=== PATIENT | male | born 1990 | race Caucasian/White ===

== ENCOUNTER 2023-06-03 13:13 | Inpatient (IN) | payer OTHER, SELFPAY ==
[2023-06-03] VITALS (11 sets, daily range): BP systolic 100–121; BP diastolic 57–73; PULSE 77–90; RESP 16–18; TEMP 36.1–37.2; O2SAT 100; BMI 21.3; BMI 21.2
[2023-06-03 13:52] LABS: Absolute Lymphocyte Count 0.46 X10^3/uL (0.83-4.51); Absolute Neutrophil Count 2.9 X10^3/uL (2.0-7.7); Basophil# 0.02 X10^3/uL; Basophil% 0.5 % (0-1); Eosinophil# 0.08 X10^3/uL; Hematocrit 22.7 % (40-54); Hemoglobin 5.8 g/dL (13.0-16.5); Lymphocyte # 0.46 X10^3/ul (0.83-4.51); Lymphocyte % 11.5 % (19-41); Mean Corp Hgb Conc 25.6 g/dL (32-36); Mean Corpuscular Hgb 16.2 pg (27.0-32.0); Mean Corpuscular Volume 63.4 fL (80-94); Mean Platelet Vol. 7.7 fl (6.2-12.0); Monocyte# 0.54 X10^3/uL; Monocyte% 13.5 % (0-10); NRBC Flagged by Analyzer 0 % (0-5); Neutrophil # 2.87 X10^3/uL (2.7-7.7); POSITIVE COUNT YES; POSITIVE DIFFERENTIAL YES; Platelet Count 457 K/mm3 (150-450); RBC Distribution Width CV 18.7 % (11.6-14.6); RBC Distribution Width SD 41.9 fl (35.1-43.9); Red Blood Count 3.58 M/mm3 (4.6-6.2)
[2023-06-03 13:54] LABS: Differential Indicated SCAN CRITERIA MET
[2023-06-03 14:03] LABS: International Normalized Ratio 1.1; Prothrombin Time (Protime)PT. 14.2 SECONDS (11.7-14.9)
[2023-06-03 14:11] LABS: ALB/GLOB Ratio 0.4 RATIO (0.9-2.4); AST(SGOT) 10 U/L (15-37); Alanine Aminotransfer ALT/SGPT 14 U/L (16-61); Albumin, Serum 1.7 g/dL (3.2-5.0); Alkaline Phosphatase 86 U/L (45-117); Anion Gap 4 (5-15); BUN 12 mg/dL (7-18); Calcium,Total 8.2 mg/dL (8.5-10.1); Chloride 110 mmol/L (98-107); Creatinine, Serum 0.86 mg/dL (0.70-1.30); EST Glomerular Filtration Rate 111 mL/min (>60); Est Glom Filt Rate - Afr Amer 134 mL/min (>60); Estimated Creatinine Clearance 129.35 ml/min; Globulin 4.4 g/dL (2.2-4.2); Glucose 97 mg/dL (74-106); Potassium 3.4 mmol/L (3.5-5.1); Protein, Total 6.1 g/dL (6.4-8.2); Sodium Level 140 mmol/L (136-145)
[2023-06-03 14:16] LABS: Anisocytosis 2+; Hypochromasia 2+; Microcytosis 2+
--- NOTE | 2023-06-03 14:51 | EX.ED.DYSGE1 ---
HPI History of Present Illness Chief Complaint: Abn Labs Onset/Context/Timing Onset: Yesterday Quality: hgb 5 Narrative Narrative: Patient presents for abnormal labs. He had a low hemoglobin on a test that was done yesterday. This was done because he has been fatigued recently. He has noted some red on toilet paper but no other bleeding. No black or tarry stools. No blood thinners. No history of GI bleeding. No history of colonoscopy. No abdominal pain or other associated symptoms or signs of fatigue. PFSH PFSH Allergy/AdvReac Type Severity Reaction Status Date / Time No Known Allergies Allergy Verified 06/03/23 13:15 Social History Smoking Status: Never smoker ROS ROS ED Constitutional Constitutional ED: Denies chills or fever(s) Eyes Eyes: Denies blurry vision ENT ENT ED: Denies ear pain Cardiovascular Cardiovascular: Denies chest pain Respiratory/Chest Respiratory/Chest: Denies dyspnea Gastrointestinal Gastrointestinal: Reports melena; Denies abdominal pain Genitourinary Genitourinary ED: Denies dysuria Musculoskeletal Musculoskeletal: Denies arthralgias Integumentary Denies abscess Neurologic Neurologic: Denies headache(s) Endocrine Endocrinology: Denies cold intolerance Allergic/Immunologic Allergic/Immunologic ED: Denies mouth swelling EXAM Physical Exam Const Vital Signs: 06/03/23 13:14 06/03/23 13:48 Temperature 97 F L Temperature Source Temporal Pulse Rate 90 Respiratory Rate 18 Respiratory Effort Normal Non-Labored Respiratory Pattern Normal Blood Pressure 115/57 L Blood Pressure Mean 76 Pulse Ox 100 Oxygen Delivery Method Room Air Positive well nourished and well developed General Appearance ED: well developed HEENT Reports moist mucous membranes Eyes EOMs intact bilaterally Neck no lymphadenopathy Resp normal respiratory effort Cardio regular rate and regular rhythm GI normal to inspection, nondistended, normoactive bowel sounds GI Narrative: External hemorrhoids noted Back/Spine no CVA tenderness Extremity normal to inspection Neuro Sensorium / Orientation: alert Skin no rashes or lesions noted MDM MDM MDM Narrative Medical decision making narrative: Patient's hemoglobin 5.8. Coags normal. Fecal occult blood test was positive. Patient is hemodynamically stable. Will treat with Protonix and packed RBCs. Discussed with the hospitalist who admit for further care Impression #1 GI bleeding Impression #2 anemia requiring transfusion Lab Data Attestation: I reviewed the patient's lab results. Labs: Laboratory Results - last 24 hr 06/03/23 13:42 WBC 4.0 L RBC 3.58 L Hgb 5.8 L* Hct 22.7 L MCV 63.4 L MCH 16.2 L MCHC 25.6 L RDW Std Deviation 41.9 RDW Coeff of Miriam 18.7 H Plt Count 457 H MPV 7.7 Immature Gran % (Auto) 0.500 Neut % (Auto) 72.0 H Lymph % (Auto) 11.5 L [place] % (Auto) 13.5 H Eos % (Auto) 2.0 Baso % (Auto) 0.5 Absolute Neuts (auto) 2.9 Absolute Lymphs (auto) 0.46 L Nucleated RBC % 0 Diff Path Review May foll Hypochromasia 2+ Anisocytosis 2+ Microcytosis 2+ PT 14.2 INR 1.1 APTT 32.0 Sodium 140 Potassium 3.4 L Chloride 110 H Carbon Dioxide 26.0 Anion Gap 4 L BUN 12 Creatinine 0.86 Estim Creat Clear Calc 129.35 Est GFR (MDRD) Af Amer 134 Est GFR (MDRD) Non-Af 111 BUN/Creatinine Ratio 14.0 Glucose 97 Calcium 8.2 L Total Bilirubin 0.20 AST 10 L ALT 14 L Alkaline Phosphatase 86 Total Protein 6.1 L Albumin 1.7 L Globulin 4.4 H Albumin/Globulin Ratio 0.4 L EKG Initial EKG: Comments: EKG interpreted by me showed sinus rhythm at a rate of 93 with no sign of ischemia or infarction pattern Critical Care Time Critical Care Time: Yes Critical care time (excluding procedures): 30-74 minutes Discharge Plan Triage Chief Complaint: Abn Labs ED Provider: John Serrano Dx/Rx/DC Orders Primary Care Provider: Jaziel Barron Referrals: Jaziel Barron DO [Primary Care Provider] -
--- NOTE | 2023-06-03 15:03 | HP.PCM.HOS_ITS ---
[facility] - General General Date of Service: 06/03/23 Chief Complaint: Weakness. [facility] Narrative HERBEI PELLETIER, is a 32 M who presents with weakness. Patient had outpatient labs that showed that he was anemic and patient was advised to come to the emergency room. In the emergency room, patient was noted to have a hemoglobin of 5.8. Patient thinks that he may have had some blood in his stool a week or so ago but that resolved. Denies any melena. No overt hematochezia otherwise. Patient was typed and crossed for 1 unit of packed red blood cells. Patient had no history of anemia in the past. [facility] Medical History (Updated 06/03/23 @ 15:[address] Sandro Dey DO) Autism spectrum Allergy/AdvReac Type Severity Reaction Status Date / Time No Known Allergies Allergy Verified 06/03/23 13:15 Social History (Updated 06/03/23 @ 15:[address] Sandor Dey DO) Smoking Status: Never smoker alcohol intake: never substance use type: does not use Vital Signs Vital Signs Vital Signs: 06/03/23 13:14 06/03/23 13:48 Temperature 36.1 C L Temperature Source Temporal Pulse Rate 90 Respiratory Rate 18 Respiratory Effort Normal Non-Labored Respiratory Pattern Normal Blood Pressure 115/57 L Blood Pressure Mean 76 Pulse Ox 100 Oxygen Delivery Method Room Air Weight Weight: 73.482 kg Body Mass Index (BMI) 21.3 Physical Exam Const alert and no apparent distress Constitutional Narrative: Nontoxic. Reserved. Answers questions sparingly but mostly answers yes/no questions. Most of the history is actually obtained through the patient's mother who is at bedside. HEENT normocephalic and hearing grossly normal bilaterally Resp normal respiratory effort and no retractions Cardio regular rate, regular rhythm, S1 normal heart sound and S2 normal heart sound GI normal to inspection, nondistended, normoactive bowel sounds, soft to palpation, non-tender and non-distended Extremity normal to inspection Results Lab / Micro Data Attestation: I reviewed the patient's lab results. 06/03/23 13:42 06/03/23 13:42 Labs: Laboratory Results - last 24 hr 06/03/23 13:42: WBC 4.0 L, RBC 3.58 L, Hgb 5.8 L*, Hct 22.7 L, MCV 63.4 L, MCH 16.2 L, MCHC 25.6 L, RDW Std Deviation 41.9, RDW Coeff of Miriam 18.7 H, Plt Count 457 H, MPV 7.7, Immature Gran % (Auto) 0.500, Neut % (Auto) 72.0 H, Lymph % (Auto) 11.5 L, [place] % (Auto) 13.5 H, Eos % (Auto) 2.0, Baso % (Auto) 0.5, Absolute Neuts (auto) 2.9, Absolute Lymphs (auto) 0.46 L, Nucleated RBC % 0, Diff Path Review May foll, Hypochromasia 2+, Anisocytosis 2+, Microcytosis 2+, PT 14.2, INR 1.1, APTT 32.0, Sodium 140, Potassium 3.4 L, Chloride 110 H, Carbon Dioxide 26.0, Anion Gap 4 L, BUN 12, Creatinine 0.86, Estim Creat Clear Calc 129.35, Est GFR (MDRD) Af Amer 134, Est GFR (MDRD) Non-Af 111, BUN/Creatinine Ratio 14.0, Glucose 97, Calcium 8.2 L, Total Bilirubin 0.20, AST 10 L, ALT 14 L, Alkaline Phosphatase 86, Total Protein 6.1 L, Albumin 1.7 L, Globulin 4.4 H, Albumin/Globulin Ratio 0.4 L Micro: Microbiology 06/03/23 14:12 Stool Stool Occult Blood (AURY) - Final Occult Blood Positive Assessment & Plan Assessment/Plan (1) Anemia: QUALIFIERS: Anemia type: unspecified type Qualified Code(s): D64.9 - Anemia, unspecified PLAN: Appears to be macrocytic which would likely indicate, also given his lack of severe symptoms, that this has been more of a chronic process. Patient has been typed and crossed for 1 unit packed red blood cells. Check iron studies, B12, folate and TSH. Clear liquid diet for now. Consult GI. Patient will need endoscopy at some point, whether that is inpatient versus outpatient will be determined. Patient receiving a bolus of 80 mg of pantoprazole in the emergency room. Will continue with 40 twice daily IV PLAN: Plan Chronic conditions * Autism spectrum: Patient has Asperger's. May limit issues in regards to the patient does require a prep for colonoscopy how well he is going to take. His family can be involved and encouraged him to do so that may be of benefit. VTE prophylaxis with SCDs. Charges/Coding Visit Charges Inpatient E&M: 23177 Init Hosp L2
[2023-06-03 15:33] LABS: Hematocrit 20.6 % (40-54); POSITIVE COUNT YES
[2023-06-03 15:41] LABS: Hemoglobin 5.5 g/dL (13.0-16.5)
[2023-06-03] MEDS: Pantoprazole Sodium 80 MG in 0.9% Normal Saline (50mL Bag) 15 ML 420 MG IV BOLUS (16:17)
[2023-06-03 18:08] LABS: Ferritin 2 ng/mL (26-388); Iron 10 ug/dL (65-175); Iron Binding Capacity,Total 171 ug/dL (250-450); PERCENT IRON SATURATION 5.8 % (15.0-55.0)
[2023-06-03] MEDS: Pantoprazole Sodium 40 MG Tablet PO (20:17)
[2023-06-03 21:30] LABS: Hemoglobin 6.6 g/dL (13.0-16.5)
[2023-06-04 00:10] VITALS: BP 116/71; PULSE 82; RESP 16; TEMP 36.8; O2SAT 99
[2023-06-04 00:55] VITALS: BP 114/69; PULSE 75; RESP 18; TEMP 37.3; O2SAT 99
[2023-06-04 02:40] LABS: Hematocrit 28.6 % (40-54); Hemoglobin 7.9 g/dL (13.0-16.5)
[2023-06-04 06:00] VITALS: BP 117/66; PULSE 68; RESP 18; TEMP 36; O2SAT 100
--- NOTE | 2023-06-04 08:21 | PN.HOSP_ITS ---
Reason for Visit Reason for Visit: Diagnoses Anemia, unspecified (06/03/23) Subjective Subjective No events overnight. Objective Data Objective Data Vital Signs: Vital Signs Temp Pulse Resp BP Pulse Ox O2 Del Method 36.0 C L 68 18 117/66 100 Room Air 06/04/23 06:00 06/04/23 06:00 06/04/23 06:00 06/04/23 06:00 06/04/23 06:00 06/04/23 08:17 Oxygen Delivery Method Room Air Weight: 72.9 kg Body Mass Index (BMI) 21.2 Intake & Output: Intake and Output for Last 24 Hours 06/02/23 06/03/23 06/04/23 23:59 23:59 23:59 Intake Total 795 / 1295 900 / 900 Balance 795 / 1295 900 / 900 Lab / Micro Data 06/04/23 08:25 06/04/23 07:17 Labs: Laboratory Results - last 24 hr 06/03/23 13:42: WBC 4.0 L, RBC 3.58 L, Hgb 5.8 L*, Hct 22.7 L, MCV 63.4 L, MCH 16.2 L, MCHC 25.6 L, RDW Std Deviation 41.9, RDW Coeff of Miriam 18.7 H, Plt Count 457 H, MPV 7.7, Immature Gran % (Auto) 0.500, Neut % (Auto) 72.0 H, Lymph % (Auto) 11.5 L, [place] % (Auto) 13.5 H, Eos % (Auto) 2.0, Baso % (Auto) 0.5, Absolute Neuts (auto) 2.9, Absolute Lymphs (auto) 0.46 L, Nucleated RBC % 0, Diff Path Review May foll, Hypochromasia 2+, Anisocytosis 2+, Microcytosis 2+, PT 14.2, INR 1.1, APTT 32.0, Sodium 140, Potassium 3.4 L, Chloride 110 H, Carbon Dioxide 26.0, Anion Gap 4 L, BUN 12, Creatinine 0.86, Estim Creat Clear Calc 129.35, Est GFR (MDRD) Af Amer 134, Est GFR (MDRD) Non-Af 111, BUN/Creatinine Ratio 14.0, Glucose 97, Calcium 8.2 L, Iron 10 L, TIBC 171 L, Iron Saturation 5.8 L, Ferritin 2 L, Total Bilirubin 0.20, AST 10 L, ALT 14 L, Alkaline Phosphatase 86, Total Protein 6.1 L, Albumin 1.7 L, Globulin 4.4 H, Albumin/Globulin Ratio 0.4 L, Folate 16.60, Blood Type Cancelled, Antibody Screen Cancelled 06/03/23 15:15: Hgb 5.5 L*, Hct 20.6 L, Diff Path Review January foll 06/03/23 16:09: Blood Type A POSITIVE, Antibody Screen NEGATIVE, Crossmatch See Detail 06/03/23 16:09: Crossmatch See Detail 06/03/23 21:17: Hgb 6.6 L 06/04/23 02:21: Hgb 7.9 L, Hct 28.6 L 06/04/23 07:17: WBC Cancelled, Corrected WBC Cancelled, RBC Cancelled, Hgb Cancelled, Hct Cancelled, MCV Cancelled, MCH Cancelled, MCHC Cancelled, RDW Std Deviation Cancelled, RDW Coeff of Miriam Cancelled, Plt Count Cancelled, MPV Cancelled, Immature Gran % (Auto) Cancelled, Neut % (Auto) Cancelled, Lymph % (Auto) Cancelled, [place] % (Auto) Cancelled, Eos % (Auto) Cancelled, Baso % (Auto) Cancelled, Absolute Neuts (auto) Cancelled, Absolute Lymphs (auto) Cancelled, Total Counted Cancelled, Neutrophils % (Manual) Cancelled, Band Neutrophils % Cancelled, Lymphocytes % (Manual) Cancelled, Monocytes % (Manual) Cancelled, Eosinophils % (Manual) Cancelled, Basophils % (Manual) Cancelled, Metamyelocytes % Cancelled, Myelocytes % Cancelled, Promyelocytes % Cancelled, Blast Cells % Cancelled, Plasma Cell % (Manual) Cancelled, Other Cells % Cancelled, Nucleated RBC % Cancelled, Nucleated RBCs/100 WBC Cancelled, Differential Comment Cancelled, Diff Path Review Cancelled, Hypersegmented Neuts Cancelled, Atypical Lymphocytes Cancelled, Reactive Lymphocytes Cancelled, Smudge Cells Cancelled, Toxic Granulation Cancelled, Toxic Vacuolation Cancelled, Dohle Bodies Ca ncelled, Jose Rods Cancelled, Platelet Estimate Cancelled, Plt Morphology Comment Cancelled, RBC Morphology Cancelled 06/04/23 07:17: RBC Morphology Cancelled, Polychromasia Cancelled, Hypochromasia Cancelled, Poikilocytosis Cancelled, Basophilic Stippling Cancelled, Anisocyto sis Cancelled, Microcytosis Cancelled, Macrocytosis Cancelled, Spherocytes Cancelled, Sickle Cells Cancelled, Target Cells Cancelled, Tear Drop Cells Cancelled, Ovalocytes Cancelled, Stomatocytes Cancelled, [place]azares[place] Bodies Cancelled, [place] Cells Cancelled, Bite Cells Cancelled, Crenated Cell Cancelled, Acanthocytes (Spur) Cancelled, Rouleaux Cancelled, Schistocytes Cancelled Micro: Microbiology 06/03/23 14:12 Stool Stool Occult Blood (AURY) - Final Occult Blood Positive Physical Exam Resp normal respiratory effort, no retractions, no use of accessory muscles and clear to auscultation bilaterally GI normal to inspection, nondistended, normoactive bowel sounds, soft to palpation, non-tender and non-distended Extremity normal to inspection Psych Psych Narrative: flat affect. Assessment & Plan Assessment/Plan (1) Anemia: QUALIFIERS: Anemia type: unspecified type Qualified Code(s): D64.9 - Anemia, unspecified PLAN: Iron-deficiency. Unknown source, but I would suspect a chronic GI loss. Improved after 2 units of PRBCs Iron 10, ferritin 2, Clear liquid diet for now. Consult GI. Patient received a bolus of 80 mg of pantoprazole in the emergency room. Continue with 40 twice daily IV Iron deficit 1900 Start Iron Sucrose 200mg daily for 3 days. Ferrous sulfate on discharge. PLAN: Plan Chronic conditions * Autism spectrum: Patient has Asperger's. May limit issues in regards to the patient does require a prep for colonoscopy how well he is going to take. His family can be involved and encouraged him to do so that may be of benefit. VTE prophylaxis with SCDs. DW pt's mother at bedside. Charges/Coding Visit Charges Inpatient E&M: 85906 Subs Hosp L2
[2023-06-04 08:28] LABS: ALB/GLOB Ratio 0.3 RATIO (0.9-2.4); AST(SGOT) 17 U/L (15-37); Alanine Aminotransfer ALT/SGPT 13 U/L (16-61); Albumin, Serum 1.4 g/dL (3.2-5.0); Alkaline Phosphatase 81 U/L (45-117); Anion Gap 4 (5-15); BUN 9 mg/dL (7-18); BUN/Creat Ratio 10.2 RATIO (10-20); Calcium,Total 7.6 mg/dL (8.5-10.1); Chloride 113 mmol/L (98-107); Creatinine, Serum 0.89 mg/dL (0.70-1.30); EST Glomerular Filtration Rate 106 mL/min (>60); Est Glom Filt Rate - Afr Amer 129 mL/min (>60); Globulin 4.3 g/dL (2.2-4.2); Glucose 75 mg/dL (74-106); Potassium 3.7 mmol/L (3.5-5.1); Protein, Total 5.7 g/dL (6.4-8.2); Sodium Level 140 mmol/L (136-145)
[2023-06-04 08:39] LABS: Absolute Lymphocyte Count 0.48 X10^3/uL (0.83-4.51); Absolute Neutrophil Count 2.2 X10^3/uL (2.0-7.7); Basophil# 0.02 X10^3/uL; Basophil% 0.6 % (0-1); Eosinophil# 0.09 X10^3/uL; Eosinophils% 2.7 % (0-5); Hematocrit 27.6 % (40-54); Hemoglobin 7.7 g/dL (13.0-16.5); Lymphocyte # 0.48 X10^3/ul (0.83-4.51); Lymphocyte % 14.3 % (19-41); Mean Corp Hgb Conc 27.9 g/dL (32-36); Mean Corpuscular Hgb 19.4 pg (27.0-32.0); Mean Corpuscular Volume 69.7 fL (80-94); Mean Platelet Vol. 8.2 fl (6.2-12.0); Monocyte# 0.52 X10^3/uL; Monocyte% 15.5 % (0-10); NRBC Flagged by Analyzer 0 % (0-5); Neutrophil # 2.24 X10^3/uL (2.7-7.7); Neutrophil % 66.6 % (47-70); POSITIVE DIFFERENTIAL YES; POSITIVE MORPHOLOGY YES; Platelet Count 436 K/mm3 (150-450); RBC Distribution Width CV 24.3 % (11.6-14.6); RBC Distribution Width SD 58.9 fl (35.1-43.9); Red Blood Count 3.96 M/mm3 (4.6-6.2); White Blood Count 3.4 K/mm3 (4.4-11.0)
[2023-06-04 08:40] LABS: Differential Indicated SCAN CRITERIA MET
[2023-06-04 09:04] LABS: Anisocytosis 2+; Hypochromasia 2+
[2023-06-04] MEDS: 0.9% Saline Lock 10 ML Syringe IV (10:24)
[2023-06-04] MEDS: Pantoprazole Sodium 40 MG Tablet PO ×2 (10:24→20:08)
[2023-06-04] MEDS: Sodium Ferric Gluconat/Sucrose 250 MG in 0.9% Normal Saline (250mL Bag) 250 ML 135 MG IV (10:25)
[2023-06-04 10:30] VITALS: BP 107/65; PULSE 67; RESP 16; TEMP 36.6; O2SAT 100
[2023-06-04] MEDS: Sertraline 100 MG Tablet PO (11:36)
[2023-06-04 17:10] VITALS: BP 114/77; PULSE 70; RESP 16; TEMP 36.7; O2SAT 100
--- NOTE | 2023-06-04 17:20 | CON.PCM.GI_ITS ---
HPI Consult Data Date of Consult: 06/04/23 HPI Narrative Reason for Consultation: Anemia HPI Narrative: HERBIE PELLETIER, is a 32 M who presents for abnormal labs. He was sent in by his PCP when he was discovered to have a hemoglobin of 5.8. His baseline runs in between 14 and 15. Almost all of history is obtained from the chart and the shonda pritchett's mother. He had a low hemoglobin on a test that was done yesterday. This was done because he has been fatigued recently. He has noted some red on toilet paper but no other bleeding. No black or tarry stools. No blood thinners. No history of GI bleeding. No history of colonoscopy. No abdominal pain or other associated symptoms or signs of fatigue. There is no family history of colon cancer. He does not take any NSAIDs. He does take sertraline. He does not take any more medicines on a daily basis. [facility] Medical History (Updated 06/03/23 @ 15:[address] Sandro Dey DO) Autism spectrum Home Medications sertraline 100 mg tablet 100 mg PO DAILY Depression 06/03/23 [History Last Taken 06/03/23] Allergy/AdvReac Type Severity Reaction Status Date / Time No Known Allergies Allergy Verified 06/03/23 13:15 Social History (Updated 06/03/23 @ 15:[address] Sandro Dey DO) Smoking Status: Never smoker alcohol intake: never substance use type: does not use ROS Review of Systems ROS Unobtainable: other Constitutional Constitutional: Denies fatigue, fever(s), poor appetite, weight gain or weight loss ENT HEENT: Denies mouth lesions Cardiovascular Cardiovascular: Denies abdominal bloating, abdominal edema or abdominal pain Respiratory/Chest Respiratory/Chest: Denies change in mental status, change in phlegm color, chest congestion or chest tightness Gastrointestinal Gastrointestinal: Denies belching, bloating, change in bowel habits, change in stool character, chewing difficulty, coffee ground emesis, constipation, cramping, diarrhea, dyspepsia, dysphagia, early satiety, excessive flatus, fecal incontinence, heartburn, hematemesis, hematochezia, hemorrhoids, loose stools, melena, nausea, odynophagia, rectal bleeding, tenesmus, vomiting or weight changes Genitourinary Genitourinary: Denies abdominal discomfort, burning urination or itching Musculoskeletal Musculoskeletal: Reports as per HPI; Denies muscle weakness or myalgias Integumentary Integumentary: Denies jaundice Neurologic Neurologic: Denies lack of coordination or weakness Psychiatric Psychiatric: Denies confusion, depression, memory loss, mood swings, paranoia or suicidal ideation Endocrine Endocrinology: Denies systems reviewed and no addt'l complaints, except as documented Hematologic/Lymphatic Hematologic/Lymphatic: Denies anemia, easy bleeding, easy bruising or lymphadenopathy Allergic/Immunologic Allergic/Immunologic: Denies systems reviewed and no addt'l complaints, except as documented Physical Exam Resp normal respiratory effort, no retractions, no use of accessory muscles and clear to auscultation bilaterally GI normal to inspection, nondistended, normoactive bowel sounds, soft to palpation, non-tender and non-distended Extremity normal to inspection Psych Psych Narrative: flat affect. Lab / Micro Data 06/04/23 08:25 06/04/23 07:17 Labs: Laboratory Results - last 24 hr 06/03/23 13:42: Iron 10 L, TIBC 171 L, Iron Saturation 5.8 L, Ferritin 2 L, Folate 16.60 06/03/23 16:09: Antibody Screen NEGATIVE, Crossmatch See Detail 06/03/23 16:09: Crossmatch See Detail 06/03/23 21:17: Hgb 6.6 L 06/04/23 02:21: Hgb 7.9 L, Hct 28.6 L 06/04/23 07:17: WBC Cancelled, Corrected WBC Cancelled, RBC Cancelled, Hgb Cancelled, Hct Cancelled, MCV Cancelled, MCH Cancelled, MCHC Cancelled, RDW Std Deviation Cancelled, RDW Coeff of Miriam Cancelled, Plt Count Cancelled, MPV Cancelled, Immature Gran % (Auto) Cancelled, Neut % (Auto) Cancelled, Lymph % (Auto) Cancelled, [place] % (Auto) Cancelled, Eos % (Auto) Cancelled, Baso % (Auto) Cancelled, Absolute Neuts (auto) Cancelled, Absolute Lymphs (auto) Cancelled, Total Counted Cancelled, Neutrophils % (Manual) Cancelled, Band Neutrophils % Cancelled, Lymphocytes % (Manual) Cancelled, Monocytes % (Manual) Cancelled, Eosinophils % (Manual) Cancelled, Basophils % (Manual) Cancelled, Metamyelocytes % Cancelled, Myelocytes % Cancelled, Promyelocytes % Cancelled, Blast Cells % Cancelled, Plasma Cell % (Manual) Cancelled, Other Cells % Cancelled, Nucleated RBC % Cancelled, Nucleated RBCs/100 WBC Cancelled, Differential Comment Cancelled, Diff Path Review Cancelled, Hypersegmented Neuts Cancelled, Atypical Lymphocytes Cancelled, Reactive Lymphocytes Cancelled, Smudge Cells Cancelled, Toxic Granulation Cancelled, Toxic Vacuolation Cancelled, Dohle Bodies Cancelled, Jose Rods Cancelled, Platelet Estimate Cancelled, Plt Morphology Comment Cancelled, RBC Morphology Cancelled 06/04/23 07:17: RBC Morphology Cancelled, Polychromasia Cancelled, Hypochromasia Cancelled, Poikilocytosis Cancelled, Basophilic Stippling Cancelled, Anisoc ytosis Cancelled, Microcytosis Cancelled, Macrocytosis Cancelled, Spherocytes Cancelled, Sickle Cells Cancelled, Target Cells Cancelled, Tear Drop Cells Cancelled, Ovalocytes Cancelled, Stomatocytes Cancelled, [place] Bodies Cancelled, [place] Cells Cancelled, Bite Cells Cancelled, Crenated Cell Cancelled, Acanthocytes (Spur) Cancelled, Rouleaux Cancelled, Schistocytes Cancelled, Sodium 140, Potassium 3.7, Chloride 113 H, Carbon Dioxide 23.0, Anion Gap 4 L, BUN 9, Creatinine 0.89, Estim Creat Clear Calc 124.00, Est GFR (MDRD) Af Amer 129, Est GFR (MDRD) Non-Af 106, BUN/Creatinine Ratio 10.2, Glucose 75, Calcium 7.6 L, Total Bilirubin 0.20, AST 17, ALT 13 L, Alkaline Phosphatase 81, Total Protein 5.7 L, Albumin 1.4 L, Globulin 4.3 H, Albumin/Globulin Ratio 0.3 L 06/04/23 08:25: WBC 3.4 L, RBC 3.96 L, Hgb 7.7 L, Hct 27.6 L, MCV 69.7 L D, MCH 19.4 L, MCHC 27.9 L D, RDW Std Deviation 58.9 H, RDW Coeff of Miriam 24.3 H, Plt Count 436, MPV 8.2, Immature Gran % (Auto) 0.300, Neut % (Auto) 66.6, Lymph % (Auto) 14.3 L, [place] % (Auto) 15.5 H, Eos % (Auto) 2.7, Baso % (Auto) 0.6, Absolute Neuts (auto) 2.2, Absolute Lymphs (auto) 0.48 L, Nucleated RBC % 0, Hypochromasia 2+, Anisocytosis 2+ Micro: Microbiology 06/03/23 14:12 Stool Stool Occult Blood (AURY) - Final Occult Blood Positive Assessment & Plan Assessment/Plan (1) Anemia: QUALIFIERS: Anemia type: unspecified type Qualified Code(s): D64.9 - Anemia, unspecified PLAN: Plan 32-year-old gentleman comes in with new onset anemia. Differential diagnosis does include celiac disease, angiodysplastic lesions, neoplasia, peptic ulcer disease secondary to H. pylori. He should undergo upper and lower endoscopy and possible capsule endoscopy. I will also send off celiac disease labs and other labs to see if he has any other autoimmune disease associated with malabsorption of iron. Agree with iron transfusions, blood transfusions and likely oral iron as an outpatient. Charges/Coding Visit Charges Inpatient E&M: 51427 Init Hosp L3
[2023-06-04] MEDS: Bisacodyl 5 MG Tablet 20 MG PO (17:24)
[2023-06-04] MEDS: Polyethylene Glycol 3350 BOWEL PREP PO (18:01)
[2023-06-04 20:10] VITALS: BP 115/64; PULSE 69; RESP 18; TEMP 36.1; O2SAT 98
[2023-06-04 21:06] VITALS: BMI 21.2
[2023-06-05] VITALS (13 sets, daily range): BP systolic 101–148; BP diastolic 60–106; PULSE 69–138; RESP 16–18; TEMP 36.3–39.6; O2SAT 97–100
--- NOTE | 2023-06-05 | COLBX_PTH ---
PATIENT: HERBIE PELLETIER LOC: [facility] U#:[id number] AGE/SX: 32/M ROOM: [facility] RE06/03/[address]: Dr. Dank Washington MD : 1990 BED: 1 DIS: 06/06/2023 SPEC #: [id number] RECD: 06/05/23 14:05 STATUS: BRITTANI RENessa #: [id number] DEBRA: 06/05/23 00:[address]: Ephraim Sandoval DEPT: SURGICAL PATHOLOGY RECD BY: Juan Brewer ENTERED: 06/06/23 08:19 SP TYPE: COLON BX OTHR DR: Dr. Jaziel Barron, DO MD Dr. Sandro Leung, Tissues: A - Duodenum, NOS B - Pyloric sphincter C - Sigmoid colon biopsy D - Anus, NOS Procedures: Special Stain Group I Surgery Specimen Level IV AFB Stain (control) GMS Stain (control) Comments: @ Ordering doctor for SUIV edited from to @ by RGOOD at 06/06/23 1432 @ Submitting doctor edited from to @ by RGOOD at 06/06/23 1431 HEADER OPERATION: Colonoscopy with biopsy, EGD with biopsy PRE-OP DIAGNOSIS: Anemia TISSUE SUBMITTED: A - Duodenum biopsy, B - Pylorus sphincter mass biopsy, C - Sigmoid biopsy severe colitis, D - Anus biopsy MICROSCOPIC DIAGNOSIS A. Duodenum, biopsy: No pathologic change. B. Pyloric sphincter mass, biopsy: Focal non-necrotizing granulomatous inflammation. Negative for acid-fast bacilli and fungal organisms. See comment. C. Sigmoid colon, biopsy: Acute colitis with focal mucosal ulceration and associated granulation and fibrinopurulent material. D. Anus, biopsy: Acute colitis. See comment. AM:sue 06/07/2023 COMMENT B. AFB and GMS stains with matched controls were used in the evaluation of this case. D. Sections show cryptitis, crypt abscesses, minimal glandular distortion, granulation and fibrinopurulent material. No transmural lymphoid aggregates are identified. Clinical correlation is suggested. MICROSCOPIC DESCRIPTION Slides are reviewed. GROSS DESCRIPTION A - Received in fixative is one container labeled with the patient's name and designated duodenum biopsy. The specimen consists of multiple irregular fragments of light lemus soft tissue that in aggregate measure 1.2 x 0.8 x 0.1 cm. The specimen is totally submitted in one cassette. B - Received in fixative is one container labeled with the patient's name and designated pylorus sphincter mass biopsy. The specimen consists of two irregular fragments of light lemus soft tissue that in aggregate measure 0.8 x 0.3 x 0.1 cm. The specimen is totally submitted in one cassette. C - Received in fixative is one container labeled with the patient's name and designated sigmoid biopsy. The specimen consists of multiple irregular fragments of light lemus soft tissue that in aggregate measure 1.5 x 0.4 x 0.1 cm. The specimen is totally submitted in one cassette. D - Received in fixative is one container labeled with the patient's name and designated anus biopsy. The specimen consists of multiple irregular fragments of light lemus soft tissue that in aggregate measure 1.0 x 0.3 x 0.1 cm. The specimen is totally submitted in one cassette. / SJ:rg 06/06/2023 TC:2 [facility]: [id number] x4, [id number] x2
[2023-06-05 06:48] LABS: Basophil# 0.02 X10^3/uL; Basophil% 0.6 % (0-1); Eosinophil# 0.08 X10^3/uL; Eosinophils% 2.5 % (0-5); Hematocrit 28.1 % (40-54); Hemoglobin 7.8 g/dL (13.0-16.5); Lymphocyte % 15.6 % (19-41); Mean Corp Hgb Conc 27.8 g/dL (32-36); Mean Corpuscular Hgb 19.2 pg (27.0-32.0); Mean Corpuscular Volume 69.2 fL (80-94); Mean Platelet Vol. 8.1 fl (6.2-12.0); Monocyte# 0.56 X10^3/uL; Monocyte% 17.4 % (0-10); NRBC Flagged by Analyzer 0 % (0-5); Neutrophil # 2.04 X10^3/uL (2.7-7.7); Neutrophil % 63.6 % (47-70); POSITIVE DIFFERENTIAL YES; POSITIVE MORPHOLOGY YES; Platelet Count 514 K/mm3 (150-450); RBC Distribution Width CV 24.4 % (11.6-14.6); RBC Distribution Width SD 58.5 fl (35.1-43.9); Red Blood Count 4.06 M/mm3 (4.6-6.2); White Blood Count 3.2 K/mm3 (4.4-11.0)
[2023-06-05 06:53] LABS: Differential Indicated SCAN CRITERIA MET
[2023-06-05 07:15] LABS: Hypochromasia 1+
[2023-06-05 07:16] LABS: Anisocytosis 1+; Platelet Estimate SLT INC (ADEQ)
[2023-06-05 07:30] LABS: Thyroid Stim Hormone (TSH) 4.79 uIU/mL (0.358-3.74)
[2023-06-05 08:25] LABS: Vitamin B12 827 pg/mL (211-911)
[2023-06-05] MEDS: Sodium Ferric Gluconat/Sucrose 250 MG in 0.9% Normal Saline (250mL Bag) 250 ML 135 MG IV (10:24)
[2023-06-05] MEDS: 0.9% Saline Lock 10 ML Syringe IV ×3 (10:29→22:52)
--- NOTE | 2023-06-05 11:02 | PCM.PN.HOSP ---
Reason for Visit Reason for Visit: Diagnoses Anemia, unspecified (06/03/23) Objective Data Objective Data Vital Signs: Vital Signs Temp Pulse Resp BP Pulse Ox O2 Del Method 97.8 F 81 16 106/64 99 Room Air 06/05/23 07:58 06/05/23 07:58 06/05/23 07:58 06/05/23 07:58 06/05/23 07:58 06/05/23 07:58 Oxygen Delivery Method Room Air Weight: 72.9 kg Body Mass Index (BMI) 21.2 Intake & Output: Intake and Output for Last 24 Hours 06/03/23 06/04/23 06/05/23 23:59 23:59 23:59 Intake Total 795 / 1295 3950 / 3950 Balance 795 / 1295 3950 / 3950 Lab / Micro Data 06/05/23 04:58 06/04/23 07:17 Labs: Laboratory Results - last 24 hr 06/03/23 21:17: Vitamin B12 827 06/05/23 04:58: WBC 3.2 L, RBC 4.06 L, Hgb 7.8 L, Hct 28.1 L, MCV 69.2 L, MCH 19.2 L, MCHC 27.8 L, RDW Std Deviation 58.5 H, RDW Coeff of Miriam 24.4 H, Plt Count 514 H, MPV 8.1, Immature Gran % (Auto) 0.300, Neut % (Auto) 63.6, Lymph % (Auto) 15.6 L, [place] % (Auto) 17.4 H, Eos % (Auto) 2.5, Baso % (Auto) 0.6, Absolute Neuts (auto) 2.0, Absolute Lymphs (auto) 0.50 L, Nucleated RBC % 0, Diff Path Review January, Platelet Estimate [employer], Hypochromasia 1+, Anisocytosis 1+, TSH 4.79 H Micro: Microbiology 06/03/23 14:12 Stool Stool Occult Blood (AURY) - Final Occult Blood Positive Assessment & Plan Assessment/Plan (1) Anemia: QUALIFIERS: Anemia type: unspecified type Qualified Code(s): D64.9 - Anemia, unspecified PLAN: Plan Patient is a 32-year-old gentleman sent today ED by the primary care physician after patient was found to be anemic following work-up for significant fatigue hemoglobin was found to be 5.9 on admission 1. Microcytic anemia ? Suspected to be secondary to chronic blood loss anemia admitted to monitored bed transfused with 2 unit PRBC, started on Protonix as well as parenteral iron with consultation placed to GI. Patient seen in consultation by Dr. Sandoval with planned upper and lower endoscopy and possibly capsule endoscopy. 2. Depression ? Patient is on sertraline 3. Autism spectrum: Patient has Asperger's ? Complicating care. 4. DVT prophylaxis ? Chemoprophylaxis contraindicated given patient's significant anemia Time spent in the patient's overall evaluation,decision-making process, review of diagnostic data, adjustment of management, discussion with other providers, nursing nursing and ancillary staff involved in patient's care documentation, 40 minutes Charges/Coding Visit Charges Inpatient E&M: 80796 Subs Hosp L2
--- NOTE | 2023-06-05 13:16 | OP.CCLET_ITS ---
06/05/2023 Jaziel Barron Re : Upper GI endoscopy procedure for Tristan Klein Joannar Beatrice This procedure was performed on Monday, June 05, 2023. My impressions and recommendations are as follows: Impressions : - Esophageal mucosal changes consistent with eosinophilic esophagitis. Dilated. - Medium-sized hiatal hernia. 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 Biopsied. - Erythematous duodenopathy. Biopsied. Recommendations : - [facility]. - Resume previous diet. - Continue present medications. - Await pathology results. My findings are described in the full procedure note, which is enclosed. If I can be of further assistance, please feel free to contact me at . Sincerely, Ephraim Sandoval, 06/05/2023 1:16:28 PM This report has been signed electronically.
--- NOTE | 2023-06-05 13:16 | OP.EGD_ITS ---
Patient Name: Tristan Klein Procedure Date: 06/05/2023 12:37 PM Date of : 1990 Age: 32 Procedure: Upper GI endoscopy Indications: Dysphagia Providers: Ephraim Sandoval DO Medicines: Monitored Anesthesia Care Patient Profile: This is a 32 year old male. Refer to note in patient chart for documentation of history and physical. Patient has symptoms of acute epigastric abdominal pain. Complications: No immediate complications. Procedure: Pre-Anesthesia Assessment: - Prior to the procedure, a History and Physical was performed, and patient medications and allergies were reviewed. The patient is competent. The risks and benefits of the procedure and the sedation options and risks were discussed with the patient. All questions were answered and informed consent was obtained. Patient identification and proposed procedure were verified by the physician in the pre-procedure area. Mental Status Examination: alert and oriented. Airway Examination: normal oropharyngeal airway and neck mobility. Respiratory Examination: clear to auscultation. CV Examination: normal. Prophylactic Antibiotics: The patient does not require prophylactic antibiotics. Prior Anticoagulants: The patient has taken no anticoagulant or antiplatelet agents. ASA Grade Assessment: II - A patient with mild systemic disease. After reviewing the risks and benefits, the patient was deemed in satisfactory condition to undergo the procedure. The anesthesia plan was to use monitored anesthesia care (MAC). Immediately prior to administration of medications, the patient was re-assessed for adequacy to receive sedatives. The heart rate, respiratory rate, oxygen saturations, blood pressure, adequacy of pulmonary ventilation, and response to care were monitored throughout the procedure. The physical status of the patient was re-assessed after the procedure. After obtaining informed consent, the endoscope was passed under direct vision. Throughout the procedure, the patient's blood pressure, pulse, and oxygen saturations were monitored continuously. The Colonoscope was introduced through the mouth, and advanced to the second part of duodenum. The upper GI endoscopy was accomplished without difficulty. The patient tolerated the procedure well. Scope In: 12:48:48 PM Scope Out: 12:55:44 PM Total Procedure Duration Time 0 hours 6 minutes 56 seconds Findings: Mucosal changes including ringed esophagus, feline appearance, longitudinal furrows and small-caliber esophagus were found in the lower third of the esophagus. A guidewire was placed and the scope was withdrawn. Dilation was performed with a Savary dilator with no resistance at 42 Fr. A medium-sized hiatal hernia was present. A medium-sized, polypoid, non-circumferential mass with no bleeding and no stigmata of recent bleeding was found at the pylorus. Biopsies were taken with a cold forceps for histology. Verification of patient identification for the specimen was done. Estimated blood loss was minimal. Patchy mildly erythematous mucosa without active bleeding and with no stigmata of bleeding was found in the duodenal bulb, in the first portion of the duodenum and in the second portion of the duodenum. Biopsies were taken with a cold forceps for histology. Verification of patient identification for the specimen was done. Estimated blood loss was minimal. Impression: - Esophageal mucosal changes consistent with eosinophilic esophagitis. Dilated. - Medium-sized hiatal hernia. 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 Biopsied. - Erythematous duodenopathy. Biopsied. Recommendation: - Return [facility] care. - Resume previous diet. - Continue present medications. - Await pathology results. Procedure Code(s): --- Professional --- 65169, Esophagogastroduodenoscopy, flexible, transoral; with insertion of guide wire followed by passage of dilator(s) through esophagus over guide wire 62599, 59,51, Esophagogastroduodenoscopy, flexible, transoral; with biopsy, single or multiple CPT copyright 2021 [employer]. All rights reserved. The codes documented in this report are preliminary and upon patient care technician instructor review may be revised to meet current compliance requirements. Ephraim Sandoval DO 06/05/2023 1:16:28 PM This report has been signed electronically. Number of Addenda: 0 Note Initiated On: 06/05/2023 12:37 PM
--- NOTE | 2023-06-05 13:21 | OP.COLON_ITS ---
Patient Name: Tristan Klein Procedure Date: 06/05/2023 12:55 PM Date of : 1990 Age: 32 Procedure: Colonoscopy Indications: Iron deficiency anemia Providers: Ephraim Sandoval DO Medicines: Monitored Anesthesia Care Patient Profile: This is a 32 year old male. Refer to note in patient chart for documentation of history and physical. Patient has symptoms of acute epigastric abdominal pain. Last Colonoscopy: none. The patient's first colonoscopy is today. Complications: No immediate complications. Procedure: Pre-Anesthesia Assessment: - Prior to the procedure, a History and Physical was performed, and patient medications and allergies were reviewed. The patient is competent. The risks and benefits of the procedure and the sedation options and risks were discussed with the patient. All questions were answered and informed consent was obtained. Patient identification and proposed procedure were verified by the physician in the pre-procedure area. Mental Status Examination: alert and oriented. Airway Examination: normal oropharyngeal airway and neck mobility. Respiratory Examination: clear to auscultation. CV Examination: normal. Prophylactic Antibiotics: The patient does not require prophylactic antibiotics. Prior Anticoagulants: The patient has taken no anticoagulant or antiplatelet agents. ASA Grade Assessment: II - A patient with mild systemic disease. After reviewing the risks and benefits, the patient was deemed in satisfactory condition to undergo the procedure. The anesthesia plan was to use monitored anesthesia care (MAC). Immediately prior to administration of medications, the patient was re-assessed for adequacy to receive sedatives. The heart rate, respiratory rate, oxygen saturations, blood pressure, adequacy of pulmonary ventilation, and response to care were monitored throughout the procedure. The physical status of the patient was re-assessed after the procedure. After I obtained informed consent, the scope was passed under direct vision. Throughout the procedure, the patient's blood pressure, pulse, and oxygen saturations were monitored continuously. The Colonoscope was introduced through the anus and advanced to the splenic flexure. Scope In: 12:58:20 PM Scope Out: 1:12:28 PM Total Procedure Duration Time 0 hours 14 minutes 8 seconds Findings: Hemorrhoids were found on perianal exam. Inflammation characterized by erosions, erythema, granularity and aphthous ulcerations was found as patches surrounded by normal mucosa in the anus, in the rectum, in the sigmoid colon, in the descending colon and in the splenic flexure. The sigmoid colon was spared. The inflammation was severe, and when compared to previous examinations, the findings are new. Biopsies were taken with a cold forceps for histology. Verification of patient identification for the specimen was done. Estimated blood loss was minimal. Impression: - Hemorrhoids found on perianal exam. - Inflammatory bowel disease. Inflammation was found in the anus, in the rectum, in the sigmoid colon, in the descending colon and in the splenic flexure. This was severe, new compared to previous examinations. Biopsied. Recommendation: - Return [facility] care. - Resume previous diet. - Repeat colonoscopy is recommended. The colonoscopy date will be determined after pathology results from today's exam become available for review. - Continue present medications. Procedure Code(s): --- Professional --- 23280, 52, Colonoscopy, flexible; with biopsy, single or multiple CPT copyright 2021 [employer]. All rights reserved. The codes documented in this report are preliminary and upon cook fruit review may be revised to meet current compliance requirements. Ephraim Sandoval DO 06/05/2023 1:21:00 PM This report has been signed electronically. Number of Addenda: 0 Note Initiated On: 06/05/2023 12:55 PM
--- NOTE | 2023-06-05 13:21 | OP.CCLET_ITS ---
06/05/2023 Jaziel Barron Re : Colonoscopy procedure for Tristan Klein Dear Beatrice This procedure was performed on Monday, June 05, 2023. My impressions and recommendations are as follows: Impressions : - Hemorrhoids found on perianal exam. - Inflammatory bowel disease. Inflammation was found in the anus, in the rectum, in the sigmoid colon, in the descending colon and in the splenic flexure. This was severe, new compared to previous examinations. Biopsied. Recommendations : - Return [facility]. - Resume previous diet. - Repeat colonoscopy is recommended. The colonoscopy date will be determined after pathology results from today's exam become available for review. - Continue present medications. My findings are described in the full procedure note, which is enclosed. If I can be of further assistance, please feel free to contact me at . Sincerely, Ephraim Sandoval, 06/05/2023 1:21:00 PM This report has been signed electronically.
--- NOTE | 2023-06-05 13:30 | CT_ITS ---
STUDY: CT ABDOMEN AND PELVIS WITH CONTRAST REASON FOR EXAM: Male, 32 years old. severe crohns disease -- Please give oral contrast RADIATION DOSAGE (If Supplied By Facility): CTDIvol = ( 8.45 ) mGy, DLP = ( 569.76 ) mGycm TECHNIQUE: Transaxial images were obtained from the dome of the diaphragm to the symphysis pubis without oral contrast. Oral and amp; IV Gastrografin and amp; 100mL Isovue-300 was administered. Sagittal and coronal images were reconstructed. Individualized dose optimization techniques were used for this CT. COMPARISON: None. FINDINGS: The visualized lung bases are unremarkable. The visualized portions of the heart are within normal limits. Mildly enlarged fatty infiltrated liver without mass or bile duct dilatation.. Normal gallbladder and extrahepatic biliary system. Normal spleen. Normal pancreas. Normal bilateral adrenal glands. Normal right kidney. Normal left kidney. Normal visualized stomach. There is concentric thickening of the emmanuel of the terminal ileum and proximal ascending colon at the ileocecal valve. There is also extensive thickening of the emmanuel of the descending colon and proximal sigmoid colon as well as the rectum extending to the anorectal junction demonstrating stranding in the fat most pronounced in the descending colon and rectum consistent with acute exacerbation. . Normal abdominal aorta. Normal inferior vena cava. Normal retroperitoneum. Normal urinary bladder. Normal abdominal wall. Normal osseous structures. CT/Abdomen/Pelvis WITH Contrast IMPRESSION: Findings consistent with known Crohn''s disease with most severe acute involvement of the descending colon and anorectal segments at this time Electronically Signed: Pancho Valenzuela MD at 17:58 EDT ,
[2023-06-05 13:40] LABS: Pathologist Review Reviewed
[2023-06-05 13:41] LABS: Pathologist Review Reviewed
[2023-06-05 13:45] LABS: Pathologist Review Reviewed
[2023-06-05] MEDS: Sertraline 100 MG Tablet PO (14:36)
[2023-06-05] MEDS: Pantoprazole Sodium 40 MG Tablet PO ×2 (14:36→20:21)
--- NOTE | 2023-06-05 14:45 | CASEMGMT ---
RN BEN Face to Face with patient for initial transition planning/care coordination assessment. RN CM introduced self and role at [facility]. Patient lying in bed, alert and oriented, mother at bedside. Patient willing to participate in assessment and is able to answer all questions appropriately. Care providers, pharmacy, and demographics verified. Patient wishes to discharge home, denies need for home health at this time. Patient states he has no further needs or concerns at this time. CM to follow for discharge planning needs that may arise. PCP: Beatrice Specialists: Leticia neurologeben [facility] Preferred Pharmacy: [facility] Insurance: [employer] Prescription Benefit:yes Living Will/HPOA: none LNOK: mother Living Arrangements: Patient lives alone in a basement apartment at sister's house. Patient is independent and able to ambulate stairs Transportation: mother DME/HHC: Patient denies DME or previous HHC Disposition Plan: Patient to discharge home with family support and follow-up plans in place. Yun HUFFMAN, RN, CM
[2023-06-05] MEDS: Acetaminophen 325 MG Tablet 650 MG PO (19:53)
[2023-06-05] MEDS: 0.9% Normal Saline (1000mL) 1,000 ML 125 ML IV (20:24)
[2023-06-05 21:13] LABS: Absolute Lymphocyte Count 0.13 X10^3/uL (0.83-4.51); Absolute Neutrophil Count 10.1 X10^3/uL (2.0-7.7); Basophil# 0.02 X10^3/uL; Basophil% 0.2 % (0-1); Eosinophil# 0.02 X10^3/uL; Eosinophils% 0.2 % (0-5); Hemoglobin 7.8 g/dL (13.0-16.5); Lymphocyte # 0.13 X10^3/ul (0.83-4.51); Lymphocyte % 1.2 % (19-41); Mean Corp Hgb Conc 27.9 g/dL (32-36); Mean Corpuscular Hgb 19.1 pg (27.0-32.0); Mean Corpuscular Volume 68.6 fL (80-94); Mean Platelet Vol. 7.7 fl (6.2-12.0); Monocyte# 0.55 X10^3/uL; Monocyte% 5.1 % (0-10); NRBC Flagged by Analyzer 0 % (0-5); Neutrophil # 10.07 X10^3/uL (2.7-7.7); Neutrophil % 92.7 % (47-70); POSITIVE DIFFERENTIAL YES; POSITIVE MORPHOLOGY YES; Platelet Count 409 K/mm3 (150-450); RBC Distribution Width CV 24.9 % (11.6-14.6); RBC Distribution Width SD 58.5 fl (35.1-43.9); Red Blood Count 4.08 M/mm3 (4.6-6.2); White Blood Count 10.9 K/mm3 (4.4-11.0)
[2023-06-05 21:15] LABS: Differential Indicated SCAN CRITERIA MET
[2023-06-05 21:26] LABS: Anion Gap 7 (5-15); BUN 6 mg/dL (7-18); BUN/Creat Ratio 5.6 RATIO (10-20); Calcium,Total 7.4 mg/dL (8.5-10.1); Chloride 105 mmol/L (98-107); Creatinine, Serum 1.07 mg/dL (0.70-1.30); EST Glomerular Filtration Rate 85 mL/min (>60); Est Glom Filt Rate - Afr Amer 103 mL/min (>60); Estimated Creatinine Clearance 103.14 ml/min; Glucose 99 mg/dL (74-106); Potassium 3.2 mmol/L (3.5-5.1); Sodium Level 137 mmol/L (136-145)
[2023-06-05 21:41] LABS: Differential Comment SCANNED
[2023-06-05] MEDS: 0.9% Normal Saline (500mL Bag) 500 ML 999 ML IV (22:52)
[2023-06-05] MEDS: Ceftriaxone 1 GM/50 ML BAG IV (22:52)
[2023-06-06] VITALS (7 sets, daily range): BP systolic 94–118; BP diastolic 54–62; PULSE 82–112; RESP 16–18; TEMP 36.6–39.2; O2SAT 97–100
[2023-06-06] MEDS: Acetaminophen 325 MG Tablet 650 MG PO (03:11)
[2023-06-06] MEDS: 0.9% Normal Saline (1000mL) 1,000 ML 125 ML IV (05:35)
[2023-06-06] MEDS: Ibuprofen 400 MG Tablet PO (05:48)
[2023-06-06 07:17] LABS: Absolute Lymphocyte Count 0.14 X10^3/uL (0.83-4.51); Absolute Neutrophil Count 6.3 X10^3/uL (2.0-7.7); Basophil# 0.01 X10^3/uL; Basophil% 0.1 % (0-1); Differential Indicated SCAN CRITERIA MET; Hematocrit 27.1 % (40-54); Hemoglobin 7.5 g/dL (13.0-16.5); Lymphocyte # 0.14 X10^3/ul (0.83-4.51); Mean Corp Hgb Conc 27.7 g/dL (32-36); Mean Corpuscular Hgb 19.1 pg (27.0-32.0); Mean Corpuscular Volume 69.1 fL (80-94); Mean Platelet Vol. 8.1 fl (6.2-12.0); Monocyte# 0.37 X10^3/uL; Monocyte% 5.4 % (0-10); NRBC Flagged by Analyzer 0 % (0-5); Neutrophil # 6.31 X10^3/uL (2.7-7.7); Neutrophil % 91.8 % (47-70); POSITIVE COUNT YES; POSITIVE DIFFERENTIAL YES; POSITIVE MORPHOLOGY YES; RBC Distribution Width CV 25.3 % (11.6-14.6); RBC Distribution Width SD 60.4 fl (35.1-43.9); Red Blood Count 3.92 M/mm3 (4.6-6.2); White Blood Count 6.9 K/mm3 (4.4-11.0)
[2023-06-06 07:44] LABS: Anion Gap 8 (5-15); BUN 5 mg/dL (7-18); BUN/Creat Ratio 4.1 RATIO (10-20); Calcium,Total 7.1 mg/dL (8.5-10.1); Chloride 103 mmol/L (98-107); Creatinine, Serum 1.21 mg/dL (0.70-1.30); EST Glomerular Filtration Rate 74 mL/min (>60); Est Glom Filt Rate - Afr Amer 90 mL/min (>60); Estimated Creatinine Clearance 91.21 ml/min; Glucose 93 mg/dL (74-106); Potassium 3.3 mmol/L (3.5-5.1); Sodium Level 133 mmol/L (136-145)
--- NOTE | 2023-06-06 07:44 | PCM.PN.HOSP ---
Reason for Visit Reason for Visit: Diagnoses Anemia, unspecified (06/03/23) Subjective Subjective Patient underwent EGD and colonoscopy today prior results are as below Objective Data Objective Data Vital Signs: Vital Signs Temp Pulse Resp BP Pulse Ox O2 Del Method 102.5 F H 112 H 18 118/61 97 Room Air 06/06/23 03:02 06/06/23 03:02 06/06/23 03:02 06/06/23 03:02 06/06/23 03:02 06/06/23 03:02 Oxygen Delivery Method Room Air Weight: 72.9 kg Body Mass Index (BMI) 21.2 Intake & Output: Intake and Output for Last 24 Hours 06/04/23 06/05/23 06/06/23 23:59 23:59 23:59 Intake Total 3950 / 3950 1128.33 / 1488.33 1531.67 / 1531.67 Balance 3950 / 3950 1128.33 / 1488.33 1531.67 / 1531.67 Lab / Micro Data 06/06/23 07:08 06/06/23 07:08 Labs: Laboratory Results - last 24 hr 06/03/23 13:42: Diff Path Review Reviewed 06/03/23 15:15: Diff Path Review Reviewed 06/03/23 21:17: Vitamin B12 827 06/05/23 04:58: Diff Path Review Reviewed 06/05/23 20:58: WBC 10.9, RBC 4.08 L, Hgb 7.8 L, Hct 28.0 L, MCV 68.6 L, MCH 19.1 L, MCHC 27.9 L, RDW Std Deviation 58.5 H, RDW Coeff of Miriam 24.9 H, Plt Count 409, MPV 7.7, Immature Gran % (Auto) 0.600, Neut % (Auto) 92.7 H, Lymph % (Auto) 1.2 L, [place] % (Auto) 5.1, Eos % (Auto) 0.2, Baso % (Auto) 0.2, Absolute Neuts (auto) 10.1 H, Absolute Lymphs (auto) 0.13 L, Nucleated RBC % 0, Differential Comment SCANNED, Sodium 137, Potassium 3.2 L, Chloride 105, Carbon Dioxide 25.0, Anion Gap 7, BUN 6 L, Creatinine 1.07, Estim Creat Clear Calc 103.14, Est GFR (MDRD) Af Amer 103, Est GFR (MDRD) Non-Af 85, BUN/Creatinine Ratio 5.6 L, Glucose 99, Calcium 7.4 L 06/06/23 07:08: WBC 6.9, RBC 3.92 L, Hgb 7.5 L, Hct 27.1 L, MCV 69.1 L, MCH 19.1 L, MCHC 27.7 L, RDW Std Deviation 60.4 H, RDW Coeff of Miriam 25.3 H, Plt Count 329, MPV 8.1, Immature Gran % (Auto) 0.700, Neut % (Auto) 91.8 H, Lymph % (Auto) 2.0 L, [place] % (Auto) 5.4, Eos % (Auto) 0.0, Baso % (Auto) 0.1, Absolute Neuts (auto) 6.3, Absolute Lymphs (auto) 0.14 L, Nucleated RBC % 0, Sodium 133 L, Potassium 3.3 L, Chloride 103, Carbon Dioxide 22.0, Anion Gap 8, BUN 5 L, Creatinine 1.21, Estim Creat Clear Calc 91.21, Est GFR (MDRD) Af Amer 90, Est GFR (MDRD) Non-Af 74, BUN/Creatinine Ratio 4.1 L, Glucose 93, Calcium 7.1 L Micro: Microbiology 06/03/23 14:12 Stool Stool Occult Blood (AURY) - Final Occult Blood Positive Radiography Diagnostic Testing: Radiology Impression Abdomen/Pelvis CT 06/05/23 13:30 IMPRESSION: Findings consistent with known Crohn''s disease with most severe acute involvement of the descending colon and anorectal segments at this time Electronically Signed: Pancho Valenzuela MD at 17:58 EDT , Physical Exam Narrative GENERAL: cooperative HEENT: Atraumatic; normocephalic EYES; Anicteric, Normal Conjunctiva NECK; supple, normal thyroid, RESPIRATORY: Diminished to auscultation CARDIOVASCULAR: Regular S1 S2, GI: soft, normoactive bowel sounds, : No Renal angle tenderness; EXTREMITIES: No edema, no clubbing, MUSCULOSKELETAL: no muscle wasting NEURO: Awake; no lateralizing signs. SKIN: No Rash PSYCH; Flat affect Assessment & Plan Assessment/Plan (1) Anemia: QUALIFIERS: Anemia type: unspecified type Qualified Code(s): D64.9 - Anemia, unspecified PLAN: Plan Patient is a 32-year-old gentleman sent today ED by the primary care physician after patient was found to be anemic following work-up for significant fatigue hemoglobin was found to be 5.9 on admission 1. Microcytic anemia ? Suspected to be secondary to chronic blood loss anemia admitted to monitored bed transfused with 2 unit PRBC, started on Protonix as well as parenteral iron with consultation placed to GI. Patient seen in consultation by Dr. Sandoval with planned upper and lower endoscopy and possibly capsule endoscopy. ? 06/06/2023 patient underwent colonoscopy as well as upper EGD results has been Colonoscopy Impressions : - Hemorrhoids found on perianal exam. - Inflammatory bowel disease. Inflammation was found in the anus, in the rectum, in the sigmoid colon, in the descending colon and in the splenic flexure. This was severe, new compared to previous examinations. Biopsied Upper GI endoscopy Impressions : - Esophageal mucosal changes consistent with eosinophilic esophagitis. Dilated. - Medium-sized hiatal hernia. 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 Biopsied. - Erythematous duodenopathy. Biopsied. -Case discussed with Dr. Sandoval with GI patient will be discharged home on prednisone 60 mg with plans for patient to follow-up with GI as outpatient 2. Depression ? Patient is on sertraline 3. Autism spectrum: Patient has Asperger's ? Complicating care. 4. DVT prophylaxis ? Chemoprophylaxis contraindicated given patient's significant anemia Time spent in the patient's overall evaluation,decision-making process, review of diagnostic data, adjustment of management, discussion with other providers, nursing nursing and ancillary staff involved in patient's care documentation, 35 minutes Charges/Coding Visit Charges Inpatient E&M: 65493 [facility] Hosp L2
[2023-06-06 07:46] LABS: Platelet Estimate ADEQUATE (ADEQ)
[2023-06-06 08:29] LABS: Erythrocyte Sedimentation Rate 18 mm/hr (0-20)
[2023-06-06] MEDS: MethylPREDNISolone 125 MG/2 ML Vial 60 MG IV (08:42)
[2023-06-06] MEDS: Pantoprazole Sodium 40 MG Tablet PO (08:42)
[2023-06-06] MEDS: Sertraline 100 MG Tablet PO (08:42)
[2023-06-06] MEDS: 0.9% Saline Lock 10 ML Syringe IV (08:43)
[2023-06-06] MEDS: Sodium Ferric Gluconat/Sucrose 250 MG in 0.9% Normal Saline (250mL Bag) 250 ML 135 MG IV (10:43)
--- NOTE | 2023-06-06 10:49 | DS.PCM_ITS ---
Providers Date of Admission: 06/03/23 Date of Discharge: 06/06/23 Primary Care Physician: Dr. Jaziel Barron, DO Consultations 06/03/23 15:40 Consult: Gastroenterology Routine Consulting Provider: Alexandr [facility] Reason for Consult: anemia EMERGENT Consult: No MD Notified: Yes Date Notified: 06/03/23 Time Notified: 15:03 Method of Notification: Text Reason For Visit: ANEMIA Diagnosis Discharge Diagnosis (1) Anemia: Status: Acute Code(s): D64.9 - Anemia, unspecified Qualifiers: Anemia type: unspecified type Qualified Code(s): D64.9 - Anemia, unspecified Plan Patient is a 32-year-old gentleman sent today ED by the primary care physician after patient was found to be anemic following work-up for significant fatigue hemoglobin was found to be 5.9 on admission 1. Microcytic anemia ? Suspected to be secondary to chronic blood loss anemia admitted to monitored bed transfused with 2 unit PRBC, started on Protonix as well as parenteral iron with consultation placed to GI. Patient seen in consultation by Dr. Sandoval with planned upper and lower endoscopy and possibly capsule endoscopy. ? 06/06/2023 patient underwent colonoscopy as well as upper EGD results has been Colonoscopy Impressions : - Hemorrhoids found on perianal exam. - Inflammatory bowel disease. Inflammation was found in the anus, in the rectum, in the sigmoid colon, in the descending colon and in the splenic flexure. This was severe, new compared to previous examinations. Biopsied Upper GI endoscopy Impressions : - Esophageal mucosal changes consistent with eosinophilic esophagitis. Dilated. - Medium-sized hiatal hernia. 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 Biopsied. - Erythematous duodenopathy. Biopsied. -Case discussed with Dr. Sandoval with GI patient will be discharged home on prednisone 60 mg with plans for patient to follow-up with GI as outpatient 2. Depression ? Patient is on sertraline 3. Autism spectrum: Patient has Asperger's ? Complicating care. 4. DVT prophylaxis ? Chemoprophylaxis contraindicated given patient's significant anemia Time spent in the patient's overall evaluation,decision-making process, review of diagnostic data, adjustment of management, discussion with other providers, nursing nursing and ancillary staff involved in patient's care documentation, 35 minutes Medications at Discharge Home Medications sertraline 100 mg tablet 100 mg PO DAILY Depression 06/03/23 polysaccharide iron complex 150 mg iron capsule (Ferric x-150) 150 mg PO DAILY #60 caps 06/06/23 prednisone 50 mg tablet 50 mg PO DAILY #60 tabs 06/06/23 Hospital Course Summary of Care Provided Minutes Spent on Discharge: 35 Physical Exam Narrative GENERAL: cooperative HEENT: Atraumatic; normocephalic EYES; Anicteric, Normal Conjunctiva NECK; supple, normal thyroid, RESPIRATORY: Diminished to auscultation CARDIOVASCULAR: Regular S1 S2, GI: soft, normoactive bowel sounds, : No Renal angle tenderness; EXTREMITIES: No edema, no clubbing, MUSCULOSKELETAL: no muscle wasting NEURO: Awake; no lateralizing signs. SKIN: No Rash PSYCH; Flat affect Weight / BMI Weight Weight: 72.9 kg Body Mass Index (BMI) 21.2 ABG / Lab / Microbiology Data 06/06/23 07:08 06/06/23 07:08 Laboratory: Laboratory Results - last 24 hr 06/03/23 13:42: Diff Path Review Reviewed 06/03/23 15:15: Diff Path Review Reviewed 06/05/23 04:58: Diff Path Review Reviewed 06/05/23 20:58: WBC 10.9, RBC 4.08 L, Hgb 7.8 L, Hct 28.0 L, MCV 68.6 L, MCH 1 9.1 L, MCHC 27.9 L, RDW Std Deviation 58.5 H, RDW Coeff of Miriam 24.9 H, Plt Count 409, MPV 7.7, Immature Gran % (Auto) 0.600, Neut % (Auto) 92.7 H, Lymph % (Auto) 1.2 L, [place] % (Auto) 5.1, Eos % (Auto) 0.2, Baso % (Auto) 0.2, Absolute Neuts (auto) 10.1 H, Absolute Lymphs (auto) 0.13 L, Nucleated RBC % 0, Differential Comment SCANNED, Sodium 137, Potassium 3.2 L, Chloride 105, Carbon Dioxide 25.0, Anion Gap 7, BUN 6 L, Creatinine 1.07, Estim Creat Clear Calc 103.14, Est GFR (MDRD) Af Amer 103, Est GFR (MDRD) Non-Af 85, BUN/Creatinine Ratio 5.6 L, Glucose 99, Calcium 7.4 L 06/06/23 07:08: WBC 6.9, RBC 3.92 L, Hgb 7.5 L, Hct 27.1 L, MCV 69.1 L, MCH 19.1 L, MCHC 27.7 L, RDW Std Deviation 60.4 H, RDW Coeff of Miriam 25.3 H, Plt Count TNP, MPV 8.1, Immature Gran % (Auto) 0.700, Neut % (Auto) 91.8 H, Lymph % (Auto) 2.0 L, [place] % (Auto) 5.4, Eos % (Auto) 0.0, Baso % (Auto) 0.1, Absolute Neuts (auto) 6.3, Absolute Lymphs (auto) 0.14 L, Nucleated RBC % 0, Platelet Estimate ADEQUATE, ESR 18, Sodium 133 L, Potassium 3.3 L, Chloride 103, Carbon Dioxide 22.0, Anion Gap 8, BUN 5 L, Creatinine 1.21, Estim Creat Clear Calc 91.21, Est GFR (MDRD) Af Amer 90, Est GFR (MDRD) Non-Af 74, BUN/Creatinine Ratio 4.1 L, Glucose 93, Calcium 7.1 L, C-React Prot Ext Range 108.00 H Microbiology: Microbiology 06/03/23 14:12 Stool Stool Occult Blood (AURY) - Final Occult Blood Positive Radiography Diagnostic Testing: Radiology Impression Abdomen/Pelvis CT 06/05/23 13:30 IMPRESSION: Findings consistent with known Crohn''s disease with most severe acute involvement of the descending colon and anorectal segments at this time Electronically Signed: Pancho Valenzuela MD at 17:58 EDT , D/C Instructions Discharge Diet: No restrictions Discharge Activity: Return to Normal Activity Call your doctor if you observe: Fever of 101 or Higher, Shortness of breath, Fainting spells and Chest pain Meaningful Use Info Meaningful Use Diagnoses (Choose all that apply): None applicable Discharge Plan Admission Admit Date/Time: 06/03/23 14:57 Attending Provider: Dank [place] Primary Care Provider: Jaziel Barron Consulting Providers: Sandro Dey Discharge Orders/Prescriptions Prescriptions: New prednisone 50 mg tablet 50 mg PO DAILY Qty: 60 0RF polysaccharide iron complex [Ferric x-150] 150 mg iron capsule 150 mg PO DAILY Qty: 60 0RF Continued sertraline 100 mg tablet 100 mg PO DAILY Referrals / Follow Up: Jaziel Barron DO [Primary Care Provider] - Within 1 Week Ephraim Sandoval DO [Med Staff - Active Staff] - Within 1 Week Disposition Disposition (needs filled in before D/C Order can be placed): Home, Self Care Charges/Coding Visit Charges Inpatient E&M: 23134 Disch Hosp >30min
[2023-06-06 12:09] LABS: Anti-Centromere B Ab <0.2 AI (0.0-0.9); Anti-Chromatin <0.2 AI (0.0-0.9); Anti-Jo <0.2 AI (0.0-0.9); Anti-Scleroderma-70 AB <0.2 AI (0.0-0.9); Anti-dsDNA Ab <1 IU/mL (0-9); RNP Ab <0.2 AI (0.0-0.9); SJOGREN'S Anti-SS-A test < 0.2 AI (0.0-0.9); SJOGREN'S Anti-SS-B test < 0.2 AI (0.0-0.9); Smith Ab <0.2 AI (0.0-0.9)
[2023-06-07 18:08] LABS: Cytoplasmic Ab (C-ANCA) <1:20 titer (Neg:<1:20); Deamidated Gliadin IgA 8 units (0-19); Deamidated Gliadin IgG 3 units (0-19); Endomysial Antibody IgA Negative (Negative); Immunoglobulin A 717 mg/dL (90-386); Immunoglobulin E 68 IU/mL (6-495); Immunoglobulin G 1164 mg/dL (603-1613); Immunoglobulin M 59 mg/dL (20-172); Perinuclear Ab (P-ANCA) <1:20 titer (Neg:<1:20); t-Transglutaminase IgA <2 U/mL (0-3)
[2023-06-08 14:09] LABS: HEPATITIS B SURFACE AG Negative (Negative); Hep C Antibodies Non Reactive (Non Reactive); Hepatitis A IgM Antibody Negative (Negative); Hepatitis B Core AB IgM Negative (Negative); QNTFERON TB Mitogen Value > 10.00 IU/mL (.); QNTFERON TB Nil Value > 10.00 IU/mL (.); QNTFERON TB1+ Ag Value > 10.00 IU/mL (.); QNTFERON TB2+ Ag Value > 10.00 IU/mL (.); QNTIFERON TB Positive Criteria Indeterminate (Negative)
== END 2023-06-06 15:48 | disposition home or self-care (01) | DRG 392 ==
LOC: ED 13:40 → PCU 15:06
PROVIDERS: Family Medicine; Hospitalist; Internal Medicine Gastroenterology; Emergency Provider Emergency Medicine; PCP Family Medicine; Visit Provider Internal Medicine
PROC: 0DJD8ZZ Inspection of Lower Intestinal Tract, Via Natural or Artificial Opening Endoscopic (ICD-10-PCS; CPT 45378; principal; 2023-06-05 12:25)
DX: K52.9 Noninfective gastroenteritis and colitis, unspecified (principal); F84.5 Asperger's syndrome; D13.1 Benign neoplasm of stomach; D50.0 Iron deficiency anemia secondary to blood loss (chronic); F32.A Depression, unspecified; K20.0 Eosinophilic esophagitis; K44.9 Diaphragmatic hernia without obstruction or gangrene; K31.89 Other diseases of stomach and duodenum; Z79.899 Other long term (current) drug therapy
CPT/HCPCS: 36415; 74177; 80048; 80053; 80074; 82274; 82607; 82728; 82746; 82784; 82785; 83516; 83540; 83550; 84443; 85014; 85018; 85025; 85610; 85652; 85730; 86140; 86225; 86235; 86255; 86256; 86480; 86850; 86900; 86901; 86920; 86922; 87040; 88305; 88312; 93005; 99284; J7030; J7040; J7050; J7120; P9016; Q9967; A4216; J2405; J2916; J3490

== ENCOUNTER → 2023-06-15 | Outpatient (CLI) | payer OTHER, SELFPAY ==
--- NOTE | 2023-06-15 15:24 | RAD_ITS ---
STUDY: X-RAY CHEST REASON FOR EXAM: Male, 32 years old. ?TB TECHNIQUE: Frontal and lateral views of the chest. COMPARISON: None. FINDINGS: There is hyperinflation of the lungs consistent with chronic obstructive lung disease (COPD). No infiltrates. No effusions. There is no demonstrated pleural abnormality. Normal size heart. Normal mediastinum and daryl. Normal visualized pulmonary arteries. Normal visualized aortic arch and descending thoracic aorta. Normal visualized thoracic spine. Normal visualized ribs, clavicles, and shoulders. There is no demonstrated abnormality of the visualized soft tissue structures of the upper abdomen. RAD/Chest PA and Lateral IMPRESSION: There are findings consistent with COPD. There is no evidence of acute chest disease. No evidence for TB. Electronically Signed: Edwin Mahan MD at 16:31 EDT ,
[2023-06-15 16:09] LABS: Absolute Lymphocyte Count 0.27 X10^3/uL (0.83-4.51); Absolute Neutrophil Count 4.4 X10^3/uL (2.0-7.7); Hematocrit 30.7 % (40-54); Hemoglobin 8.2 g/dL (13.0-16.5); Lymphocyte # 0.27 X10^3/ul (0.83-4.51); Lymphocyte % 5.5 % (19-41); Mean Corp Hgb Conc 26.7 g/dL (32-36); Mean Corpuscular Hgb 20.3 pg (27.0-32.0); Mean Corpuscular Volume 76.2 fL (80-94); Mean Platelet Vol. 8.7 fl (6.2-12.0); Monocyte% 4.1 % (0-10); NRBC Flagged by Analyzer 0 % (0-5); Neutrophil # 4.39 X10^3/uL (2.7-7.7); Neutrophil % 89.8 % (47-70); POSITIVE DIFFERENTIAL YES; POSITIVE MORPHOLOGY YES; Platelet Count 500 K/mm3 (150-450); RBC Distribution Width CV 31.2 % (11.6-14.6); RBC Distribution Width SD 79.3 fl (35.1-43.9); Red Blood Count 4.03 M/mm3 (4.6-6.2); White Blood Count 4.9 K/mm3 (4.4-11.0)
[2023-06-15 16:19] LABS: Prothrombin Time (Protime)PT. 13.4 SECONDS (11.7-14.9)
[2023-06-15 16:34] LABS: Differential Indicated SCAN CRITERIA MET
[2023-06-15 16:35] LABS: Anisocytosis 1+; Hypochromasia 1+; Microcytosis 1+; Ovalocyte RARE; Platelet Estimate MOD INC (ADEQ); Polychromasia RARE; Red Cell Morphology N CHROM NORMAL (NORM C&C)
[2023-06-15 16:43] LABS: Erythrocyte Sedimentation Rate 34 mm/hr (0-20)
[2023-06-15 16:52] LABS: ALB/GLOB Ratio 0.5 RATIO (0.9-2.4); AST(SGOT) 17 U/L (15-37); Alanine Aminotransfer ALT/SGPT 42 U/L (16-61); Albumin, Serum 2.1 g/dL (3.2-5.0); Alkaline Phosphatase 90 U/L (45-117); Anion Gap 4 (5-15); BUN 15 mg/dL (7-18); BUN/Creat Ratio 15.4 RATIO (10-20); CRP 5.18 mg/L (0.0-3.0); Calcium,Total 7.7 mg/dL (8.5-10.1); Chloride 106 mmol/L (98-107); Creatinine, Serum 0.98 mg/dL (0.70-1.30); EST Glomerular Filtration Rate 95 mL/min (>60); Est Glom Filt Rate - Afr Amer 115 mL/min (>60); Ferritin 91 ng/mL (26-388); Globulin 4.1 g/dL (2.2-4.2); Glucose 163 mg/dL (74-106); LDH 170 U/L (87-241); Potassium 3.9 mmol/L (3.5-5.1); Protein, Total 6.2 g/dL (6.4-8.2); Sodium Level 138 mmol/L (136-145)
[2023-06-15 17:16] LABS: HIV - WCH Non-Reactive (Nonreactive)
[2023-06-15 17:30] LABS: Hemoglobin A1c 4.8 % (3.8-5.6)
[2023-06-19 13:07] LABS: Anti-Centromere B Ab <0.2 AI (0.0-0.9); Anti-Chromatin <0.2 AI (0.0-0.9); Anti-Jo <0.2 AI (0.0-0.9); Anti-Mitochondrial AB <20.0 Units (0.0-20.0); Anti-Scleroderma-70 AB <0.2 AI (0.0-0.9); Anti-dsDNA Ab <1 IU/mL (0-9); RNP Ab <0.2 AI (0.0-0.9); SJOGREN'S Anti-SS-A test < 0.2 AI (0.0-0.9); SJOGREN'S Anti-SS-B test < 0.2 AI (0.0-0.9); Smith Ab <0.2 AI (0.0-0.9)
[2023-06-26 04:07] LABS: AFP, Tumor Marker 4.1 ng/mL (0.0-6.9); Angiotensin Convert Enzyme 38 U/L (14-82); Anti-Smooth Muscle ABS 14 Units (0-19); Ceruloplasmin 20.2 mg/dL (16.0-31.0); Copper, Serum or Plasma 92 ug/dL (69-132); Haptoglobin 237 mg/dL (17-317); QNTFERON TB Mitogen Value 1.81 IU/mL (.); QNTFERON TB Nil Value 0.01 IU/mL (.); QNTFERON TB1+ Ag Value 0.02 IU/mL (.); QNTFERON TB2+ Ag Value 0.02 IU/mL (.); QNTIFERON TB Positive Criteria Negative (Negative)
== END | disposition home or self-care (01) ==
LOC: RAD 15:21
PROVIDERS: PCP Family Medicine; Referring Provider Internal Medicine Gastroenterology; Visit Provider Internal Medicine Gastroenterology
DX: K50.90 Crohn's disease, unspecified, without complications (principal)
CPT/HCPCS: 36415; 71046; 80053; 82105; 82140; 82164; 82390; 82525; 82728; 83010; 83036; 83516; 83615; 85025; 85610; 85652; 86140; 86225; 86235; 86480; 86703

== ENCOUNTER → 2023-06-22 | Outpatient (CLI) | payer OTHER, SELFPAY ==
--- NOTE | 2023-06-22 09:19 | US_ITS ---
STUDY: ABDOMINAL ULTRASOUND - RIGHT UPPER QUADRANT; ELASTOGRAPHY REASON FOR VISIT: Male, 32 years old. Fatty infiltration of the liver. TECHNIQUE: Ultrasound evaluation of the right upper quadrant was performed with real-time and static mart-scale imaging. Point quantification shear wave elastography was performed (Neiron). TECHNICAL QUALITY: Adequate. COMPARISON: Comparison is made with prior CT scan of the abdomen and pelvis dated June 05, 2023. FINDINGS: Liver: The liver measures 17.3 cm. There is a mild degree of increased echogenicity consistent with mild degree of fatty infiltration. The bile ducts are within normal limits. There is hepatic color flow. The direction of portal flow is hepatopetal. There is no demonstrated mass lesion. Median liver stiffness measured 6.6 kPa. Gallbladder: Normal distended gallbladder. The gallbladder wall measures 1.6 mm. There is a negative sonographic Magallanes''s sign. There is no pericholecystic fluid. There are no gallstones. Common Bile Duct (C.B.D.): The common bile duct measures 3.1 mm. Pancreas: Nonvisualization of the pancreas due to overlying bowel gas. Right Kidney: Normal size of the right kidney. The right kidney measures 10 x 5 cm x 5.5 cm. Normal renal cortex. The right cortex measures 1 cm. There is no demonstrated renal mass or cyst. There is no right hydronephrosis. US/ABD Limited w/ Elastography IMPRESSION: 1. Liver stiffness measures 6.6 kPa compatible with F2-F3 (Mild to moderate liver fibrosis) Metavir score. Electronically Signed: Gabe Miranda MD at 15:03 EDT ,
== END | disposition home or self-care (01) ==
PROVIDERS: PCP Family Medicine; Referring Provider Internal Medicine Gastroenterology; Visit Provider Internal Medicine Gastroenterology
DX: K76.0 Fatty (change of) liver, not elsewhere classified (principal)
CPT/HCPCS: 76705; 76981

== ENCOUNTER → 2023-07-03 | Outpatient (CLI) | payer OTHER, SELFPAY ==
--- NOTE | 2023-07-03 11:36 | MRI_ITS ---
MR Enterography Abdomen/Pelvis WO/W Contrast 07/03/2023 1:15 PM COMPARISON: CT 06/22/2023 CLINICAL HISTORY: K50.90 - Crohn''s disease, unspecified, without complications TECHNIQUE: Following oral administration of enteric contrast and administration of glucagon, multiplanar T1 and T2 weighted images along with dynamic post-gadolinium images were obtained through the abdomen and pelvis. IV Gadolinium was used. FINDINGS: GI Tract: The stomach is normal. Multiple short loops of proximal small bowel demonstrate mild circumferential wall thickening with mucosal hyperenhancement. There is also mild circumferential wall thickening and mucosal hyperenhancement of the terminal ileum. There is moderate to severe irregular wall thickening of the transverse colon, descending colon, sigmoid colon and rectum with mucosal hyperenhancement. No stricture, fistula, or obstruction. No drainable fluid collections. Liver: Unremarkable Gallbladder: Unremarkable Spleen: Unremarkable Pancreas: Unremarkable Adrenal Glands: Unremarkable Kidneys: Unremarkable Bladder: Unremarkable Reproductive: Unremarkable Lymphadenopathy: Absent Ascites: Absent Bones: No suspicious lesions MRI/Enterography Abd/Pel IMPRESSION: Findings consistent with acute flare of Crohn''s disease. No stricture, fistula, or obstruction. No drainable fluid collections. Electronically Signed: Jun Mcleod MD at 22:29 EDT ,
[2023-07-03 12:32] VITALS: BP 122/69; PULSE 68; RESP 18; TEMP 36.6; O2SAT 100; BMI 23.7
[2023-07-03] MEDS: 0.9% Saline Lock 10 ML Syringe IV (13:38)
[2023-07-03] MEDS: Glucagon 1 MG/ML Syringe IV (13:40)
[2023-07-03 13:51] VITALS: BP 133/71; PULSE 85; RESP 16; O2SAT 100
== END | disposition home or self-care (01) ==
PROVIDERS: PCP Family Medicine; Referring Provider Internal Medicine Gastroenterology; Visit Provider Internal Medicine Gastroenterology
DX: K50.90 Crohn's disease, unspecified, without complications (principal)
CPT/HCPCS: 74183; 96374; A9575; A4216; J1610

== ENCOUNTER → 2023-07-21 | Outpatient (CLI) | payer OTHER, SELFPAY ==
[2023-07-21 12:15] LABS: Hematocrit 30.2 % (40-54); Hemoglobin 8.2 g/dL (13.0-16.5)
== END | disposition home or self-care (01) ==
LOC: LAB 11:26
PROVIDERS: PCP Family Medicine; Visit Provider Internal Medicine Gastroenterology
DX: D64.9 Anemia, unspecified (principal)
CPT/HCPCS: 36415; 85014; 85018

== ENCOUNTER 2023-08-16 11:14 | Outpatient (CLI) | payer OTHER, SELFPAY ==
[2023-08-16 11:24] VITALS: BP 118/60; PULSE 80; RESP 16; TEMP 35.9; BMI 23.7
[2023-08-16] MEDS: 0.9% NaCl IVPB Med Flush (250 mL) 15 ML IV (11:46)
[2023-08-16] MEDS: Ustekinumab 390 MG in 0.9% Normal Saline (250mL Bag) 172 ML 250 MG IV (11:46)
[2023-08-16] MEDS: 0.9% NaCl Peripheral Flush Adult/Peds IV (11:46)
[2023-08-16 13:10] VITALS: BP 113/56; PULSE 76; RESP 16; TEMP 36.1
== END 2023-08-16 11:15 | disposition home or self-care (01) ==
LOC: MEDOUTP 11:15
PROVIDERS: PCP Family Medicine; Referring Provider Internal Medicine Gastroenterology; Visit Provider Internal Medicine Gastroenterology
DX: K50.90 Crohn's disease, unspecified, without complications (principal)
CPT/HCPCS: 96365; J7050; A4216; J3358

== ENCOUNTER → 2023-11-30 | Outpatient (CLI) | payer OTHER, SELFPAY ==
[2023-11-30 12:53] LABS: Absolute Lymphocyte Count 0.66 X10^3/uL (0.83-4.51); Absolute Neutrophil Count 4.4 X10^3/uL (2.0-7.7); Basophil# 0.03 X10^3/uL; Basophil% 0.5 % (0-1); Eosinophil# 0.18 X10^3/uL; Eosinophils% 3.1 % (0-5); Hematocrit 43.5 % (40-54); Lymphocyte # 0.66 X10^3/ul (0.83-4.51); Lymphocyte % 11.3 % (19-41); Mean Corp Hgb Conc 29.9 g/dL (32-36); Mean Corpuscular Hgb 23.6 pg (27.0-32.0); Mean Corpuscular Volume 78.9 fL (80-94); Mean Platelet Vol. 9.4 fl (6.2-12.0); Monocyte# 0.59 X10^3/uL; Monocyte% 10.1 % (0-10); NRBC Flagged by Analyzer 0 % (0-5); Neutrophil # 4.37 X10^3/uL (2.7-7.7); Neutrophil % 74.7 % (47-70); Platelet Count 361 K/mm3 (150-450); RBC Distribution Width CV 14.5 % (11.6-14.6); RBC Distribution Width SD 41.1 fl (35.1-43.9); RET-HE 27.3 pg (30-35); Red Blood Count 5.51 M/mm3 (4.6-6.2); Reticulocyte Count 1.02 % (0.5-1.5); White Blood Count 5.9 K/mm3 (4.4-11.0)
[2023-11-30 13:02] LABS: Erythrocyte Sedimentation Rate 46 mm/hr (0-20)
[2023-11-30 14:20] LABS: ALB/GLOB Ratio 0.7 RATIO (0.9-2.4); AST(SGOT) 21 U/L (15-37); Alanine Aminotransfer ALT/SGPT 20 U/L (16-61); Albumin, Serum 3.3 g/dL (3.2-5.0); Alkaline Phosphatase 108 U/L (45-117); Anion Gap 7 (5-15); BUN 16 mg/dL (7-18); BUN/Creat Ratio 16.5 RATIO (10-20); Calcium,Total 8.7 mg/dL (8.5-10.1); Chloride 104 mmol/L (98-107); Creatinine, Serum 0.97 mg/dL (0.70-1.30); EST Glomerular Filtration Rate 96 mL/min (>60); Est Glom Filt Rate - Afr Amer 116 mL/min (>60); Ferritin 17 ng/mL (26-388); Globulin 4.7 g/dL (2.2-4.2); Glucose 90 mg/dL (74-106); Iron 45 ug/dL (65-175); Iron Binding Capacity,Total 359 ug/dL (250-450); LDH 158 U/L (87-241); Sodium Level 137 mmol/L (136-145)
[2023-12-01 15:08] LABS: Albumin 3.6 g/dL (2.9-4.4); Alpha-1-Globulins 0.3 g/dL (0.0-0.4); Gamma Globulin 1.3 g/dL (0.4-1.8); Haptoglobin 237 mg/dL (17-317); Immunoglobulin A 531 mg/dL (90-386); Immunoglobulin G 1310 mg/dL (603-1613); Immunoglobulin M 102 mg/dL (20-172); PROEL- TOTAL PROTEIN 7.4 g/dL (6.0-8.5)
[2023-12-05 19:07] LABS: Calprotectin, Stool 4920 ug/g (0-120)
== END | disposition home or self-care (01) ==
PROVIDERS: PCP Family Medicine; Referring Provider Internal Medicine Gastroenterology; Visit Provider Internal Medicine Gastroenterology
DX: K50.90 Crohn's disease, unspecified, without complications (principal)
CPT/HCPCS: 36415; 80053; 82728; 82784; 83010; 83540; 83550; 83615; 83630; 83993; 84165; 85025; 85045; 85652; 86140; 86334

== ENCOUNTER → 2024-01-29 | Outpatient (CLI) | payer OTHER, SELFPAY ==
[2024-01-29 16:11] LABS: Erythrocyte Sedimentation Rate 60 mm/hr (0-20)
== END | disposition home or self-care (01) ==
PROVIDERS: PCP Family Medicine; Referring Provider Internal Medicine Gastroenterology; Visit Provider Internal Medicine Gastroenterology
DX: K58.9 Irritable bowel syndrome, unspecified (principal)
CPT/HCPCS: 36415; 83630; 83993; 85652; 86140

== ENCOUNTER → 2024-04-18 | Outpatient (CLI) | payer OTHER, SELFPAY ==
[2024-04-18 11:09] LABS: Erythrocyte Sedimentation Rate 9 mm/hr (0-20)
[2024-04-18 11:33] LABS: CRP < 2.90 mg/L (0.0-3.0)
[2024-04-23 21:07] LABS: Calprotectin, Stool 1540 ug/g (0-120)
== END | disposition home or self-care (01) ==
PROVIDERS: PCP Family Medicine; Referring Provider Internal Medicine Gastroenterology; Visit Provider Internal Medicine Gastroenterology
DX: K50.90 Crohn's disease, unspecified, without complications (principal)
CPT/HCPCS: 36415; 83993; 85652; 86140

== ENCOUNTER → 2024-07-10 | Outpatient (CLI) | payer OTHER, SELFPAY ==
[2024-07-10 12:10] LABS: Erythrocyte Sedimentation Rate 15 mm/hr (0-20)
--- OUTSIDE RECORDS SUMMARY | 2024-07-10 12:14 | XMS RPT_ITS | CCD ---
Demographics Address [address] [place] [address] Preferred Language en Marital Status Single Jewish Affiliation Unknown Race White Ethnic Group Not or Lati no Author Organization [facility] Care Team Providers Care Apartment Maintenance Name Role Phone Dennis Urena Unavailable Unavailable Unavailable Dr. Dennis Urena Referring Unavail able Dr. Dennis Urena Primary Care Unavail able Rafita Kelly Attending Unavailable JUAN DANIEL BURGESS Attending MARCIO Ramirez Primary Care Unavailable Marcio Barron DO Primary Care Provider [phone] RAFITA KELLY Attending Unavailable MARCIO BARRON Primary Care Unavailable Medications Current Medications Medication Drug Class(es) Dates Sig (Normalized) Sig (Original) sertraline 100 mg oral tablet (5 sources) Serotonin Reuptake Inhibitor Start: 06-05-2014 End: 11-08-2024 take 1 tablet by mouth once daily sertraline (Zoloft) 100 mg tablet Indications: Anxiety disorder, unspecified type Take 1 tablet (100 mg) by mouth once daily. 30 tablet 11 11/09/2023 11/08/2024 Active 1 ml ustekinumab 90 mg/ml prefilled syringe (1 source) Interleukin-12 Antagonist, Interleukin-23 Antagonist Start: 10-24-2023 Stelara injection Problems Active Problems Problem Classification Problem Date Documented Da te Episodic/Chronic Anxiety disorders (7 sources) Anxiety disorder; Translations: [Anxiety state, unspecified] Onset: 11-09-2023 11-09-2023 Chronic Comment on above: Added by Problem Lis t Migration; 2013-09-17; Deficiency and other anemia (2 sources) Anemia, unspecified; Translations: [Anemia, unspecified] Onset: 06-13-2023 Episodic Disorders usually diagnosed in infancy, childhood, or adolescence (4 sources) Autism spectrum disorder; Translations: [Autistic disorder, current or active state] Onset: 11-09-2023 11-09-2023 Chronic Malaise and fatigue (2 sources) Other fatigue; Translations: [Other fatigue] Onset: 06-13-2023 Episodic Regional enteritis and ulcerative colitis (1 source) Crohn's disease; Translations: [Crohn's disease, unspecified, without complications] Onset: 11-09-2023 11-09-2023 Chronic Past or Other Problems Problem Classification Problem Date Documented Da te Episodic/Chronic Unclassified (1 source) Onset: 11-09-2023 11-09-2023 Results Test Name Value Interpretation Reference Range Facility .Auto Diffon 06-13-2023 Basophil, Absolute 0.0 10 3/mcL Normal 0.0-0.2 [facility] ([place] Comment on above: Performed By: #### A DIFF, FE, ANEU, MORPH, GFR, CMP, CBC, FERR #### [address] [address] Basophils/100 WBC (Bld) 0.4 % Normal 0.0-2.5 [facility] ([place]) Comment on above: Performed By: #### A DIFF, FE, ANEU, MORPH, GFR, CMP, CBC, FERR #### [address] [address] Eosinophil, Absolute 0.0 10 3/mcL Normal 0.0-0.4 [facility] ([place] Comment on above: Performed By: #### A DIFF, FE, ANEU, MORPH, GFR, CMP, CBC, FERR #### [address] [address] Eosinophils/100 WBC (Bld) 0.0 % Normal 0.0-7.0 [facility] ([place] Comment on above: Performed By: #### A DIFF, FE, ANEU, MORPH, GFR, CMP, CBC, FERR #### [address] [address] Lymphocyte, Absolute 0.2 10 3/mcL Low 0.8-3.9 [facility] ([place] Comment on above: Performed By: #### A DIFF, FE, ANEU, MORPH, GFR, CMP, CBC, FERR #### [address] [address] Lymphocytes/100 WBC (Bld) 3.5 % Low 10.0-50.0 [facility] ([place] Comment on above: Performed By: #### A DIFF, FE, ANEU, MORPH, GFR, CMP, CBC, FERR #### [address] [address] Monocyte, Absolute 0.1 10 3/mcL Low 0.2-1.0 [facility] ([place] Comment on above: Performed By: #### A DIFF, FE, ANEU, MORPH, GFR, CMP, CBC, FERR #### [address] [address] Monocytes/100 WBC (Bld) 1.3 % Low 1.7-13.0 [facility] ([place] Comment on above: Performed By: #### A DIFF, FE, ANEU, MORPH, GFR, CMP, CBC, FERR #### [address] [address] Neutrophils/100 WBC (Bld) 94.8 % High 37.0-80.0 [facility] ([place] Comment on above: Performed By: #### A DIFF, FE, ANEU, MORPH, GFR, CMP, CBC, FERR #### [address] [address] .GFRon 06-13-2023 GFR 126 ml/min/1.73sqm Normal [facility] ([place]) Comment on above: Result Comment: GFR Population mean for , Non- Americans Ages 20-29 = 116 mL/min/1.73 sq.m. Ages 30-39 = 107 mL/min/1.73 sq.m. Ages 40-49 = 99 mL/min/1.73 sq.m. Ages 50-59 = 93 mL/min/1.73 sq.m. Ages 60-69 = 85 mL/min/1.73 sq.m. Ages 70+ = 75 mL/min/1.73 sq.m. Chronic Kidney Disease: Less than 60 mL/min/1.73 square meters End Stage Renal Disease: Less than 15 mL/min/1.73 square meters Performed By: #### A DIFF, FE, ANEU, MORPH, GFR, CMP, CBC, FERR #### [address] [address] GFR Non- 104 ml/min/1.73sqm Normal [facility] ([place]) Comment on above: Result Comment: GFR Population mean for , Non- Americans Ages 20-29 = 116 mL/min/1.73 sq.m. Ages 30-39 = 107 mL/min/1.73 sq.m. Ages 40-49 = 99 mL/min/1.73 sq.m. Ages 50-59 = 93 mL/min/1.73 sq.m. Ages 60-69 = 85 mL/min/1.73 sq.m. Ages 70+ = 75 mL/min/1.73 sq.m. Chronic Kidney Disease: Less than 60 mL/min/1.73 square meters End Stage Renal Disease: Less than 15 mL/min/1.73 square meters Performed By: #### A DIFF, FE, ANEU, MORPH, GFR, CMP, CBC, FERR #### [address] [address] .Morphon 06-13-2023 Anisocytosis Ql (Bld) 1+ Normal [facility] ([place]) Comment on above: Performed By: #### A DIFF, FE, ANEU, MORPH, GFR, CMP, CBC, FERR #### [address] [address] Microcytosis 2+ Normal [facility] ([place]) Comment on above: Performed By: #### A DIFF, FE, ANEU, MORPH, GFR, CMP, CBC, FERR #### [address] [address] Ovalocytes 1+ Normal [facility] ([place] Comment on above: Performed By: #### A DIFF, FE, ANEU, MORPH, GFR, CMP, CBC, FERR #### [address] [address] Platelet Estimate Normal Normal [facility] ([place] Comment on above: Performed By: #### A DIFF, FE, ANEU, MORPH, GFR, CMP, CBC, FERR #### [address] [address] Poik 1+ Normal [facility] ([place] Comment on above: Performed By: #### A DIFF, FE, ANEU, MORPH, GFR, CMP, CBC, FERR #### [address] [address] RBC morphology finding Nom (Bld) See Below Normal [facility] ([place] Comment on above: Performed By: #### A DIFF, FE, ANEU, MORPH, GFR, CMP, CBC, FERR #### [place] [address] .NEUABSon 06-13-2023 Neutrophil, Absolute 5.8 10 3/mcL Normal 2.9-6.2 [facility] ([place] Comment on above: Performed By: #### A DIFF, FE, ANEU, MORPH, GFR, CMP, CBC, FERR #### [place] [address] CBCon 06-13-2023 Erythrocyte distribution width (RBC) [Ratio] 33.3 % High 11.5-14.5 [facility] ([place] Comment on above: Performed By: #### A DIFF, FE, ANEU, MORPH, GFR, CMP, CBC, FERR #### [place] [address] Hematocrit (Bld) [Volume fraction] 28.4 % Low 42.0-52.0 [facility] ([place] Comment on above: Performed By: #### A DIFF, FE, ANEU, MORPH, GFR, CMP, CBC, FERR #### [place] [address] Hgb 8.6 G/dL Low 14.0-18.0 [facility] ([place] Comment on above: Performed By: #### A DIFF, FE, ANEU, MORPH, GFR, CMP, CBC, FERR #### [address] [address] MCH (RBC) [Entitic mass] 20.9 pg Low 27.0-31.2 [facility] ([place] Comment on above: Performed By: #### A DIFF, FE, ANEU, MORPH, GFR, CMP, CBC, FERR #### [address] [address] MCHC 30.4 G/dL Low 31.8-35.4 [facility] ([place] Comment on above: Performed By: #### A DIFF, FE, ANEU, MORPH, GFR, CMP, CBC, FERR #### [address] [address] MCV (RBC) [Entitic vol] 68.7 fL Low 80.0-94.0 [facility] ([place] Comment on above: Performed By: #### A DIFF, FE, ANEU, MORPH, GFR, CMP, CBC, FERR #### [place] [address] Platelet 498 10 3/mcL High 130-400 [facility] ([place] Comment on above: Performed By: #### A DIFF, FE, ANEU, MORPH, GFR, CMP, CBC, FERR #### [place] [address] Platelet mean volume (Bld) [Entitic vol] 6.5 fL Low 7.4-10.4 [facility] ([place] Comment on above: Performed By: #### A DIFF, FE, ANEU, MORPH, GFR, CMP, CBC, FERR #### [place] [id number] RBC 4.13 10 6/mcL Normal 4.04-6.13 [facility] ([place]) Comment on above: Performed By: #### A DIFF, FE, ANEU, MORPH, GFR, CMP, CBC, FERR #### [place] [id number] WBC 6.1 10 3/mcL Normal 4.6-10.8 [facility] ([place] Comment on above: Performed By: #### A DIFF, FE, ANEU, MORPH, GFR, CMP, CBC, FERR #### [place] [address] CMPon 06-13-2023 Albumin Level 2.0 G/dL Low 3.5-5.0 [facility] ([place] Comment on above: Performed By: #### A DIFF, FE, ANEU, MORPH, GFR, CMP, CBC, FERR #### [address] [address] Albumin/Globulin [Mass ratio] 0.5 {ratio} Low 1.1-2.5 [facility] ([place] Comment on above: Performed By: #### A DIFF, FE, ANEU, MORPH, GFR, CMP, CBC, FERR #### [address] [address] ALP [Catalytic activity/Vol] 93 U/L Normal 40-135 [facility] ([place] Comment on above: Performed By: #### A DIFF, FE, ANEU, MORPH, GFR, CMP, CBC, FERR #### [address] [address] ALT [Catalytic activity/Vol] 45 U/L Normal 16-63 [facility] ([place] Comment on above: Performed By: #### A DIFF, FE, ANEU, MORPH, GFR, CMP, CBC, FERR #### [address] [address] AST [Catalytic activity/Vol] 22 U/L Normal 10-40 [facility] ([place] Comment on above: Performed By: #### A DIFF, FE, ANEU, MORPH, GFR, CMP, CBC, FERR #### [address] [address] Bili Total 0.1 mg/dL Low 0.2-1.0 [facility] ([place] Comment on above: Result Comment: Use of this assay is not recommended for patients undergoing treatment with eltrombopag due to the potential for falsely elevated results. Performed By: #### A DIFF, FE, ANEU, MORPH, GFR, CMP, CBC, FERR #### [address] [address] BUN/Creatinine Ratio 15 ratio Normal 7-27 [facility] ([place] Comment on above: Performed By: #### A DIFF, FE, ANEU, MORPH, GFR, CMP, CBC, FERR #### [address] [address] Calcium [Mass/Vol] 7.5 mg/dL Low 8.4-10.2 [facility] ([place] Comment on above: Performed By: #### A DIFF, FE, ANEU, MORPH, GFR, CMP, CBC, FERR #### [place] [address] Chloride [Moles/Vol] 104 mmol/L Normal 98-107 [facility] ([place] Comment on above: Performed By: #### A DIFF, FE, ANEU, MORPH, GFR, CMP, CBC, FERR #### [place] [address] CO2 [Moles/Vol] 30 mmol/L High 22-29 [facility] ([place] Comment on above: Performed By: #### A DIFF, FE, ANEU, MORPH, GFR, CMP, CBC, FERR #### [place] [address] Creatinine [Mass/Vol] 0.86 mg/dL Normal 0.70-1.30 [facility] ([place] Comment on above: Performed By: #### A DIFF, FE, ANEU, MORPH, GFR, CMP, CBC, FERR #### [address] [address] Electrolyte Balance 7.0 mEq/L Normal 4.0-15.0 [facility] ([place] Comment on above: Performed By: #### A DIFF, FE, ANEU, MORPH, GFR, CMP, CBC, FERR #### [address] [address] Globulin 3.9 G/dL Normal [facility] ([place] Comment on above: Performed By: #### A DIFF, FE, ANEU, MORPH, GFR, CMP, CBC, FERR #### [address] [address] Glucose [Mass/Vol] 147 mg/dL High 70-105 [facility] ([place] Comment on above: Performed By: #### A DIFF, FE, ANEU, MORPH, GFR, CMP, CBC, FERR #### [address] [address] Potassium [Moles/Vol] 3.8 mmol/L Normal 3.5-5.1 [facility] ([place]) Comment on above: Performed By: #### A DIFF, FE, ANEU, MORPH, GFR, CMP, CBC, FERR #### [address] [address] Sodium [Moles/Vol] 141 mmol/L Normal 136-145 [facility] ([place] Comment on above: Performed By: #### A DIFF, FE, ANEU, MORPH, GFR, CMP, CBC, FERR #### [place] [address] Total Protein 5.9 G/dL Low 6.4-8.2 [facility] ([place]) Comment on above: Performed By: #### A DIFF, FE, ANEU, MORPH, GFR, CMP, CBC, FERR #### [address] [address] Urea nitrogen [Mass/Vol] 13 mg/dL Normal 7-18 [facility] ([place] Comment on above: Performed By: #### A DIFF, FE, ANEU, MORPH, GFR, CMP, CBC, FERR #### [address] [address] FEon 06-13-2023 Iron [Mass/Vol] 16 ug/dL Low 65-175 [facility] ([place] Comment on above: Performed By: #### A DIFF, FE, ANEU, MORPH, GFR, CMP, CBC, FERR #### [place] [address] Lázaro 06-13-2023 Ferritin [Mass/Vol] 161.0 ng/mL Normal 26.0-388.0 [facility] ([place] Comment on above: Performed By: #### A DIFF, FE, ANEU, MORPH, GFR, CMP, CBC, FERR #### [place] [address] Office Visit (Pediatric Neur ology)on 11-11-2022 Follow-up visit Diagnoses/Problems Anxiety disorder (300.00) (F41.9) Added by Problem List Migration; 2013-09-17 Autism spectrum disorder (299.00) (F84.0) Orders Anxiety disorder Renew: Sertraline HCl - 100 MG Oral Tablet; TAKE 1 TABLET BY MOUTH DAILY Patient Discussion/Summary Herbie is doing OK. Anxiety is reasonably controlled. He wants to have some employment. 1. No change in sertraline dose. A prescription renewal with 11 refills was sent. Dose can be increased if needed. 2. Check on services through [facility]. 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 4. Follow up will be in 1 year. Chief Complaint An interactive audio and video telecommunication system which permits real time communications between the patient (at the originating site) and provider (at the distant site) was utilized to provide this telehealth service. Verbal consent was requested and obtained for minor from Mother (parent/guardian) on this date, 11/11/2022 10:00 AM , for a telehealth visit. FU Accompanied by mother. History of Present Illness This visit was completed via [employer] due to the restrictions of the COVID-19 pandemic. All issues as below were discussed and addressed but no physical exam was performed. If it was felt that the patient should be evaluated in clinic then they were directed there. The patient's mother verbally consented to the visit. Herbie is a 31 year old man with ASD and anxiety. He is doing well on sertraline 100 mg daily. Mood is usually good. 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 He volunteers once weekly. He has a woodworking hobby. He goes with his brother to [employer] activities. He is sleeping and eating adequately (sleeps till noon and is awake most of the night). He is living in an apartment attached to his sister's home (they bought it from his parents). He interacts with his nieces. Review of Systems All other systems have been reviewed and are negative for pertinent complaint. Active Problems Anxiety disorder (300.00) (F41.9) Added by Problem List Migration; 2013-09-17 Autism spectrum disorder (299.00) (F84.0) Family History No pertinent family history No pertinent family history Social History Never smoker No alcohol use No tobacco/smoke exposure Allergies No Known Drug Allergies Recorded By: Chantal Cook; 06/05/2014 3:16:31 PM Current Meds Medication NameInstruction Sertraline HCl - 100 MG Oral TabletTAKE 1 TABLET BY MOUTH DAILY Physical Exam Awake, alert - acts quiet and shy Sits next to mother Signatures Electronically signed by : Rafita Kelly MD; Nov 11 2022 10:54AM EST (Author) Normal [facility] Vital Signs Date Time Vital Sign Value Performing Clinician Facility 11-09-2023 13:51-0500 Body height 184.5 cm Rafita Kelly MD Work Phone: [facility] 11-09-2023 13:51-0500 Body mass index (BMI) [Ratio] 28.38 kg/m2 Rafita Kelly MD Work Phone: [facility] 11-09-2023 13:51-0500 Body temperature 97.5 [degF] Rafita Kelly MD Work Phone: [facility] 11-09-2023 13:51-0500 Body weight 96.6 kg Rafita Kelly MD Work Phone: [facility] 11-09-2023 13:51-0500 Diastolic blood pressure 70 mm[Hg] Rafita Kelly MD Work Phone: [facility] 11-09-2023 13:51-0500 Heart rate 86 /min Rafita Kelly MD Work Phone: [facility] 11-09-2023 13:51-0500 Systolic blood pressure 110 mm[Hg] Rafita Kelly MD Work Phone: [facility] 11-11-2021 14:19-0500 Body height 184 cm Dennis Urena Work Phone: [facility]Ldvzzamcfp-Avxac a 220 Work Phone: 11-11-2021 14:19-0500 Body mass index (BMI) [Ratio] 21.08 kg/m2 Dennis Urena Work Phone: RK[facility]Gyqohvpoxn-Dxbjq a 220 Work Phone: 11-11-2021 14:19-0500 Body surface area Derived from formula 1.93 m2 Dennis Urena Work Phone: KP-Xzvfnotqph-Iawre a 220 Work Phone: 11-11-2021 14:19-0500 Body temperature 97.7 [degF] Dennis Urena Work Phone: WL-Jtbouwcrez-Fsfym a 220 Work Phone: 11-11-2021 14:19-0500 Body weight 71.39 kg Dennis Urena Work Phone: WW-Volrhvvnuq-Qyvjv a 220 Work Phone: 11-11-2021 14:19-0500 Diastolic blood pressure 70 mm[Hg] Dennis Urena Work Phone: LR-Vfbzhwturc-Ptmiw a 220 Work Phone: 11-11-2021 14:19-0500 Heart rate 100 /min Dennis Urena Work Phone: AT-Zyxcflsbab-Gxwbc a 220 Work Phone: 11-11-2021 14:19-0500 Systolic blood pressure 112 mm[Hg] Dennis Urena Work Phone: HJ-Dgdacztyvd-Ibtdw a 220 Work Phone: Encounters Encounter Date Encounter Type Care Provider Facility Start: 11-09-2023 End: 11-09-[address] [facility] Start: 11-09-2023 End: 11-09-2023 Office outpatient visit 15 minutes Rafita Kelly MD Work Phone: [facility] Comment on above: Anxiety disorder, un specified type (Primary Dx) Start: 06-13-2023 End: 06-18-2023 ambulatory JUAN DANIEL JORDAN [employer] DELIVERY SPECIALIST-[employer]ER [employer]NER Facility:B Start: 06-13-2023 End: 06-18-2023 Encounter for general adult medical examination without abnormal findings JUAN DANIEL Hayes JULIAN [employer] DELIVERY SPECIALIST-SLUBBER RUNNER Facility:B Start: 11-11-[address] Dennis Urena Facility:[id number] Start: 11-11-2022 Office outpatient vi sit 15 minutes Dennis Urena Work Phone: RU-Shgvlmjyoc-Kcxhxiwq ook 220 Work Phone: Start: 11-11-2021 Office outpatient vi sit 15 minutes Dennis Urena Work Phone: ID-Rxchntvivs-Jveojzpu y-Admin RBC 585 Work Phone: Start: 11-11-2021 Patient encounter procedure Dennis Urena Work Phone: AF-Honbibyadv-Ldysdf 220 Work Phone: Plan of Treatment Date Care Activity Detail Author Start: 12-04-2041 Zoster Vaccines (1 of 2) Zoste r Vaccines (1 of 2) [facility] Start: 11-14-2024 End: 11-14-2024 Patient encounter procedure 11/14/2024 2:00 PM EST Office Visit [facility] [address] [place] [id number] [place] [id number] [address] Department [place] [address] [facility] Start: 05-19-2023 Influenza vaccination Influenza Vacc ine (#1) [facility] Start: 11-10-2022 FUV, Provider: Rafita Kelly, Status: Pen, Time: 2:20 PM FUV, Provider: Rafita Kelly, Status: Pen, Time: 2:20 PM KS-Woxvmvrjix-Uwhsrf 220 Work Phone: Start: 12-04-2013 DTaP/Tdap/Td Vaccine s (1 - Tdap) DTaP/Tdap/Td Vaccines (1 - Tdap) [facility] Start: 12-04-2009 Hepatitis C screening Hepatitis C Sc [facility] Start: 12-04-1992 MMR Vaccines (1 of 1 - Standard series) MMR Vaccines (1 of 1 - Standard series) [facility] Start: 12-04-1992 Varicella vaccination Varicell a Vaccines (1 of 2 - 2-dose childhood series) [facility] Start: 06-06-1992 COVID-19 Vaccine (#1) COVID-19 Vacci ne (#1) [facility] Start: 1991 Hepatitis B Vaccines (1 of 3 - 3-dose series) Hepatitis B Vaccines (1 of 3 - 3-dose series) [facility] Start: 1991 HIV screening HIV Screening [facility] Start: 1991 Lipid panel Lipid Panel [facility] Start: 1991 Yearly Adult Physical Yearly Adult P hysical [facility] Payers Date Payer Category Payer Unknown 2022 Unknown [id number] 1991 Unknown [id number] 1991 Unknown [id number] 1991 Unknown [id number] Unknown [id number] Social History Date Type Detail Facility Never smoker Never smoker [facility]-Wwkpodupae-D smitha 220 Work Phone: Start: 11-09-2023 Tobacco smoking stat us COIS Never smoked tobacco [facility] Work Phone: Start: 11-09-2023 Tobacco use and exposure Smokeless tobacco non-user [facility] Work Phone: Start: 11-09-2023 Alcohol intake Lifetime non-d kemal (finding) [facility] Work Phone: Start: 1990 Sex Assigned At Not on file U [facility] Work Phone: Gender identity Not [facility] file [facility] Work [facility]: History of Present illness Narrative 11-09-2023 Rafita Kelly MD - 11/09/2023 2:00 PM EST Note Date & Type Note Facility 11-09-2023 History of Present illness Narrative Subjective Herbie Klein is a 32 y.o. male. HPI Herbie is a 32 year old man with ASD and anxiety. He is doing well on sertraline 100 mg daily. Mood is usually good. 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 He volunteers more irregularly due to his Crohns.. He has a woodworking hobby. He changed from [employer] to [employer] and [employer] activities. He is sleeping and eating adequately (sleeps till noon and is awake most of the night). He is living in an apartment attached to his sister's home (they bought it from his parents). He interacts with his nieces. Review of Systems All other systems have been reviewed with no other pertinent positives. He has a diagnosis of Crohn's disease (initially manifested by diarrhea and anemia) on Stellara. He is feeling better since August 2023. Objective Neurological Exam Mental Status Awake and alert. Sits quietly Speaks in soft voice. Physical Exam Constitutional: General: He is awake. Neurological: Mental Status: He is alert. Assessment/Plan Herbie is doing OK. Anxiety is reasonably controlled. 1. No change in sertraline dose. A prescription renewal with 11 refills was sent. Dose can be increased if needed. 2. Follow up will be in 1 year. documented in this encounter [facility] Work Phone: Instructions 11-09-2023 Patient Instructions Note Date & Type Note Facility 11-09-2023 Instructions Rafita Kelly MD - 11/09/2023 2:00 PM EST Herbie is doing OK. Anxiety is reasonably controlled. 1. No change in sertraline dose. A prescription renewal with 11 refills was sent. Dose can be increased if needed. 2. Follow up will be in 1 year. documented in this encounter [facility] Work Phone: Chief complaint Narrative - Reported 11-11-2022 Note Date & Type Note Facility 11-11-2022 Chief complaint Narrative - Reported An interactive audio and video telecommunication system which permits real time communications between the patient (at the originating site) and provider (at the distant site) was utilized to provide this telehealth service.Verbal consent was requested and obtained for minor from Mother (parent/guardian) on this date, 11/11/2022 10:00 AM , for a telehealth visit.FUAccompanied by mother. [facility] 220 Work Phone: Evaluation note Note Date & Type Note Facility Evaluation note Diagnosis Anxiety disorder, unspecified type- Primary documented in this encounter [facility] Work Phone: History of Present illness Narrative Note Date & Type Note Facility History of Present illness Narrative Herbie is a 30 year old man with ASD and anxiety. 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 Family has been helping him with seeking employment options. He has a woodworking hobby. He goes with his brother to [employer] activities.He is sleeping and eating adequately (sleeps till noon and is awake most of the night). He is living in an apartment attached to his sister's home (they bought it from his parents). He interacts with his nieces. He keeps busy with books and puzzles. He will be helping his sister at her new job with computers. [facility]Ch[facility]avkth[facility]Avdcwi 220 Work Phone: History of Present illness Narrative Note Date & Type Note Facility History of Present illness Narrative Herbie is a 30 year old man with ASD and anxiety. 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 Family has been helping him with seeking employment options. He has a woodworking hobby. He goes with his brother to [employer] activities.He is sleeping and eating adequately (sleeps till noon and is awake most of the night). He is living in an apartment attached to his sister's home (they bought it from his parents). He interacts with his nieces. He keeps busy with books and puzzles. He will be helping his sister at her new job with computers. OQ-Fajcdkhpwk-Swpbeguzj-Ad min RBC 585 Work Phone: History of Present illness Narrative Note Date & Type Note Facility History of Present illness Narrative This visit was completed via [employer] due to the restrictions of the COVID-19 pandemic. All issues as below were discussed and addressed but no physical exam was performed. If it was felt that the patient should be evaluated in clinic then they were directed there. The patient's mother verbally consented to the visit.Herbie is a 31 year old man with ASD and anxiety. He is doing well on sertraline 100 mg daily. 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 He volunteers once weekly. He has a woodworking hobby. He goes with his brother to [place] activities.He is sleeping and eating adequately (sleeps till noon and is awake most of the night). He is living in an apartment attached to his sister's home (they bought it from his parents). He interacts with his nieces. [id number]-Qhkmspegruk 220 Work Phone: Chief Complaint * follow up office visit * Accompanied by mother. * follow up office visit * Accompanied by mother. Family History No Family History Records FoundUnknown Family Member Name Dates Details No pertinent family history: Mother, Father(V49.89, Z78.9) Status:Active Unknown Family Member Name Dates Details No pertinent family history: Mother, Father(V49.89, Z78.9) Status:Active Unknown Family Member Name Dates Details No pertinent family history: Mother, Father(V49.89, Z78.9) Status:Active Summary Purpose Advance Directives No Advanced Directives Records FoundNo Advanced Directives Records FoundNo Advanced Directives Records FoundNo Advanced Directives Records Found Additional Source Comments (unrecognized sect ion and content) No Status Records FoundNo Status Records FoundNo Status Records FoundNo Status Records Found INFORMATION SOURCE (unrecogn ized section and content) DATE CREATED AUTHOR 11/12/2022 [facility] DATE CREATED AUTHOR AUTHOR'S ORGANIZ ATION 11/12/2022 [employer] DATE CREATED AUTHOR AUTHOR'S ORGANIZ ATION 06/23/2023 [facility] ([place] DATE CREATED AUTHOR AUTHOR'S ORGANIZ ATION 11/17/2023 [facility] Reason for Visit (unrecogniz ed section and content) Reason Comments Follow-up Patient here with mo m Care Teams (unrecognized sec tion and content) Apartment Maintenance Relationship Specialty Start Date End Date Marcio Barron DO [address] [facility] [place] [address] PCP - General Family Medicine 11/09/23 FOR RECORDS PERTAINING TO PATIENTS WHO ARE OR HAVE BEEN ENROLLED IN A CHEMICAL DEPENDENCY/SUBSTANCEABUSE PROGRAM, SOME INFORMATION MAY BE OMITTED. This clinical summary was aggregated from multiple sources. Caution should be exercised in using it in the provision of clinical care. This summary normalizes information from multiple sources, and as a consequence, information in this document may materially change the coding, format and clinical context of patient data. In addition, data may be omitted in some cases. CLINICAL DECISIONS SHOULD BE BASED ON THE PRIMARY CLINICAL RECORDS. [email or web address] provides no warranty or guarantee of the accuracy or completeness of information in this document.
[2024-07-10 12:59] LABS: CRP < 2.90 mg/L (0.0-3.0)
[2024-07-12 19:07] LABS: Calprotectin, Stool 823 ug/g (0-120)
== END | disposition home or self-care (01) ==
PROVIDERS: PCP Family Medicine; Referring Provider Internal Medicine Gastroenterology; Visit Provider Internal Medicine Gastroenterology
DX: K50.90 Crohn's disease, unspecified, without complications (principal)
CPT/HCPCS: 36415; 83993; 85652; 86140

== ENCOUNTER → 2024-09-04 | Outpatient (CLI) | payer OTHER, SELFPAY ==
[2024-09-04 16:08] LABS: Erythrocyte Sedimentation Rate 22 mm/hr (0-20)
[2024-09-04 16:24] LABS: CRP < 2.90 mg/L (0.0-3.0)
[2024-09-08 03:06] LABS: Calprotectin, Stool 249 ug/g (0-120)
== END | disposition home or self-care (01) ==
PROVIDERS: PCP Family Medicine; Referring Provider Student in an Organized Health Care Education/Training Program; Visit Provider Student in an Organized Health Care Education/Training Program
DX: K50.90 Crohn's disease, unspecified, without complications (principal)
CPT/HCPCS: 36415; 83993; 85652; 86140

== ENCOUNTER → 2024-11-08 | Outpatient (CLI) | payer OTHER, SELFPAY ==
[2024-11-08 14:43] LABS: Absolute Lymphocyte Count 0.31 X10^3/uL (0.83-4.51); Absolute Neutrophil Count 9.9 X10^3/uL (2.0-7.7); Hemoglobin 11.2 g/dL (13.0-16.5); Lymphocyte # 0.31 X10^3/ul (0.83-4.51); Mean Corp Hgb Conc 27.3 g/dL (32-36); Mean Corpuscular Hgb 19.4 pg (27.0-32.0); Mean Corpuscular Volume 71.1 fL (80-94); Mean Platelet Vol. 9.5 fl (6.2-12.0); Monocyte# 0.07 X10^3/uL; Monocyte% 0.7 % (0-10); NRBC Flagged by Analyzer 0 % (0-5); Neutrophil # 9.89 X10^3/uL (2.7-7.7); Neutrophil % 95.8 % (47-70); POSITIVE DIFFERENTIAL YES; Platelet Count 354 K/mm3 (150-450); RBC Distribution Width CV 17.9 % (11.6-14.6); RBC Distribution Width SD 43.9 fl (35.1-43.9); Red Blood Count 5.77 M/mm3 (4.6-6.2); White Blood Count 10.3 K/mm3 (4.4-11.0)
[2024-11-08 15:08] LABS: ALB/GLOB Ratio 0.9 RATIO (0.9-2.4); AST(SGOT) 7 U/L (15-37); Alanine Aminotransfer ALT/SGPT 22 U/L (16-61); Albumin, Serum 3.4 g/dL (3.2-5.0); Alkaline Phosphatase 64 U/L (45-117); Anion Gap 5 (5-15); BUN 15 mg/dL (7-18); BUN/Creat Ratio 12.8 RATIO (10-20); Calcium,Total 9.1 mg/dL (8.5-10.1); Chloride 105 mmol/L (98-107); Creatinine, Serum 1.17 mg/dL (0.70-1.30); EST Glomerular Filtration Rate 76 mL/min (>60); Erythrocyte Sedimentation Rate 25 mm/hr (0-20); Est Glom Filt Rate - Afr Amer 92 mL/min (>60); Globulin 3.9 g/dL (2.2-4.2); Glucose 113 mg/dL (74-106); Potassium 4.1 mmol/L (3.5-5.1); Protein, Total 7.3 g/dL (6.4-8.2); Sodium Level 140 mmol/L (136-145)
[2024-11-12 15:08] LABS: Calprotectin, Stool 140 ug/g (0-120)
== END | disposition home or self-care (01) ==
LOC: LAB 13:41
PROVIDERS: PCP Family Medicine; Referring Provider Internal Medicine Gastroenterology; Visit Provider Internal Medicine Gastroenterology
DX: D64.9 Anemia, unspecified (principal); K50.90 Crohn's disease, unspecified, without complications
CPT/HCPCS: 36415; 80053; 83993; 85025; 85652; 86140

== ENCOUNTER → 2024-12-27 | Outpatient (CLI) | payer OTHER, SELFPAY ==
[2024-12-31 13:08] LABS: Calprotectin, Stool 352 ug/g (0-120)
== END | disposition home or self-care (01) ==
LOC: LABSPEC 13:09
PROVIDERS: PCP Family Medicine; Referring Provider Internal Medicine Gastroenterology; Visit Provider Internal Medicine Gastroenterology
DX: K50.90 Crohn's disease, unspecified, without complications (principal)
CPT/HCPCS: 83993

== ENCOUNTER → 2025-02-13 | Outpatient (CLI) | payer OTHER, SELFPAY ==
[2025-02-13 16:22] LABS: Erythrocyte Sedimentation Rate 13 mm/hr (0-20)
[2025-02-13 17:09] LABS: CRP 6.19 mg/L (0.0-3.0)
[2025-02-18 15:08] LABS: Calprotectin, Stool 899 ug/g (0-120)
== END | disposition home or self-care (01) ==
LOC: LAB 14:30
PROVIDERS: Student in an Organized Health Care Education/Training Program; PCP Family Medicine; Referring Provider Internal Medicine Gastroenterology; Visit Provider Internal Medicine Gastroenterology
DX: K50.90 Crohn's disease, unspecified, without complications (principal); D64.9 Anemia, unspecified
CPT/HCPCS: 36415; 83993; 85652; 86140

== ENCOUNTER → 2025-07-18 | Outpatient (CLI) | payer OTHER, SELFPAY ==
[2025-07-18 13:59] LABS: Hematocrit 47.2 % (40-54); Hemoglobin 14.8 g/dL (13.0-16.5); Immature Granulocytes Count 0.010 X10^3/uL (0.0-0.0); Immature Reticulocyte Fraction 11.30 % (3.00-15.90); Mean Corp Hgb Conc 31.4 g/dL (32-36); Mean Corpuscular Volume 72.1 fL (80-94); Mean Platelet Vol. 9.4 fl (6.2-12.0); NRBC Flagged by Analyzer 0 % (0-5); Platelet Count 318 K/mm3 (150-450); RBC Distribution Width CV 19.1 % (11.6-14.6); RBC Distribution Width SD 46.1 fl (35.1-43.9); Red Blood Count 6.55 M/mm3 (4.6-6.2); Reticulocyte Count 1.01 % (0.5-1.5); White Blood Count 6.4 K/mm3 (4.4-11.0)
[2025-07-18 18:05] LABS: Ferritin 16 ng/mL (37-417)
[2025-07-18 18:51] LABS: CRP 12.80 mg/L (0.0-3.0); Iron 42 ug/dL (65-175); LDH 180 U/L (87-241)
[2025-07-21 14:09] LABS: Immunoglobulin A 405 mg/dL (90-386)
[2025-07-22 16:09] LABS: Calprotectin, Stool 886 ug/g (0-120)
== END | disposition home or self-care (01) ==
LOC: LAB 13:36
PROVIDERS: PCP Family Medicine; Referring Provider Internal Medicine Gastroenterology; Visit Provider Internal Medicine Gastroenterology
DX: K50.90 Crohn's disease, unspecified, without complications (principal); D64.9 Anemia, unspecified
CPT/HCPCS: 36415; 82728; 82784; 83516; 83540; 83615; 83993; 85025; 85045; 85652; 86140; 86255

== ENCOUNTER → 2025-08-28 | Outpatient (CLI) | payer OTHER, SELFPAY ==
[2025-08-28 14:14] LABS: CRP 4.24 mg/L (0.0-3.0)
--- OUTSIDE RECORDS SUMMARY | 2025-08-28 14:37 | XMS RPT_ITS | CCD ---
Demographics Address [address] [place] [address] Preferred Language en Marital Status Single Methodist Affiliation Unknown Race White Ethnic Group Not or Lati no Author Organization [facility] Care Team Providers Care Eight Arm Operator Name Role Phone Dennis Urena Unavailable Unavailable Unavailable Dr. Dennis Urena Referring Unavail able Dr. Dennis Urena Primary Care Unavail able William Kelly Attending Unavailable Dr. John Serrano Emergency Provider Dr. Marcio Barron Primary Care Provider [phone] Dr. Sandro Dey Admit Provider Dr. Sandro Dey Attending Provider Dr. Sandro Dey Other Provider Dr. Ephraim Sandoval Attending Provider Dr. Dank [place] Attending Provider Unavailable Dr. Dank [place] Other Provider Unavailable JULIAN MATHS TUTOR-MONITOR TECHMARISA Attending Hazelva ilMARCIO Oswald Primary Care Unavailable Dr. Dank [place] Referring Provider Unavailable Dr. John Serrano Emergency Provider [phone] Dr. Marcio Barron Primary Care Provider Dr. Sandro Dey Admit Provider Dr. Sandro Dey Attending Provider Dr. Sandro Dey Other Provider Dr. Ephraim Sandoval Attending Provider Dr. Dank [place] Referring Provider Unavailable Dr. Dank [place] Attending Provider Unavailable Dr. Dank [place] Other Provider Unavailable Marcio Barron DO Primary Care Provider Dr. Marcio Barron Primary Care Provider Beatrice, Dr. Sheriff Referring Provider Friend, Dr. Ye Attending Provider Beatrice DO, Marcio Diggs Primary Care Provider WILLIAM KELLY Attending Unavailable BEATRICE, MARCIO TAYLA [facility] Unavailable Beatrice DO, Dr. Sheriff Primary Care Provider Michelle Kwon Attending Provider Michelle Kwon Referring Provider Beatrice DO, Dr. Sheriff Referring Provider Friend DO, Dr. Ye Attending Provider Friend DO, Dr. Ye Referring Provider Asia Wheeler Attending Provider Unavailabl e Beatrice DO, Dr. Sheriff Primary Care Provider Beatrice DO, Dr. Sheriff Referring Provider Friend DO, Dr. Ye Attending Provider Beatrice DO, Dr. Sheriff Primary Care Provider Beatrice DO, Dr. Sheriff Referring Provider Friend DO, Dr. Ye Attending Provider Michelle Kwon Attending Provider Beatrice DO, Dr. Sheriff Primary Care Provider Friend DO, Dr. Ye Attending Provider Friend DO, Dr. Ye Referring Provider Beatrice DO, Dr. Sheriff Referring Provider Asia Wheeler Attending Provider Unavailabl e Beatrice, Marcio [facility] Unavailable Michelle Luevano Referring Unavailable Michelle Luevano Attending Unavailable BeatriceMarcio Primary Care Unavailable Ephraim Sandoval Attending Unavailable Ephraim Sandoval Referring Unavailable Beatrice, [facility] Unavailable Ephraim Sandoval Attending Unavailable Friend, Ephraim Referring Unavailable Beartice, Marcoi Primary Care Unavailable Friend, Ephraim Attending Unavailable Friend, Ephraim Referring Unavailable Beatrice, Marcio Referring Unavailable Friend, Ephraim Attending Unavailable Beatrice, Marcio Primary Care Unavailable Beatrice, Marcio Referring Unavailable Friend, Ephraim Attending Unavailable Beatrice, Marcio Primary Care Unavailable Beatrice, Marcio Referring Unavailable Friend, Ephraim Attending Unavailable Beatrice, Marcio Primary Care Unavailable Beatrice, Marcio Referring Unavailable Friend, Ephraim Attending Unavailable Beatrice, Marcio Primary Care Unavailable Beatrice, Marcio Referring Unavailable Bodager, Asia Attending Unavailable Beatrice, Marcio Primary Care Unavailable Beatrice, Marcio Referring Unavailable Bodager, Asia Attending Unavailable Beatrice, Marcio Primary Care Unavailable Beatrice, Marcio Referring Unavailable Bodager, Asia Attending Unavailable AtanasovMichelle Attending Unavailable Beatrice, Marcio Referring Unavailable Beatrice, Marcio Referring Unavailable Beatrice, Marcio Primary Care Unavailable Friend, Ephraim Attending Unavailable Beatrice, Marcio Referring Unavailable Beatrice, Marcio Primary Care Unavailable Friend, Ephraim Attending Unavailable Beatrice, Marcio Primary Care Unavailable Friend, Ephraim Attending Unavailable Friend, Ephraim Referring Unavailable Medications Current Medications Medication Drug Class(es) Dates Sig (Normalized) Sig (Original) ferrous sulfate 324 mg delayed release oral tablet (1 source) Start: 04-24-2025 take 1 tablet by mouth three times daily Ferrous Sulfate 324 mg (65 mg iron) tablet,delayed release (DR/EC) Active 324 mg PO THREE TIMES A DAY April 24, 2025 12:00am sertraline 100 mg oral tablet (17 sources) Serotonin Reuptake Inhibitor Start: 06-05-2014 End: 11-14-2025 take 1 tablet by mouth once daily Sertraline 100 mg tablet Active 100 mg PO DAILY June 03, 2023 12:00am Depression Completed/Discontinued Medications Medication Drug Class(es) Dates Sig (Normalized) Sig (Original) budesonide 3 mg delayed release oral capsule (5 sources) Corticosteroid Start: 02-01-2024 End: 02-14-2024 take 3 capsules by mouth once daily Budesonide 3 mg capsule,delayed,ex tend.release Discontinued 9 mg PO DAILY February 01, 2024 12:00February 14, 2024 1:05pm levoFLOXacin 500 mg oral tablet (5 sources) Quinolone Antimicrobial Start: 02-14-2024 End: 02-28-2024 take 1 tablet by mouth once daily Levofloxacin 500 mg tablet Discontinued 500 mg PO DAILY 14 14 February 14, 2024 12:00am February 27, 2024 12:00am February 28, 2024 12:05am metroNIDAZOLE 500 mg oral tablet (5 sources) Nitroimidazole Antimicrobial Start: 02-14-2024 End: 02-28-2024 take 1 tablet by mouth three times daily Metronidazole 500 mg tablet Discontinued 500 mg PO THREE TIMES A DAY 42 14 0 February 14, 2024 12:00am February 27, 2024 12:00am February 28, 2024 12:05am Multivitamin (Daily Multi-Vitamin) tablet (9 sources) Start: 07-03-2023 End: 04-24-2025 Multivitamin (Daily Multi-Vitamin) tablet Discontinued 1 {tbl} PO DAILY July 03, 2023 12:00am April 24, 2025 1:37pm Start: 07-03-2023 Multivitamin ( Daily Multi-Vitamin) tablet Active 1 {tbl} PO DAILY July 03, 2023 12:00am Start: 07-03-2023 take 1 tablet by aniket th once daily Multivitamin (Daily Multi-Vitamin) tablet Active 1 TABLET PO DAILY July 02, 2023 11:00pm Start: 07-03-2023 take 1 tablet by aniket th once daily Multivitamin (Daily Multi-Vitamin) tablet Active 1 TABLET PO DAILY July 03, 2023 12:00am polysaccharide iron complex 150 mg oral capsule (10 sources) Start: 06-06-2023 End: 04-24-2025 take 1 capsule by mouth once daily Polysaccharide Iron Complex (Ferric X-150) 150 mg iron capsule Discontinued 150 mg PO DAILY 60 0 June 06, 2023 12:00am April 24, 2025 1:38pm predniSONE 10 mg oral tablet (20 sources) Start: 11-25-2024 End: 04-24-2025 Prednisone 10 mg tablet Discontinued 10 mg PO daily 21 0 November 25, 2024 12:00am April 24, 2025 1:38pm take 10mg daily for 2 weeks, then take 5mg daily for 2 weeks, then stop. Start: 11-08-2024 End: 04-24-2025 Prednisone 20 mg tablet Disc ontinued 30 mg PO DAILY 40 0 November 08, 2024 9:49am April 24, 2025 1:38pm take 30mg for 2 weeks and then take 20mg for 2 weeks Start: 10-18-2024 take 1.5 tablets by mouth once daily predniSONE (Deltasone) 20 mg tablet Take 1.5 tablets (30 mg) by mouth once daily. 10/18/2024 Active Start: 04-26-2024 End: 11-08-2024 take 2 tablets by mouth once daily Prednisone 20 mg tablet Discontinued 40 mg PO DAILY 60 2 August 19, 2024 9:04am November 08, 2024 9:52am Start: 02-14-2024 End: 04-26-2024 take 3 tablets by mouth once daily Prednisone 20 mg tablet Discontinued 60 mg PO DAILY 90 2 February 14, 2024 12:00am April 26, 2024 9:13am Start: 06-15-2023 End: 08-16-2023 take 4 tablets by mouth every week Prednisone 10 mg tablet Discontinued 10 mg PO As Directed 74 0 June 15, 2023 12:00am August 16, 2023 12:20pm 40mg one week; 30mg one week; 20mg one week; 10mg one week; 5mg one week Start: 06-15-2023 End: 08-16-2023 take 40 mg by mouth every week Prednisone Discontinued 10 MG PO As Directed 74 June 15, 2023 12:00am August 16, 2023 12:20pm 40mg one week; 30mg one week; 20mg one week; 10mg one week; 5mg one week Start: 06-06-2023 take 50 mg by mouth once daily Prednisone Active 50 MG PO DAILY 60 June 06, 2023 12:00am 1 ml ustekinumab 90 mg/ml prefilled syringe (20 sources) Interleukin-12 Antagonist, Interleukin-23 Antagonist Start: 10-24-2023 End: 04-24-2025 Ustekinumab (Stelara) 90 mg/mL syringe Discontinued 90 mg SC every 4 weeks 09 28January 14, 2025 7:04am April 24, 2025 1:33pm Start: 07-26-2023 End: 02-22-2024 Ustekinumab (Stelara) 90 mg/ mL syringe Discontinued 90 mg SC every 8 weeks 7 5 August 14, 2023 10:30am February 22, 2024 9:59am Approved: [id number] Start: 07-26-2023 End: 04-24-2025 take 390 mg intravenously once Ustekinumab (Stelara) 1 30 mg/26 mL solution Discontinued 390 mg IV ONCE July 26, 2023 1:00am April 24, 2025 1:33pm Infuse 390mg via IV for weight of 81kg once. Approved, Case [id number] Problems Active Problems Problem Classification Problem Date Documented Da te Episodic/Chronic Anxiety disorders (9 sources) Anxiety disorder; Translations: [Anxiety state, unspecified] Onset: 11-09-2023 11-09-2023 Chronic Comment on above: Added by Problem Lis t Migration; 2013-09-17; Deficiency and other anemia (16 sources) Anemia; Translations: [Anemia, unspecified] 06-03-2023 Episodic Deficiency and other anemia (8 sources) Anemia, unspecified; Translations: [Anemia, unspecified] Onset: 06-13-2023 06-03-2023 Episodic Disorders usually diagnosed in infancy, childhood, or adolescence (5 sources) Autism spectrum disorder; Translations: [Autistic disorder, current or active state] Onset: 11-09-2023 11-09-2023 Chronic Malaise and fatigue (2 sources) Other fatigue; Translations: [Other fatigue] Onset: 06-13-2023 Episodic Regional enteritis and ulcerative colitis (19 sources) Crohn's disease; Translations: [Crohn's disease, unspecified, without complications] Onset: 11-09-2023 06-15-2023 Chronic Past or Other Problems Problem Classification Problem Date Documented Da te Episodic/Chronic Unclassified (2 sources) Onset: 11-09-2023 Resolved: 11-14-2024 11-09-2023 Results Test Name Value Interpretation Reference Range Facility Gastroenterology Visit Repor ton 07-23-2025 Gastroenterology Visit Report [facility] [address] [place] [address] OFFICE VISIT Date of Service: 07/23/25 MR#: [id number] Acct: [id number] Name: HEBRIE KLEIN Rep #: [id number] 1 : 1990 Provider: Ephraim Sandoval DO Age/Sex: 34/M Location: [facility] Status: Signed Intake Vital Signs 02/26/25 14:21 Height 6 ft 1 in Weight: 301 lb BMI 39.6 Intake Visit Reasons: 3 M FU Allergies No Known Allergies Allergy (Verified 07/18/24 13:30) Medications ???Medication ???Instructions ???Recorded ???Confirmed ???Type sertraline 100 mg tablet 100 mg PO DAILY Depression 3 07/23/25 History ferrous sulfate 324 mg (65 mg 324 mg PO TID #90 tabs 04/24/25 Rx iron) tablet,delayed release risankizumab-rzaa 360 mg/2.4 mL 360 mg (2.4 mL) subcut Q8W #2.4 mL 04/28/25 07/23/25 Rx (150 mg/mL) subcut wearable injector (Skyrizi) PFSH Medical History Wears glasses Depression Autism Non-smoker Social History (Updated 06/03/23 @ 15:[address] Sandro Dey, DO) Smoking Status: Never smoker alcohol intake: never substance use type: does not use HPI HPI Details: HERBIE KLENI, is a 34 M who presents to the office today for follow up. PMH autism spectrum high-functioning. *[facility] hospitalization 06.03.23-06.06.23 for management of anemia with chronic management of autism and depression. ? Biochemical ESR, GA(H717)ME, ANCA, celiac, hepatitis without pertinent abnormality. ? Hgb L7.5, CRP H108, TB+, Crohn???s (apANCA, ACCA) CT abd/pel 06.05.23 hepatomegaly with fatty infiltration; wall thickening of TI, ICValve, ascending colon and descending/sigmoid/rectu m with stranding consistent with acute exacerbation of Crohn???s ? EGD and colonoscopy 06.05.23 EGD mucosal changes EOE, Savary 42F; medium hiatal hernia; medium polypoid pyloric mass, non-necrotizing granulomatous inflammation; duodenitis. Colonoscopy hemorrhoid; rectum through splenic flexure inflammation with aphthous ulcerations. Acute colitis with cryptitis, crypt abscesses, glandular distortion, granulation and fibrinopurulent material Contact 06.15.23 to discuss results and workup need. If repeat TB and/or CXR are positive needs referral to infectious disease. Mother voiced understanding regarding workup and needs. Biochemical CBC (hgb L8.2/anemia), haptoglobin, coag, CMP (calcium L7.7), LFT, LDH, A1c, STEPHANI, AFP, ceruloplasmin, ammonia, ferritin, copper, IGLESIA comp, ASM, AMA, HIV, TB without pertinent abnormality ? ESR H34, CRP H5.18 ? CXR 06.15.23 hyperinflation of lungs consistent with COPD. No evidence of TB US/elastography .02.07 hepatic measurement 17.3, fatty infiltration, stiffness 6.6kPa MREnterography 07.04.23 multiple small bowel loops at TI with circumferential wall thickening with mucosal hyperenhancement; moderate to severe wall thickening of transverse, descending, sigmoid and rectum with mucosal hyperenhancement. OV 3.21.24 mother reports she is not observing as much urgency with BM and feels the frequency has reduced. OV 7.11.24 pt reports that he is feeling well overall and denies GI symptoms of concern at this time. Pt reports 2 soft bm per day; occasional blood when he wipes. Mother reports that pt has mentioned feeling better on the Q4W dosing. OV 10.31.24 Pt has been doing well. He has no GI symptoms or concerns today. His mother has questions regarding his prednisone. OV 2.20.25 pt reports that he is feeling well overall and denies GI symptoms of concern at this time. Pt's mother has questions about lab work and prednisone dosage. Pt continues with Q4W stelara dosing; injection given today at visit. OV 625 Pt doing well today. He denies abd pain, diarrhea or blood in his stool. He does have some joint pain. OV 8..25 pt reports that he is doing well overall, denies GI symptoms of concern at this time. Pt states that he just came from his second Skyrizi infusion. OV 11.25 pt reports that he is doing well overall, denies GI symptoms of concern at this time. Reports his first Skyrizi on-body injector was 10..25. ESR / CRP Calp / Lact Serum / AB 10..24 15 / <2.9 823 / -- -- / -- 12.18.24 22 / <2.9 249 / -- -- / -- 2.21.25 25 / 3.30 140 / -- -- / -- 5.29.25 13 / 6.19 899 / -- -- / -- 7.10.25 Start Skyrizi 07.18. 20 / 12.8 886 / -- -- / -- 34-year-old male with a history of ileocolonic Crohn's disease. He was recently switched from Stelara to Skyrizi due to insurance requirements. He reports no worsening of his usual Crohn's symptoms, specifically denying increased diarrhea, lower GI bleeding, abdominal pain, or any extraintestinal (more content not included)... Normal [facility] Calprotectin, Stoolon [address] 886 ug/g Abnormal 0-120 [facility] Comment on above: Result Comment: Re sults verified by repeat testing Concentration Interpretation Follow-Up < 5 - 50 ug/g Normal None >50 -120 ug/g Borderline Re-evaluate in 4-6 weeks >120 ug/g Abnormal Repeat as clinically indicated Performed at: - [facility] [id number] Fire Engine Pump Operator: Jennyfer De La Torre MD, Phone: [phone] Performed By: #### L [id number], L2800.0700 #### [facility] [address] [place], [address] Celiac Disease Profileon ENDOMYSIAL IGA Negative Normal Negative [facility] Comment on above: Performed By: #### L 101.9900, [id number] #### [facility] [address] [place], [address] IMMUNOGLOB A QN 405 mg/dL High 90-386 [facility] Comment on above: Result Comment: Perf ormed at: [facility] [id number] Fire Engine Pump Operator: Chavo Bañuelos PhD, Phone: [phone] Performed By: #### L 101.9900, [id number] #### [facility] [address] [place], [address] tTG IGA <2 Normal 0-3 [facility] Comment on above: Result Comment: Nega tive 0 - 3 Weak Positive 4 - 10 Positive >10 Tissue Transglutaminase (tTG) has been identified as the endomysial antigen. Studies have demonstr- ated that endomysial IgA antibodies have over 99% specificity for gluten sensitive enteropathy. Performed By: #### L 101.9900, [id number] #### [facility] [address] [place], [address] CBC W/Diff, Automatedon 06-20 Absolute Lymph 1.39 X10 3/uL Normal 0.83-4.51 [facility] Comment on above: Performed By: #### L [id number], L100.0100, L504.2610, L503.6150, L503.6550, L100.9950, L101.9900, L3410.2400, L7000.0700 #### [facility] [address] [place], [address] Absolute Neut 4.1 X10 3/uL Normal 2.0-7.7 [facility] Comment on above: Performed By: #### L 501.6710, L100.0100, L504.2610, L503.6150, L503.6550, L100.9950, L101.9900, L3410.2400, L7000.0700 #### [facility] [address] [place], [address] Basophils/100 WBC (Bld) 0.8 % Normal 0-1 [facility] Comment on above: Performed By: #### L 501.6710, L100.0100, L504.2610, L503.6150, L503.6550, L100.9950, L101.9900, L3410.2400, L7000.0700 #### [facility] [address] [place], [address] Eosinophils/100 WBC (Bld) 2.8 % Normal 0-5 [facility] Comment on above: Performed By: #### L 501.6710, L100.0100, L504.2610, L503.6150, L503.6550, L100.9950, L101.9900, L3410.2400, L7000.0700 #### [facility] [address] [place], [address] Erythrocyte distribution width (RBC) [Ratio] 19.1 % High 11.6-14.6 [facility] Comment on above: Performed By: #### L 501.6710, L100.0100, L504.2610, L503.6150, L503.6550, L100.9950, L101.9900, L3410.2400, L7000.0700 #### [facility] [address] [place], [address] Hematocrit (Bld) [Volume fraction] 47.2 % Normal 40-54 [facility] Comment on above: Performed By: #### L 501.6710, L100.0100, L504.2610, L503.6150, L503.6550, L100.9950, L101.9900, L3410.2400, L7000.0700 #### [facility] [address] [place], [address] Hemoglobin (Bld) [Mass/Vol] 14.8 g/dL Normal 13.0-16.5 [facility] Comment on above: Performed By: #### L 501.6710, L100.0100, L504.2610, L503.6150, L503.6550, L100.9950, L101.9900, L3410.2400, L7000.0700 #### [facility] [address] [place], [address] IG% 0.200 Normal 0.0-0.9 [facility] Comment on above: Result Comment: IG% - Immature Granulocytes (promyelocytes, myelocytes and metamyelocytes) > 1% indicates that a LEFT SHIFT is Present. Performed By: #### L 501.6710, L100.0100, L504.2610, L503.6150, L503.6550, L100.9950, L101.9900, L3410.2400, L7000.0700 #### [facility] [address] [place], [address] Lymphocytes/100 WBC (Bld) 21.8 % Normal 19-41 [facility] Comment on above: Performed By: #### L 501.6710, L100.0100, L504.2610, L503.6150, L503.6550, L100.9950, L101.9900, L3410.2400, L7000.0700 #### [facility] [address] [place], [address] MCH (RBC) [Entitic mass] 22.6 pg Low 27.0-32.0 [facility] Comment on above: Performed By: #### L 501.6710, L100.0100, L504.2610, L503.6150, L503.6550, L100.9950, L101.9900, L3410.2400, L7000.0700 #### [facility] [address] [place], [address] MCHC (RBC) [Mass/Vol] 31.4 g/dL Low 32-36 [facility] Comment on above: Performed By: #### L 501.6710, L100.0100, L504.2610, L503.6150, L503.6550, L100.9950, L101.9900, L3410.2400, L7000.0700 #### [facility] [address] [place], [address] MCV (RBC) [Entitic vol] 72.1 fL Low 80-94 [facility] Comment on above: Performed By: #### L 501.6710, L100.0100, L504.2610, L503.6150, L503.6550, L100.9950, L101.9900, L3410.2400, L7000.0700 #### [facility] [address] [place], [address] Monocytes/100 WBC (Bld) 10.8 % High 0-10 [facility] Comment on above: Performed By: #### L 501.6710, L100.0100, L504.2610, L503.6150, L503.6550, L100.9950, L101.9900, L3410.2400, L7000.0700 #### [facility] [address] [place], [address] Neutrophils/100 WBC (Bld) 63.6 % Normal 47-70 [facility] Comment on above: Performed By: #### L 501.6710, L100.0100, L504.2610, L503.6150, L503.6550, L100.9950, L101.9900, L3410.2400, L7000.0700 #### [facility] [address] [place], [address] Nucleated RBC (Bld) [#/Vol] 0 10*3/uL Normal 0-5 [facility] Comment on above: Performed By: #### L 501.6710, L100.0100, L504.2610, L503.6150, L503.6550, L100.9950, L101.9900, L3410.2400, L7000.0700 #### [facility] [address] [place], [address] Platelet mean volume (Bld) [Entitic vol] 9.4 fL Normal 6.2-12.0 [facility] Comment on above: Performed By: #### L 501.6710, L100.0100, L504.2610, L503.6150, L503.6550, L100.9950, L101.9900, L3410.2400, L7000.0700 #### [facility] [address] [place], [address] Platelets (Bld) [#/Vol] 318 10*3/uL Normal 150-450 [facility] Comment on above: Performed By: #### L 501.6710, L100.0100, L504.2610, L503.6150, L503.6550, L100.9950, L101.9900, L3410.2400, L7000.0700 #### [facility] [address] [place], [address] RBC (Bld) [#/Vol] 6.55 10*6/uL High 4.6-6.2 [facility] Comment on above: Performed By: #### L 501.6710, L100.0100, L504.2610, L503.6150, L503.6550, L100.9950, L101.9900, L3410.2400, L7000.0700 #### [facility] [address] [place], [address] RDW SD 46.1 fl High 35.1-43.9 [facility] Comment on above: Performed By: #### L 501.6710, L100.0100, L504.2610, L503.6150, L503.6550, L100.9950, L101.9900, L3410.2400, L7000.0700 #### [facility] [address] [place], [place], [id number] WBC (Bld) [#/Vol] 6.4 10*3/uL Normal 4.4-11.0 [facility] Comment on above: Performed By: #### L 501.6710, L100.0100, L504.2610, L503.6150, L503.6550, L100.9950, L101.9900, L3410.2400, L7000.0700 #### [facility] [address] [place], [place], [id number] CRPon 07-18-2025 C-REACTIVE PROT 12.80 mg/L High 0.0-3.0 [facility] Comment on above: Performed By: #### L 501.6710, L100.0100, L504.2610, L503.6150, L503.6550, L100.9950, L101.9900, L3410.2400, L7000.0700 #### [facility] [address] [place], [place], [id number] Erythrocyte Sed Rateon 07-18 SED RATE 20 mm/hr Normal 0-20 [facility] Comment on above: Performed By: #### L 501.6710, L100.0100, L504.2610, L503.6150, L503.6550, L100.9950, L101.9900, L3410.2400, L7000.0700 #### [facility] [address] [place], [address] Ferritinon 07-18-2025 Ferritin [Mass/Vol] 16 ng/mL Low 37-417 [facility] Comment on above: Performed By: #### L 501.6710, L100.0100, L504.2610, L503.6150, L503.6550, L100.9950, L101.9900, L3410.2400, L7000.0700 #### [facility] [address] [place], [address] Ironon 07-18-2025 Iron [Mass/Vol] 42 ug/dL Low 65-175 [facility] Comment on above: Performed By: #### L 501.6710, L100.0100, L504.2610, L503.6150, L503.6550, L100.9950, L101.9900, L3410.2400, L7000.0700 #### [facility] [address] [place], [address] LDHon 07-18-2025 LDH 180 U/L Normal 87-241 [facility] Comment on above: Order Comment: 1 Performed By: #### L 101.9900, [id number] #### [facility] [address] [place], [place], [id number] Retic Panelon 07-18-2025 IM RET FRACTION 11.30 Normal 3.00-15.90 [facility] Comment on above: Performed By: #### L 501.6710, L100.0100, L504.2610, L503.6150, L503.6550, L100.9950, L101.9900, L3410.2400, L7000.0700 #### [facility] [address] [place], [address] RET-HE 23.8 pg Low 30-35 [facility] Comment on above: Performed By: #### L 501.6710, L100.0100, L504.2610, L503.6150, L503.6550, L100.9950, L101.9900, L3410.2400, L7000.0700 #### [facility] [address] [place], [place], [id number] Retic Count 1.01 Normal 0.5-1.5 [facility] Comment on above: Performed By: #### L 501.6710, L100.0100, L504.2610, L503.6150, L503.6550, L100.9950, L101.9900, L3410.2400, L7000.0700 #### [facility] [address] [place], [place], [address] Gastroenterology Visit Repor ton 04-24-2025 Gastroenterology Visit Report [facility] [address] [place] [address] OFFICE VISIT Date of Service: 04/24/25 MR#: [id number] Acct: [id number] Name: HERBIE KLEIN Rep #: [id number] : 1990 Provider: Ephraim Sandoval DO Age/Sex: 34/M Location: [facility] Status: Signed Intake Vital Signs 08/14/24 10:54 02/26/25 14:21 Height 6 ft 1 in 6 ft 1 in Intake Visit Reasons: 6 M FU and Injection Allergies No Known Allergies Allergy (Verified 07/18/24 13:30) Medications ???Medication ???Instructions ???Recorded ???Confirmed ???Type sertraline 100 mg tablet 100 mg PO DAILY Depression 3 04/24/25 History ferrous sulfate 324 mg (65 mg 324 mg PO TID #90 tabs 04/24/25 Rx iron) tablet,delayed release PFSH Medical History Wears glasses Depression Autism Non-smoker Social History (Updated 06/03/23 @ 15:[address] Sandro Dey, DO) Smoking Status: Never smoker alcohol intake: never substance use type: does not use HPI HPI Details: HERBIE KLEIN, is a 34 M who presents to the office today for follow up. PMH autism spectrum high-functioning. *[facility] hospitalization 06.03.23-06.06.23 for management of anemia with chronic management of autism and depression. ? Biochemical ESR, GA(H717)ME, ANCA, celiac, hepatitis without pertinent abnormality. ? Hgb L7.5, CRP H108, TB+, Crohn???s (apANCA, ACCA) CT abd/pel 06.05.23 hepatomegaly with fatty infiltration; wall thickening of TI, ICValve, ascending colon and descending/sigmoid/rectu m with stranding consistent with acute exacerbation of Crohn???s ? EGD and colonoscopy 06.05.23 EGD mucosal changes EOE, Savary 42F; medium hiatal hernia; medium polypoid pyloric mass, non-necrotizing granulomatous inflammation; duodenitis. Colonoscopy hemorrhoid; rectum through splenic flexure inflammation with aphthous ulcerations. Acute colitis with cryptitis, crypt abscesses, glandular distortion, granulation and fibrinopurulent material Contact 06.15.23 to discuss results and workup need. If repeat TB and/or CXR are positive needs referral to infectious disease. Mother voiced understanding regarding workup and needs. Biochemical CBC (hgb L8.2/anemia), haptoglobin, coag, CMP (calcium L7.7), LFT, LDH, A1c, STEPHANI, AFP, ceruloplasmin, ammonia, ferritin, copper, IGLESIA comp, ASM, AMA, HIV, TB without pertinent abnormality ? ESR H34, CRP H5.18 ? CXR 06.15.23 hyperinflation of lungs consistent with COPD. No evidence of TB US/elastography 06.22.23 hepatic measurement 17.3, fatty infiltration, stiffness 6.6kPa MREnterography 07.04.23 multiple small bowel loops at TI with circumferential wall thickening with mucosal hyperenhancement; moderate to severe wall thickening of transverse, descending, sigmoid and rectum with mucosal hyperenhancement. OV 3 mother reports she is not observing as much urgency with BM and feels the frequency has reduced. OV 7 pt reports that he is feeling well overall and denies GI symptoms of concern at this time. Pt reports 2 soft bm per day; occasional blood when he wipes. Mother reports that pt has mentioned feeling better on the Q4W dosing. OV 07.18.24 Pt has been doing well. He has no GI symptoms or concerns today. His mother has questions regarding his prednisone. OV 2. pt reports that he is feeling well overall and denies GI symptoms of concern at this time. Pt's mother has questions about lab work and prednisone dosage. Pt continues with Q4W stelara dosing; injection given today at visit. OV 6. Pt doing well today. He denies abd pain, diarrhea or blood in his stool. He does have some joint pain. OV 8.. pt reports that he is doing well overall, denies GI symptoms of concern at this time. Pt states that he just came from his second Skyrizi infusion. ESR / CRP Calp / Lact Serum / AB 07.10.24 15 / <2.9 823 / -- -- / -- 12.. 22 / <2.9 249 / -- -- / -- 2.. 25 / 3.30 140 / -- -- / -- 5..25 13 / 6.19 899 / -- -- / -- 7.. Start Skyrizi ROS Const Constitutional: Positive for fatigue; No fever(s) or weight change ENT ENT: No difficulty swallowing Gastro GI: No abdominal pain, belching, bloating, change in bowel habits, change in stool character, coffee ground emesis, constipation, cramping, diarrhea, heartburn, difficulty swallowing, feeling full early, excessive flatus, incontinent of stools, Vomiting blood/hematemesis, Blood in stool, loose stools, Black,tarry stools, nausea/dyspepsia, pain with swallowing, vomiting or other Musc Musculoskeletal: Positive for back pain; No joint pain Skin Skin: No yellowing of the eye or itchy eyes (more content not included)... Normal [facility] Gastroenterology Visit Repor ton 02-26-2025 Gastroenterology Visit Report [facility]enter[facility] [address] [place] [address] OFFICE VISIT Date of Service: 02/26/25 MR#: [id number] Acct: [id number] Name: HERBIE KLEIN Rep #: [id number] : 1990 Provider: LALITO Rodriguez Age/Sex: 34/M Location: [facility] Status: Signed Intake Vital Signs 08/14/24 10:54 02/26/25 14:21 Height 6 ft 1 in 6 ft 1 in Weight: 301 lb BMI 39.6 Intake Visit Reasons: DISCUSS TREATMENT OPTIONS Chief Complaint: f/u Allergies No Known Allergies Allergy (Verified 07/18/24 13:30) Nurse's Note: OV 02/26/25 Pt here for a f/u and reports he is feeling well with no GI complaints. PFSH Medical History Wears glasses Depression Autism Non-smoker Social History (Updated 06/03/23 @ 15:[address] Sandro Dey, DO) Smoking Status: Never smoker alcohol intake: never substance use type: does not use HPI HPI Chief Complaint: f/u Details: HERBIE KLEIN, is a 34 M who presents to the office today for f/u. PMH autism spectrum high-functioning. *[facility] hospitalization 06.03.23-06.06.23 for management of anemia with chronic management of autism and depression. ? Biochemical ESR, GA(H717)ME, ANCA, celiac, hepatitis without pertinent abnormality. ? Hgb L7.5, CRP H108, TB+, Crohn???s (apANCA, ACCA) CT abd/pel 06.05.23 hepatomegaly with fatty infiltration; wall thickening of TI, ICValve, ascending colon and descending/sigmoid/rectu m with stranding consistent with acute exacerbation of Crohn???s ? EGD and colonoscopy 06.05.23 EGD mucosal changes EOE, Savary 42F; medium hiatal hernia; medium polypoid pyloric mass, non-necrotizing granulomatous inflammation; duodenitis. Colonoscopy hemorrhoid; rectum through splenic flexure inflammation with aphthous ulcerations. Acute colitis with cryptitis, crypt abscesses, glandular distortion, granulation and fibrinopurulent material Contact 06.15.23 to discuss results and workup need. If repeat TB and/or CXR are positive needs referral to infectious disease. Mother voiced understanding regarding workup and needs. Biochemical CBC (hgb L8.2/anemia), haptoglobin, coag, CMP (calcium L7.7), LFT, LDH, A1c, STEPHANI, AFP, ceruloplasmin, ammonia, ferritin, copper, IGLESIA comp, ASM, AMA, HIV, TB without pertinent abnormality ? ESR H34, CRP H5.18 ? CXR 06.15.23 hyperinflation of lungs consistent with COPD. No evidence of TB US/elastography 06.22.23 hepatic measurement 17.3, fatty infiltration, stiffness 6.6kPa MREnterography 07.04.23 multiple small bowel loops at TI with circumferential wall thickening with mucosal hyperenhancement; moderate to severe wall thickening of transverse, descending, sigmoid and rectum with mucosal hyperenhancement. OV 3.24 mother reports she is not observing as much urgency with BM and feels the frequency has reduced. OV 7.11.24 pt reports that he is feeling well overall and denies GI symptoms of concern at this time. Pt reports 2 soft bm per day; occasional blood when he wipes. Mother reports that pt has mentioned feeling better on the Q4W dosing. OV 10.31.24 Pt has been doing well. He has no GI symptoms or concerns today. His mother has questions regarding his prednisone. OV 2..25 pt reports that he is feeling well overall and denies GI symptoms of concern at this time. Pt's mother has questions about lab work and prednisone dosage. Pt continues with Q4W stelara dosing; injection given today at visit. OV 6..25 Pt doing well today. He denies abd pain, diarrhea or blood in his stool. He does have some joint pain. ROS Const Constitutional: No anorexia, fatigue, fever(s), weight change or sleep problems Eyes Eyes: No change in vision ENT ENT: No abnormal hearing, difficulty swallowing, mouth lesions, tongue swelling or throat swelling Resp Respiratory: No cough or shortness of breath Cardio Cardiology: No chest pain at rest, chest pain with exertion, shortness of breath or dyspnea on exertion Gastro GI: No difficulty swallowing Genitourinary Male: No difficulty urinating or burning urination Musc Musculoskeletal: No joint pain, joint swelling, muscle weakness or decreased muscle mass Skin Skin: No hair loss in leg, yellowing of the eye, itchy eyes, rash, skin ulcer or skin swelling Neuro Neurology: No abnormal hearing, abnormal movements, confusion, unsteady gait/balance or memory loss Psych Psychiatric: No anxiety, No confusion and No memory loss Endo Endocrine: No fatigue or weight change Aller/Imm Allergy/Immunologic: No itchy eyes, throat swelling or tongue swelling Eric/Lymp Hematologic/Lymphatic: No easy bleeding, easy bruising or enlarged lymph nodes Exam (more content not included)... Normal [facility] Calprotectin, Stoolon [address] 899 ug/g Abnormal 0-120 [facility] Comment on above: Result Comment: Re sults verified by repeat testing Concentration Interpretation Follow-Up < 5 - 50 ug/g Normal None >50 -120 ug/g Borderline Re-evaluate in 4-6 weeks >120 ug/g Abnormal Repeat as clinically indicated Performed at: [facility] [id number] Fire Engine Pump Operator: Jennyfer De La Torre MD, Phone: [phone] Performed By: #### L 7000.0700 #### [facility] [address] [place], [address] CRPon 02-13-2025 C-REACTIVE PROT 6.19 mg/L High 0.0-3.0 [facility] Comment on above: Performed By: #### L 7000.0700 #### [facility] [address] [place], [place], [address] Calprotectin stoolOrdered By : Michelle Luevano on 02-13-2025 Calprotectin stool 899 ug/g High 0-120 [facility] Comment on above: Results verified b y repeat testingConcentration Interpretation Follow-Up< 5 - 50 ug/g Normal None>50 -120 ug/g Borderline Re-evaluate in 4-6 weeks >120 ug/g Abnormal Repeat as clinically indicatedPerformed at: [facility] [facility] [facility] [id number] Director: Jennyfer De La Torre MD, Phone: [phone] Erythrocyte Sed Rateon 02-13 SED RATE 13 mm/hr Normal 0-20 [facility] Comment on above: Performed By: #### L 7000.0700 #### [facility] [address] [place], [place], [address] Erythrocyte sedimentation ra teOrdered By: Ephraim Sandoval on 02-13-2025 ESR (Bld) [Velocity] 13 mm/h 0-20 [facility] Serum or plasma C reactive p rotein measurement (mass/volume)Ordered By: Ephraim Sandoval on 02-13-2025 CRP [Mass/Vol] 6.19 mg/L High 0.0-3.0 [facility] Office Visit Reporton 2024 Office Visit Report [facility] [address] [place] [address] OFFICE VISIT Date of Service: 01/30/25 MR#: [id number] Acct: [id number] Patient: HERBIE KLEIN Rep #: [id number] : 1990 Provider: Asia antoine Age/Sex: 34/M Location: [facility] Status: Signed Intake Vital Signs 08/14/24 10:54 Height 6 ft 1 in Intake Visit Reasons: Stelara Injection Chief Complaint: f/u Allergies No Known Allergies Allergy (Verified 07/18/24 13:30) Office Procedures Injections stelara: Procedure performed by: Marychuy Carlos Site of injection: Sub-Q (right arm) Dose of injection: 90mg/ml 01/31/25 0832 Date Ephraim Friend DO Mamadouignmandy Signature: Date (if applicable) CC: Normal [facility] Office Visit Reporton 2024 Office Visit Report [facility] [address] [place] [address] OFFICE VISIT Date of Service: 01/02/25 MR#: [id number] Acct: [id number] Patient: HERBIE KLEIN Rep #: [id number] : 1990 Provider: Asia antoine Age/Sex: 34/M Location: [facility] Status: Signed Intake Vital Signs 08/14/24 10:54 Height 6 ft 1 in Intake Visit Reasons: Stelara Injection Chief Complaint: f/u Allergies No Known Allergies Allergy (Verified 07/18/24 13:30) Office Procedures Injections stelara: Procedure performed by: Asia Wheeler Site of injection: Sub-Q (L arm) Dose of injection: 90 mg/mL Comments: exp: batch: [id number] 01/02/252219 Date Ephraim Friend DO Clare Signature: Date (if applicable) CC: Normal [facility] Calprotectin, Stoolon [address] 352 ug/g Abnormal 0-120 [facility] Comment on above: Result Comment: Conc entration Interpretation Follow-Up < 5 - 50 ug/g Normal None >50 -120 ug/g Borderline Re-evaluate in 4-6 weeks >120 ug/g Abnormal Repeat as clinically indicated Performed at: [facility] [id number] Fire Engine Pump Operator: Jennyfer De La Torre MD, Phone: [phone] Performed By: #### L 7000.0700 #### [facility] [address] [place] [address], [address] Calprotectin stoolOrdered By : Ephraim Friend on 12-27-2024 Calprotectin stool 352 ug/g High 0-120 [facility] Comment on above: Concentration Interp retation Follow-Up< 5 - 50 ug/g Normal None>50 -120 ug/g Borderline Re-evaluate in 4-6 weeks >120 ug/g Abnormal Repeat as clinically indicatedPerformed at: [facility] [id number] Director: Jennyfer De La Torre MD, Phone: [phone] Stool Calprotectin 352 ug/g High 0-120 [facility] Comment on above: Concentration Interp retation Follow-Up< 5 - 50 ug/g Normal None>50 -120 ug/g Borderline Re-evaluate in 4-6 weeks >120 ug/g Abnormal Repeat as clinically indicatedPerformed at: [facility] [id number] Director: Jennyfer De La Torre MD, Phone: [phone] Office Visit Reporton 2024 Office Visit Report [facility] [address] [place] [address] OFFICE VISIT Date of Service: 12/05/24 MR#: [id number] Acct: [id number] Patient: HERBIE KLEIN Rep #: [id number] : 1990 Provider: Asia antoine Age/Sex: 34/M Location: [facility] Status: Signed Intake Vital Signs 08/14/24 10:54 Height 6 ft 1 in Intake Visit Reasons: Stelara Injection Chief Complaint: f/u Allergies No Known Allergies Allergy (Verified 07/18/24 13:30) Office Procedures Injections Stelara: Procedure performed by: sAia Wheeler Site of injection: Sub-Q (Right arm ) Dose of injection: 90mg/ml Comments: expiration: LOT: [id number] 12/06/24 0851 Date Ephraim Friend DO [place] Signature: Date (if applicable) CC: Normal [facility] Calprotectin, Stoolon [address] 140 ug/g Abnormal 0-120 [facility] Comment on above: Result Comment: Conc entration Interpretation Follow-Up < 5 - 50 ug/g Normal None >50 -120 ug/g Borderline Re-evaluate in 4-6 weeks >120 ug/g Abnormal Repeat as clinically indicated Performed at: - [facility] [id number] Fire Engine Pump Operator: Jennyfer De La Torre MD, Phone: [phone] Performed By: #### L [id number], L7000.0700 #### [facility] [address] [place], [address] Absolute lymphocyte countOrd ered By: Ephraim Sandoval on 11-08-2024 Lymphocytes Auto (Unsp spec) [#/Vol] 0.31 10*3/uL Low 0.83-4.51 [facility] Absolute neutrophil countOrd ered By: Ephraim Sandoval on 11-08-2024 Neutrophils (Bld) [#/Vol] 9.9 10*3/uL High 2.0-7.7 [facility] Albumin to globulin ratioOrd ered By: Ephraim Sandoval on 11-08-2024 Albumin/Globulin [Mass ratio] 0.9 {ratio} 0.9-2.4 [facility] Automated lymphocyte count a s percentage of total leukocytesOrdered By: Ephraim Sandoval on 11-08-2024 Lymphocytes/100 WBC Auto (Unsp spec) 3.0 % Low 19-41 [facility] Basophil percentageOrdered B y: Ephraim Sandoval on 11-08-2024 Basophils/100 WBC (Bld) 0.0 % 0-1 [facility] Bilirubin, totalOrdered By: Ephraim Sandoval on 11-08-2024 Bilirubin [Mass/Vol] 0.40 mg/dL 0.20-1.00 [facility] Comment on above: For patients on eltr ombopag therapy, use of Dimension Bardolph TBIL is not recommended. Blood urea nitrogen (BUN)/cr eatinine ratioOrdered By: Ephraimandrea Sandoval on 11-08-2024 Urea nitrogen/Creatinine [Mass ratio] 12.8 mg/mg 10-20 [facility] C-reactive protein measureme nt by high sensitivity methodOrdered By: Ephraimkhalida Sandoval on 11-08-2024 C-Reactive Protein Extended Range 3.30 mg/L High 0.0-3.0 [facility] Comment on above: C-Reactive Protein ( CRP) provides useful information for thediagnosis, therapy and monitoring of inflammatory processesand associated diseases. For the evaluation of Relative Riskfor Cardiovascular Disease, a High Sensitivity CRP (HSCRP)should be ordered. C-reactive protein measurement by high sensitivity method 3.30 mg/L High 0.0-3.0 [facility] Comment on above: C-Reactive Protein ( CRP) provides useful information for thediagnosis, therapy and monitoring of inflammatory processesand associated diseases. For the evaluation of Relative Riskfor Cardiovascular Disease, a High Sensitivity CRP (HSCRP)should be ordered. CBC W/Diff, Automatedon 02-2 Absolute Lymph 0.31 X10 3/uL Low 0.83-4.51 [facility] Comment on above: Performed By: #### L 7000.0700 #### [facility] [address] [place], [address] Absolute Neut 9.9 X10 3/uL High 2.0-7.7 [facility] Comment on above: Performed By: #### L 7000.0700 #### [facility] [address] [place], [address] Basophils/100 WBC (Bld) 0.0 % Normal 0-1 [facility] Comment on above: Performed By: #### L 7000.0700 #### [facility] [address] [place], [address] Eosinophils/100 WBC (Bld) 0.0 % Normal 0-5 [facility] Comment on above: Performed By: #### L 7000.0700 #### [facility] [address] [place], [address] Erythrocyte distribution width (RBC) [Ratio] 17.9 % High 11.6-14.6 [facility] Comment on above: Performed By: #### L 7000.0700 #### [facility] [address] [place], [address] Hematocrit (Bld) [Volume fraction] 41.0 % Normal 40-54 [facility] Comment on above: Performed By: #### L 7000.0700 #### [facility] [address] [place], [address] Hemoglobin (Bld) [Mass/Vol] 11.2 g/dL Low 13.0-16.5 [facility] Comment on above: Performed By: #### L 7000.0700 #### [facility] [address] [place], [address] IG% 0.500 Normal 0.0-0.9 [facility] Comment on above: Result Comment: IG% - Immature Granulocytes (promyelocytes, myelocytes and metamyelocytes) > 1% indicates that a LEFT SHIFT is Present. Performed By: #### L 7000.0700 #### [facility] [address] [place], [address] Lymphocytes/100 WBC (Bld) 3.0 % Low 19-41 [facility] Comment on above: Performed By: #### L 7000.0700 #### [facility] [address] [place], [address] MCH (RBC) [Entitic mass] 19.4 pg Low 27.0-32.0 [facility] Comment on above: Performed By: #### L 7000.0700 #### [facility] [address] [place], [address] MCHC (RBC) [Mass/Vol] 27.3 g/dL Low 32-36 [facility] Comment on above: Performed By: #### L 7000.0700 #### [facility] [address] [place], [address] MCV (RBC) [Entitic vol] 71.1 fL Low 80-94 [facility] Comment on above: Performed By: #### L 7000.0700 #### [facility] [address] [place], [address] Monocytes/100 WBC (Bld) 0.7 % Normal 0-10 [facility] Comment on above: Performed By: #### L 7000.0700 #### [facility] [address] [place], [address] Neutrophils/100 WBC (Bld) 95.8 % High 47-70 [facility] Comment on above: Performed By: #### L 7000.0700 #### [facility] [address] [place], [address] Nucleated RBC (Bld) [#/Vol] 0 10*3/uL Normal 0-5 [facility] Comment on above: Performed By: #### L 7000.0700 #### [facility] [address] [place], [address] Platelet mean volume (Bld) [Entitic vol] 9.5 fL Normal 6.2-12.0 [facility] Comment on above: Performed By: #### L 7000.0700 #### [facility] [address] [place], [address] Platelets (Bld) [#/Vol] 354 10*3/uL Normal 150-450 [facility] Comment on above: Performed By: #### L 7000.0700 #### [facility] [address] [place], [address] RBC (Bld) [#/Vol] 5.77 10*6/uL Normal 4.6-6.2 [facility] Comment on above: Performed By: #### L 7000.0700 #### [facility] [address] [place], [address] RDW SD 43.9 fl Normal 35.1-43.9 [facility] Comment on above: Performed By: #### L 7000.0700 #### [facility] [address] [place], [address] WBC (Bld) [#/Vol] 10.3 10*3/uL Normal 4.4-11.0 [facility] [facility] Comment on above: Performed By: #### L 7000.0700 #### [facility] [address] [place], [address] CRPon 11-08-2024 C-REACTIVE PROT 3.30 mg/L High 0.0-3.0 [facility] Comment on above: Result Comment: C-Re active Protein (CRP) provides useful information for the diagnosis, therapy and monitoring of inflammatory processes and associated diseases. For the evaluation of Relative Risk for Cardiovascular Disease, a High Sensitivity CRP (HSCRP) should be ordered. Performed By: #### L 7000.0700 #### [facility] [address] [place], [address] Calprotectin stoolOrdered By : Ephraim Sandoval on 11-08-2024 Calprotectin stool 140 ug/g High 0-120 [facility] Comment on above: Concentration Interp retation Follow-Up< 5 - 50 ug/g Normal None>50 -120 ug/g Borderline Re-evaluate in 4-6 weeks >120 ug/g Abnormal Repeat as clinically indicatedPerformed at: [facility] [place] [id number] Director: Jennyfer De La Torre MD, Phone: [phone] Stool Calprotectin 140 ug/g High 0-120 [facility] Comment on above: Concentration Interp retation Follow-Up< 5 - 50 ug/g Normal None>50 -120 ug/g Borderline Re-evaluate in 4-6 weeks >120 ug/g Abnormal Repeat as clinically indicatedPerformed at: [facility] [address] [id number] Director: Jennyfer De La Torre MD, Phone: [phone] Carbon dioxide measurementOr dered By: Ephraim Sandoval on 11-08-2024 CO2 [Moles/Vol] 30.0 mmol/L 21.0-32.0 [facility] Chloride measurementOrdered By: Ephraim Sandoval on 11-08-2024 Chloride [Moles/Vol] 105 mmol/L 98-107 [facility] Comprehensive Metabolic Prof ilon 11-08-2024 Albumin [Mass/Vol] 3.4 g/dL Normal 3.2-5.0 [facility] Comment on above: Performed By: #### L 7000.0700 #### [facility] [address] [place], [address] Albumin/Globulin [Mass ratio] 0.9 {ratio} Normal 0.9-2.4 [facility] Comment on above: Performed By: #### L 7000.0700 #### [facility] [address] [place], [address] ALK P 64 U/L Normal 45-117 [facility] Comment on above: Performed By: #### L 0.0700 #### [facility] [address] [place], [address] ALT [Catalytic activity/Vol] 22 U/L Normal 16-61 [facility] Comment on above: Performed By: #### L 0.0700 #### [facility] [address] [place], [address] AST [Catalytic activity/Vol] 7 U/L Low 15-37 [facility] Comment on above: Performed By: #### L 0.0700 #### [facility] [address] [place], [address] Bilirubin [Mass/Vol] 0.40 mg/dL Normal 0.20-1.00 [facility] Comment on above: Result Comment: For patients on eltrombopag therapy, use of Dimension Bardolph TBIL is not recommended. Performed By: #### L 0.0700 #### [facility] [address] [place], [address] BUN/CRE 12.8 RATIO Normal 10-20 [facility] Comment on above: Performed By: #### L 7000.0700 #### [facility] [address] [place], [address] CA,Total 9.1 mg/dL Normal 8.5-10.1 [facility] Comment on above: Performed By: #### L 0.0700 #### [facility] [address] [place], [address] Chloride [Moles/Vol] 105 mmol/L Normal 98-107 [facility] Comment on above: Performed By: #### L 7000.0700 #### [facility] [address] [place], [address] CO2 [Moles/Vol] 30.0 mmol/L Normal 21.0-32.0 [facility] Comment on above: Performed By: #### L 7000.0700 #### [facility] [address] [place], [address] Creatinine [Mass/Vol] 1.17 mg/dL Normal 0.70-1.30 [facility] Comment on above: Result Comment: The validity of the calculated GFR GFRAA in patients over 70 years has not been determined. Clinical correlation is essential. Performed By: #### L 7000.0700 #### [facility] [address] [place], [address] EST GFR - AA 92 mL/min Normal >60 [facility] Comment on above: Result Comment: Afri can Nigerien GFR Calc Performed By: #### L 7000.0700 #### [facility] [address] [place], [address] GAP 5 Normal 5-15 [facility] Comment on above: Performed By: #### L 7000.0700 #### [facility] [address] [place], [address] GFR/1.73 sq M.predicted among non-blacks MDRD (S/P/Bld) [Vol rate/Area] 76 mL/min/{1.73_m2} Normal >60 [facility] Comment on above: Result Comment: Non- GFR Calc Performed By: #### L 7000.0700 #### [facility] [address] [place], [address] Globulin (S) [Mass/Vol] 3.9 g/dL Normal 2.2-4.2 [facility] Comment on above: Performed By: #### L 7000.0700 #### [facility] [address] [place], [address] Glucose [Mass/Vol] 113 mg/dL High 74-106 [facility] Comment on above: Result Comment: Fast ing Glucose result from 100 to 125 mg/dL suggests IMPAIRED HOMEOSTASIS per A.D.A. criteria. Performed By: #### L 7000.0700 #### [facility] [address] [place], [address] Potassium [Moles/Vol] 4.1 mmol/L Normal 3.5-5.1 [facility] Comment on above: Performed By: #### L 7000.0700 #### [facility] [address] [place], [address] Sodium [Moles/Vol] 140 mmol/L Normal 136-145 [facility] Comment on above: Performed By: #### L 7000.0700 #### [facility] [address] [place], [address] T PROT 7.3 g/dL Normal 6.4-8.2 [facility] Comment on above: Performed By: #### L 7000.0700 #### [facility] [address] [place], [address] Urea nitrogen [Mass/Vol] 15 mg/dL Normal 7-18 [facility] Comment on above: Performed By: #### L 7000.0700 #### [facility] [address] [place], [address] Eosinophil percentageOrdered By: Ephraim Sandoval on 11-08-2024 Eosinophils/100 WBC (Bld) 0.0 % 0-5 [facility] Erythrocyte Sed Rateon 11-08 SED RATE 25 mm/hr High 0-20 [facility] Comment on above: Performed By: #### L 7000.0700 #### [facility] [address] [place], [place], [address] SED RATE Normal 0-20 [facility] Comment on above: Result Comment: DOUP Performed By: #### L 101.9900, L7000.0700 #### [facility] [address] [place], [address] Erythrocyte distribution wid th (RBC) [Ratio]Ordered By: Ephraim Sandoval on 11-08-2024 Erythrocyte distribution width (RBC) [Entitic vol] 43.9 fL 35.1-43.9 [facility] Erythrocyte distribution wid th ratioOrdered By: Ephraim Sandoval on 11-08-2024 Erythrocyte distribution width (RBC) [Ratio] 17.9 % High 11.6-14.6 [facility] Erythrocyte distribution wid th standard deviationOrdered By: Ephraim Sandoval on 11-08-2024 Erythrocyte distribution width (RBC) [Ratio] 43.9 fl 35.1-43.9 [facility] Erythrocyte sedimentation ra teOrdered By: Ephraim Sandoval on 11-08-2024 ESR (Bld) [Velocity] 25 mm/h High 0-20 [facility] Estimated glomerular filtrat ion rate (GFR) AmericanOrdered By: Ephraim Sandoval on 11-08-2024 Estimated GFR (MDRD) Amer 92 mL/min >60 [facility] Comment on above: GFR Calc Glomerular filtration rate ( GFR) estimationOrdered By: Ephraim Sandoval on 11-08-2024 Estimated GFR (MDRD) Non-Af Amer 76 mL/min >60 [facility] Comment on above: Non- GFR Calc GFR/1.73 sq M.predicted among non-blacks MDRD (S/P/Bld) [Vol rate/Area] 76 mL/min/{1.73_m2} >60 [facility] Comment on above: Non- GFR Calc Glucose measurementOrdered B y: Ephraim Sandoval on 11-08-2024 Glucose [Mass/Vol] 113 mg/dL High 74-106 [facility] Comment on above: Fasting Glucose resu lt from 100 to 125 mg/dL suggests IMPAIRED HOMEOSTASIS per A.D.A. criteria. Hematocrit Auto (Bld) [Volum e fraction]Ordered By: Ephraim Sandoval on 11-08-2024 Hematocrit (Bld) [Volume fraction] 41.0 % 40-54 [facility] Hemoglobin measurementOrdere d By: Ephraim Sandoval on 11-08-2024 Hemoglobin (Bld) [Mass/Vol] 11.2 g/dL Low 13.0-16.5 [facility] Immature granulocytes/100 WB C Auto (Bld)Ordered By: Ephraim Sandoval on 11-08-2024 Immature granulocytes/100 WBC (Bld) 0.500 % 0.0-0.9 [facility] Comment on above: IG% - Immature Granu locytes (promyelocytes, myelocytes and metamyelocytes) > 1% indicates that a LEFT SHIFT is Present. Laboratory - Chemistry and C hemistry - challengeOrdered By: Ephraim Sandoval on 11-08-2024 AST [Catalytic activity/Vol] 7 U/L Low 15-37 [facility] Lymphocytes Auto (Unsp spec) [#/Vol]Ordered By: Ephraim Sandoval on 11-08-2024 Lymphocytes (Bld) [#/Vol] 0.31 10*3/uL Low 0.83-4.51 [facility] Lymphocytes/100 WBC Auto (Un sp spec)Ordered By: Ephraim Sandoval on 11-08-2024 Lymphocytes/100 WBC (Bld) 3.0 % Low 19-41 [facility] MCV (mean corpuscular volume ) determinationOrdered By: Ephraim Sandoval on 11-08-2024 MCV (RBC) [Entitic vol] 71.1 fL Low 80-94 [facility] Mean corpuscular hemoglobin (MCH) determinationOrdered By: Ephraim Sandoval on 11-08-2024 MCH (RBC) [Entitic mass] 19.4 pg Low 27.0-32.0 [facility] Mean corpuscular hemoglobin concentration (MCHC) determinationOrdered By: Ephraim Sandoval on 11-08-2024 MCHC (RBC) [Mass/Vol] 27.3 g/dL Low 32-36 [facility] Mean platelet volume determi nationOrdered By: Ephraim Sandoval on 11-08-2024 Platelet mean volume (Bld) [Entitic vol] 9.5 fL 6.2-12.0 [facility] Monocyte percentageOrdered B y: Ephraim Sandoval on 11-08-2024 Monocytes/100 WBC (Bld) 0.7 % 0-10 [facility] Neutrophil percentageOrdered By: Ephraim Sandoval on 11-08-2024 Neutrophils/100 WBC (Bld) 95.8 % High 47-70 [facility] Nucleated red blood cell per centageOrdered By: Ephraim Sandoval on 11-08-2024 Nucleated RBC/100 WBC (Bld) [Ratio] 0 % 0-5 [facility] Platelet countOrdered By: Ra kait Sandoval on 11-08-2024 Platelets (Bld) [#/Vol] 354 10*3/uL 150-450 [facility] Potassium measurementOrdered By: Ephraim Sandoval on 11-08-2024 Potassium [Moles/Vol] 4.1 mmol/L 3.5-5.1 [facility] RBC Auto (Bld) [#/Vol]Ordere d By: Ephraim Sandoval on 11-08-2024 RBC (Bld) [#/Vol] 5.77 10*6/uL 4.6-6.2 [facility] Serum anion gap measurementO rdered By: Ephraim Sandoval on 11-08-2024 Anion gap [Moles/Vol] 5 mmol/L 5-15 [facility] Serum globulin measurementOr dered By: Ephraim Sandoval on 11-08-2024 Globulin (S) [Mass/Vol] 3.9 g/dL 2.2-4.2 [facility] Serum or plasma alanine lopez otransferase (ALT) measurementOrdered By: Ephraim Sandoval on 11-08-2024 ALT [Catalytic activity/Vol] 22 U/L 16-61 [facility] Serum or plasma albumin deonna urement (mass/volume)Ordered By: Ephraim Sandoval on 11-08-2024 Albumin [Mass/Vol] 3.4 g/dL 3.2-5.0 [facility] Serum or plasma alkaline baron sphatase measurementOrdered By: Ephraim Sandoval on 11-08-2024 ALP [Catalytic activity/Vol] 64 U/L 45-117 [facility] Serum or plasma calcium deonna urement (mass/volume)Ordered By: Ephraim Sandoval on 11-08-2024 Calcium [Mass/Vol] 9.1 mg/dL 8.5-10.1 [facility] Serum or plasma creatinine m easurement (mass/volume)Ordered By: Ephraim Sandoval on 11-08-2024 Creatinine [Mass/Vol] 1.17 mg/dL 0.70-1.30 [facility] Comment on above: The validity of the calculated GFR & GFRAA in patients over 70 years has not been determined. Clinical correlation is essential. Serum or plasma urea nitroge n measurement (mass/volume)Ordered By: Ephraim Sandoval on 11-08-2024 Urea nitrogen [Mass/Vol] 15 mg/dL 7-18 [facility] Sodium levelOrdered By: Vanesa Palencia on 11-08-2024 Sodium [Moles/Vol] 140 mmol/L 136-145 [facility] Total proteinOrdered By: Valente Sandoval on 11-08-2024 Protein [Mass/Vol] 7.3 g/dL 6.4-8.2 [facility] White blood cell (WBC) count Ordered By: Ephraim Sandoval on 11-08-2024 WBC (Bld) [#/Vol] 10.3 10*3/uL 4.4-11.0 [facility] Gastroenterology Visit Repor ton 11-07-2024 Gastroenterology Visit Report [facility] [address] [place] [address] OFFICE VISIT Date of Service: 11/07/24 MR#: [id number] Acct: [id number] Name: PRABHU,HERBIE NIKOLAY Rep #: [id number] : 1990 Provider: Ephraim Sandoval DO Age/Sex: 33/M [facility] [place] Status: Signed Intake Vital Signs 08/14/24 10:54 Height 6 ft 1 in Weight: 285 lb BMI 37.5 BP 127/79 H Blood Pressure Location Rt brachial Position Sitting Respiration 14 Pulse 72 Pulse Source Monitor Temp 97.9 F Temp Source Temporal Pulse Oximetry (%) 93 Oxygen Delivery Method room air Intake Visit Reasons: 3 M FU/STELARA INJ Chief Complaint: f/u Allergies No Known Allergies Allergy (Verified 07/18/24 13:30) PFSH Medical History Wears glasses Depression Autism Non-smoker Social History (Updated 06/03/23 @ 15:[address] Sandro Dey, DO) Smoking Status: Never smoker alcohol intake: never substance use type: does not use HPI HPI Chief Complaint: f/u Details: HERBIE KLEIN, is a 33 M who presents to the office today for follow up. PMH autism spectrum high-functioning. *[facility] hospitalization 06.03.23-06.06.23 for management of anemia with chronic management of autism and depression. ? Biochemical ESR, GA(H717)ME, ANCA, celiac, hepatitis without pertinent abnormality. ? Hgb L7.5, CRP H108, TB+, Crohn???s (apANCA, ACCA) CT abd/pel 06.05.23 hepatomegaly with fatty infiltration; wall thickening of TI, ICValve, ascending colon and descending/sigmoid/rectu m with stranding consistent with acute exacerbation of Crohn???s ? EGD and colonoscopy 06.05.23 EGD mucosal changes EOE, Savary 42F; medium hiatal hernia; medium polypoid pyloric mass, non-necrotizing granulomatous inflammation; duodenitis. Colonoscopy hemorrhoid; rectum through splenic flexure inflammation with aphthous ulcerations. Acute colitis with cryptitis, crypt abscesses, glandular distortion, granulation and fibrinopurulent material Contact 06.15.23 to discuss results and workup need. If repeat TB and/or CXR are positive needs referral to infectious disease. Mother voiced understanding regarding workup and needs. Biochemical CBC (hgb L8.2/anemia), haptoglobin, coag, CMP (calcium L7.7), LFT, LDH, A1c, STEPHANI, AFP, ceruloplasmin, ammonia, ferritin, copper, IGLESIA comp, ASM, AMA, HIV, TB without pertinent abnormality ? ESR H34, CRP H5.18 ? CXR 06.15.23 hyperinflation of lungs consistent with COPD. No evidence of TB US/elastography 06.22.23 hepatic measurement 17.3, fatty infiltration, stiffness 6.6kPa MREnterography 07.04.23 multiple small bowel loops at TI with circumferential wall thickening with mucosal hyperenhancement; moderate to severe wall thickening of transverse, descending, sigmoid and rectum with mucosal hyperenhancement. OV 3..24 mother reports she is not observing as much urgency with BM and feels the frequency has reduced. OV 7..24 pt reports that he is feeling well overall and denies GI symptoms of concern at this time. Pt reports 2 soft bm per day; occasional blood when he wipes. Mother reports that pt has me ntioned feeling better on the Q4W dosing. OV 10.24 Pt has been doing well. He has no GI symptoms or concerns today. His mother has questions regarding his prednisone. OV 2..25 pt reports that he is feeling well overall and denies GI symptoms of concern at this time. Pt's mother has questions about lab work and prednisone dosage. Pt continues with Q4W stelara dosing; injection given today at visit. ESR/CRP Calp/Lact Serum/ab TB 06.06.23 18/108 --/-- --/-- + CXR neg 06.15.23 34/5.18 --/-- --/-- neg 07.21.23 --/-- --/-- --/-- -- hgb L8.2. Haptoglobin, ceruloplasmin, STEPHANI, AFP, copper, ASM without pertinent abnormality 11.29.23 Stelara infusion 3.14.24 46 / 33.6 4920 / + pend -- Iron L45, ferritin L17 TIBC, GAME, KELLEY WNL 5.13.24 60 / 64.40 6220 / + 0.6 / <40 -- Stelara Q4 weeks 8.1.24 9 / <2.9 1540 / -- 4.6 / neg -- 10.23.24 15 / <2.9 823 / -- -- / -- -- 12.18.24 22 / <2.9 248 / -- 11 / neg -- ROS Const Constitutional: No fatigue, fever(s) or weight change ENT ENT: No difficulty swallowing Gastro GI: No abdominal pain, belching, bloating, change in bowel habits, change in stool character, coffee ground emesis, constipation, cramping, diarrhea, heartburn, difficulty swallowing, feeling full early, excessive flatus, incontinent of stools, Vomiting blood/hematemesis, Blood in stool, loose stools, Black,tarry stools, nausea/dyspepsia, pain with swallowing, vomiting or other Musc Musculoskeletal: No joint pain Skin Skin: No yellowing of the eye or itchy eye (more content not included)... Normal [facility] Office Visit Reporton 2024 Office Visit Report [facility] [address] [place] [address] OFFICE VISIT Date of Service: 10/10/24 MR#: [id number] Acct: [id number] Patient: HERBIE KLEIN Rep #: [id number] : 1990 Provider: Ephraim Sandoval DO Age/Sex: 33/M [facility] Status: Signed Intake Vital Signs 08/14/24 10:54 Height 6 ft 1 in Weight: 285 lb BMI 37.5 BP 127/79 H Blood Pressure Location Rt brachial Position Sitting Respiration 14 Pulse 72 Pulse Source Monitor Temp 97.9 F Temp Source Temporal Pulse Oximetry (%) 93 Oxygen Delivery Method room air Intake Visit Reasons: STELARA INJ Chief Complaint: f/u Allergies No Known Allergies Allergy (Verified 07/18/24 13:30) Office Procedures Injections Procedure performed by: Rosemary Jarrell Lot number: [id number] Transmission Systems Operator: KAICORE date: 01/15/27 Dose of injection: 90mg Site of injection: Sub-Q (Right arm) Medication Given: Yes Is this a patient provided medication?: Yes 10/10/24 162 Date Ephraim Dobbins Signature: Date (if applicable) CC: Normal [facility] Miscellaneous Lab Procedure 2on 10-01-2024 [facility] LAB TEST 2 Normal [facility] Comment on above: Order Comment: [facility] rp [id number] Result Comment: Scan jackie image report available in EMR AMENDED REPORT 10/01/24 0715 [facility] LAB TEST 2 previously reported as: SEE PATHOLOGY REPORT Performed By: #### L 7000.0700 #### [facility] [address] [place], [address] Office Visit Reporton 2023 Office Visit Report [facility] [address] [place] [address] OFFICE VISIT Date of Service: 09/12/24 MR#: [id number] Acct: [id number] Patient: HERBIE KLEIN Rep #: [id number] : 1990 Provider: Ephraim Sandoval DO Age/Sex: 33/M [place] [facility] [place]: Signed Intake Vital Signs 09/21/23 10:41 08/14/24 10:54 Height 6 ft 1 in 6 ft 1 in Intake Visit Reasons: STALARA INJ Chief Complaint: f/u Allergies No Known Allergies Allergy (Verified 07/18/24 13:30) Nursing Note Patient is in the office today for Stelera injection. Stelera serial# [id number] expiration date 11/2026. Administered in right upper arm. 09/13/24 0803 Date Ephraim Friend DO Clare Signature: Date (if applicable) CC: Normal [facility] Calprotectin, Stoolon [address] 249 ug/g Abnormal 0-120 [facility] Comment on above: Result Comment: Conc entration Interpretation Follow-Up < 5 - 50 ug/g Normal None >50 -120 ug/g Borderline Re-evaluate in 4-6 weeks >120 ug/g Abnormal Repeat as clinically indicated Performed at: - [facility] [id number] [employer] Pump Operator: Jennyfer De La Torre MD, Phone: [phone] Performed By: #### L 7000.0700 #### [facility] [address] [place], [place], [id number] C-reactive protein measureme nt by high sensitivity methodOrdered By: Michelle Luevano on 09-04-2024 C-Reactive Protein Extended Range < 2.90 mg/L 0.0-3.0 [facility] Comment on above: C-Reactive Protein ( CRP) provides useful information for thediagnosis, therapy and monitoring of inflammatory processesand associated diseases. For the evaluation of Relative Riskfor Cardiovascular Disease, a High Sensitivity CRP (HSCRP)should be ordered. CRPon 09-04-2024 C-REACTIVE PROT < 2.90 Normal 0.0-3.0 [facility] Comment on above: Result Comment: C-Re active Protein (CRP) provides useful information for the diagnosis, therapy and monitoring of inflammatory processes and associated diseases. For the evaluation of Relative Risk for Cardiovascular Disease, a High Sensitivity CRP (HSCRP) should be ordered. Performed By: #### L 7000.0700 #### [facility] [address] [place], [address] Calprotectin stoolOrdered By : Michelle Luevano on 09-04-2024 Stool Calprotectin 249 ug/g High 0-120 [facility] Comment on above: Concentration Interp retation Follow-Up< 5 - 50 ug/g Normal None>50 -120 ug/g Borderline Re-evaluate in 4-6 weeks >120 ug/g Abnormal Repeat as clinically indicatedPerformed at: - [facility] [id number] Director: Jennyfer De La Torre MD, Phone: [phone] Erythrocyte Sed Rateon 09-04 SED RATE 22 mm/hr High 0-20 [facility] Comment on above: Performed By: #### L 7000.0700 #### [facility] [address] [place], [address] Erythrocyte sedimentation ra teOrdered By: Michelle Luevano on 09-04-2024 ESR (Bld) [Velocity] 22 mm/h High 0-20 [facility] Miscellaneous procedureOrder ed By: Michelle Luevano on 09-04-2024 Miscellaneous Test See comment [facility] Comment on above: Scanned image report available in EMRPrevious reported result: SEE PATHOLOGY REPORT Edited by: BHARTI on 10/01/24:0715 AMENDED REPORT 10/01/24 0715 [facility] LAB TEST 2 previously reported as: SEE PATHOLOGY REPORT Office Visit Reporton 2023 Office Visit Report [facility] [address] [place] [address] OFFICE VISIT Date of Service: 08/14/24 MR#: [id number] Acct: [id number] Patient: HERBIE KLEIN Rep #: [id number] : 1990 Provider: Ephraim Sandoval DO Age/Sex: 33/M Location: [facility] [place] Status: Signed Intake Vital Signs 09/21/23 10:41 08/14/24 10:54 Height 6 ft 1 in 6 ft 1 in Weight: 285 lb BMI 37.5 BP 127/79 H Blood Pressure Location Rt brachial Position Sitting Respiration 14 Pulse 72 Pulse Source Monitor Temp 97.9 F Temp Source Temporal Pulse Oximetry (%) 93 Oxygen Delivery Method room air Intake Visit Reasons: STELARA Chief Complaint: f/u Accompanied by: Mother Is patient in pain?: No Allergies No Known Allergies Allergy (Verified 07/18/24 13:30) Medications ???Medication ???Instructions ???Recorded ???Confirmed ???Type sertraline 100 mg tablet 100 mg PO DAILY Depression 06/03/23 08/14/24 History polysaccharide iron complex 150 mg 150 mg PO DAILY #60 caps 06/06/23 08/14/24 Rx iron capsule (Ferric x-150) multivitamin (Daily Multi-Vitamin 1 tab PO DAILY 07/03/23 08/14/24 History tablet) ustekinumab 130 mg/26 mL 390 mg (78 mL) IV ONCE 07/26/23 08/14/24 Rx intravenous solution (Stelara) ustekinumab 90 mg/mL subcutaneous 90 mg subcut Q4W #1 mL 02/22/24 08/14/24 Rx syringe (Stelara) prednisone 20 mg tablet 40 mg (2 x 20 mg) PO DAILY #60 tabs 04/26/24 08/14/24 Rx Nurse's Note: Pt tolerated well. Pt brought in medication. Office Procedures Injections Stelara: Procedure performed by: Marisa Abel Site of injection: Sub-Q (right arm) Dose of injection: 90 mg/ml, 1 syringe subq every 4 weeks. Comments: Pt tolerated well. Pt brought in medication. Next inj scheduled 09/12/24. 08/14/24 1438 Date Ephraim Friend DO Cosigner Signature: Date (if applicable) CC: Normal [facility] Absolute lymphocyte countOrd ered By: Ephraim Friend on 11-30-2023 Lymphocytes Auto (Unsp spec) [#/Vol] 0.66 10*3/uL 0.83-4.51 [facility] Albumin Elph [Mass/Vol]Order ed By: Ephraim Sandoval on 11-30-2023 Albumin [Mass/Vol] 3.6 g/dL 2.9-4.4 [facility] Automated lymphocyte count a s percentage of total leukocytesOrdered By: Ephraimandrea Sandoval on 11-30-2023 Lymphocytes/100 WBC Auto (Unsp spec) 11.3 % 19-41 [facility] Basophil percentageOrdered B y: Ephraimkhalida Sandoval on 11-30-2023 Basophils/100 WBC (Bld) 0.5 % 0-1 [facility] Bilirubin [Mass/Vol] 0.40 mg/dL 0.20-1.00 [facility] Comment on above: For patients on eltr ombopag therapy, use of Dimension Bardolph TBIL is not recommended. Chloride [Moles/Vol] 104 mmol/L 98-107 [facility] Eosinophils/100 WBC (Bld) 3.1 % 0-5 [facility] Glucose [Mass/Vol] 90 mg/dL 74-106 [facility] Hemoglobin (Bld) [Mass/Vol] 13.0 g/dL 13.0-16.5 [facility] LDH [Catalytic activity/Vol] 158 U/L 87-241 [facility] Monocytes/100 WBC (Bld) 10.1 % 0-10 [facility] Neutrophils (Bld) [#/Vol] 4.4 10*3/uL 2.0-7.7 [facility] Neutrophils/100 WBC (Bld) 74.7 % 47-70 [facility] Potassium [Moles/Vol] 4.0 mmol/L 3.5-5.1 [facility] Protein [Mass/Vol] 8.0 g/dL 6.4-8.2 [facility] Sodium [Moles/Vol] 137 mmol/L 136-145 [facility] WBC (Bld) [#/Vol] 5.9 10*3/uL 4.4-11.0 [facility] Determination of erythrocyte mean corpuscular volume (MCV)Ordered By: Ephraimkhalida Sandoval on 11-30-2023 MCV (RBC) [Entitic vol] 78.9 fL 80-94 [facility] Erythrocyte distribution wid th ratioOrdered By: Ephraim Sandoval on 11-30-2023 Erythrocyte distribution width (RBC) [Ratio] 14.5 % 11.6-14.6 [facility] Erythrocyte distribution wid th standard deviationOrdered By: Ephraim Sandoval on 11-30-2023 Erythrocyte distribution width (RBC) [Entitic vol] 41.1 fL 35.1-43.9 [facility] Erythrocyte sedimentation ra teOrdered By: Ephraim Sandoval on 11-30-2023 ESR (Bld) [Velocity] 46 mm/h 0-20 [facility] Hematocrit Auto (Bld) [Volum e fraction]Ordered By: Ephraim Sandoval on 11-30-2023 Hematocrit (Bld) [Volume fraction] 43.5 % 40-54 [facility] Hemoglobin in reticulocytes (mass per reticulocyte)Ordered By: Ephraim Sandoval on 11-30-2023 Hemoglobin (Reticulocytes) [Entitic mass] 27.3 pg 30-35 [facility] Immature granulocytes/100 WB C Auto (Bld)Ordered By: Ephraim Sandoval on 11-30-2023 Immature granulocytes/100 WBC (Bld) 0.300 % 0.0-0.9 [facility] Comment on above: IG% - Immature Granu locytes (promyelocytes, myelocytes and metamyelocytes) > 1% indicates that a LEFT SHIFT is Present. Interpretation of serum or p lasma protein pattern by immunofixation (narrative resultOrdered By: Ephraim Sandoval on 11-30-2023 Protein Fractions Immunofixation Nils [Interp] Not Observed g/dL Not Observed [facility] Iron measurement (mass/mass) Ordered By: Ephraim Sandoval on 11-30-2023 Iron (Unsp spec) [Mass/Mass] 45 ug/dL 65-175 [facility] Laboratory - Chemistry and C hemistry - challengeOrdered By: Ephraim Sandoval on 11-30-2023 Albumin/Globulin [Mass ratio] 0.7 {ratio} 0.9-2.4 [facility] ALP [Catalytic activity/Vol] 108 U/L 45-117 [facility] ALT [Catalytic activity/Vol] 20 U/L 16-61 [facility] CO2 [Moles/Vol] 26.0 mmol/L 21.0-32.0 [facility] Ferritin [Mass/Vol] 17 ng/mL 26-388 [facility] Urea nitrogen/Creatinine [Mass ratio] 16.5 mg/mg 10-20 [facility] Laboratory - Hematology and Cell countsOrdered By: Ephraim Sandoval on 11-30-2023 MCH (RBC) [Entitic mass] 23.6 pg 27.0-32.0 [facility] MCHC (RBC) [Mass/Vol] 29.9 g/dL 32-36 [facility] Nucleated RBC/100 WBC (Bld) [Ratio] 0 % 0-5 [facility] Platelet mean volume (Bld) [Entitic vol] 9.4 fL 6.2-12.0 [facility] Platelets (Bld) [#/Vol] 361 10*3/uL 150-450 [facility] No Panel InformationOrdered By: Ephraim Sandoval on 11-30-2023 Addendum Document Comment . [facility] Comment on above: Protein electrophore sis scan will follow via computer,mail, or sales representative electric service delivery. C-Reactive Protein Extended Range 33.60 mg/L 0.0-3.0 [facility] Comment on above: C-Reactive Protein ( CRP) provides useful information for thediagnosis, therapy and monitoring of inflammatory processesand associated diseases. For the evaluation of Relative Riskfor Cardiovascular Disease, a High Sensitivity CRP (HSCRP)should be ordered. Estimated GFR (MDRD) Amer 116 mL/min >60 [facility] Comment on above: GFR Calc Estimated GFR (MDRD) Non-Af Amer 96 mL/min >60 [facility] Comment on above: Non- GFR Calc Haptoglobin 237 mg/dL 17-317 [facility] Comment on above: Performed at: [facility] [employer] [address] [id number] Director: Chavo Bañuelos PhD, Phone: [phone] Immature Reticulocyte Fraction 9.40 % 3.00-15.90 [facility] Immunoglobulin M 102 mg/dL 20-172 [facility] Total Iron Binding Capacity 359 ug/dL 250-450 [facility] RBC Auto (Bld) [#/Vol]Ordere d By: Ephraim Sandoval on 11-30-2023 RBC (Bld) [#/Vol] 5.51 10*6/uL 4.6-6.2 [facility] Reticulocytes Auto (Bld) [#/ Vol]Ordered By: Ephraim Sandoval on 11-30-2023 Reticulocytes/100 RBC (Bld) 1.02 % 0.5-1.5 [facility] Serum ulfal-0-fhreotsu measu rement by electrophoresisOrdered By: Ephraim Sandoval on 11-30-2023 Alpha 1 globulin Elph [Mass/Vol] 0.3 g/dL 0.0-0.4 [facility] Alpha 1 globulin Elph [Mass/Vol] 1.0 g/dL 0.4-1.0 [facility] Serum globulin measurement ( mass/volume)Ordered By: Ephraim Sandoval on 11-30-2023 Globulin (S) [Mass/Vol] 3.8 g/dL 2.2-3.9 [facility] Serum or plasma IgA measurem ent (mass/volume)Ordered By: Ephraim Sandoval on 11-30-2023 IgA [Mass/Vol] 531 mg/dL 90-386 [facility] Serum or plasma IgG measurem ent (mass/volume)Ordered By: Ephraim Sandoval on 11-30-2023 IgG [Mass/Vol] 1310 mg/dL 603-1613 [facility] Serum or plasma beta globuli n measurement by electrophoresis (mass/volume)Ordered By: Ephraim Sandoval on 11-30-2023 Beta globulin Elph [Mass/Vol] 1.2 g/dL 0.7-1.3 [facility] Serum or plasma calcium deonna urement (mass/volume)Ordered By: Ephraim Sandoval on 11-30-2023 Calcium [Mass/Vol] 8.7 mg/dL 8.5-10.1 [facility] Serum or plasma creatinine m easurement (mass/volume)Ordered By: Ephraim Sandoval on 11-30-2023 Creatinine [Mass/Vol] 0.97 mg/dL 0.70-1.30 [facility] Comment on above: The validity of the calculated GFR & GFRAA in patients over 70 years has not been determined. Clinical correlation is essential. Serum or plasma gamma globul in measurement by electrophoresis (mass/volume)Ordered By: Ephraim Sandoval on 11-30-2023 Gamma globulin Elph [Mass/Vol] 1.3 g/dL 0.4-1.8 [facility] Serum or plasma immunoelectr ophoresis interpretation (nominal result)Ordered By: Ephraim Sandoval on 11-30-2023 Interpretation IEP [Interp] Comment . [facility] Comment on above: No monoclonality det ected. Serum or plasma urea nitroge n measurement (mass/volume)Ordered By: Ephraim Sandoval on 11-30-2023 Urea nitrogen [Mass/Vol] 16 mg/dL 7-18 [facility] Stool lactoferrin detection by immunoassayOrdered By: Ephraim Sandoval on 11-30-2023 Lactoferrin IA Ql (Stl) [facility] Thin prep Papanicolaou smear with manual screeningOrdered By: Ephraim Sandoval on 11-30-2023 Thin prep Papanicolaou smear with manual screening 3.3 g/dL 3.2-5.0 [facility] Thin prep Papanicolaou smear with manual screening 21 U/L 15-37 [facility] Thin prep Papanicolaou smear with manual screening 7 5-15 [facility] Thin prep Papanicolaou smear with manual screening 1.0 0.7-1.7 [facility] Total protein bloodOrdered B y: Ephraim Sandoval on 11-30-2023 Protein [Mass/Vol] 7.4 g/dL 6.0-8.5 [facility] Blood hemoglobin measurement (mass/volume)Ordered By: Ephraim Sandoval on 07-21-2023 Hemoglobin (Bld) [Mass/Vol] 8.2 g/dL 13.0-16.5 [facility] Hematocrit Auto (Bld) [Volum e fraction]Ordered By: Ephraim Sandoval on 07-21-2023 Hematocrit (Bld) [Volume fraction] 30.2 % 40-54 [facility] Absolute lymphocyte countOrd ered By: Ephraim Sandoval on 06-15-2023 Lymphocytes Auto (Unsp spec) [#/Vol] 0.27 10*3/uL 0.83-4.51 [facility] Basophil percentageOrdered B y: Ephraim Sandoval on 06-15-2023 Ammonia (P) [Moles/Vol] 17.0 umol/L 11-32 [facility] Basophil percentage < 0.2 AI 0.0-0.9 [facility] Basophils/100 WBC (Bld) 0.0 % 0-1 [facility] Bilirubin [Mass/Vol] 0.20 mg/dL 0.20-1.00 [facility] Comment on above: For patients on eltr ombopag therapy, use of Dimension Bardolph TBIL is not recommended. Chloride [Moles/Vol] 106 mmol/L 98-107 [facility] Eosinophils/100 WBC (Bld) 0.0 % 0-5 [facility] Glucose [Mass/Vol] 163 mg/dL 74-106 [facility] Comment on above: Fasting Glucose resu lt greater than or equal to 126 mg/dL suggests DIABETES MELLITUS per A.D.A. criteria. LDH [Catalytic activity/Vol] 170 U/L 87-241 [facility] Neutrophils (Bld) [#/Vol] 4.4 10*3/uL 2.0-7.7 [facility] Neutrophils/100 WBC (Bld) 89.8 % 47-70 [facility] Potassium [Moles/Vol] 3.9 mmol/L 3.5-5.1 [facility] Protein [Mass/Vol] 6.2 g/dL 6.4-8.2 [facility] Sodium [Moles/Vol] 138 mmol/L 136-145 [facility] WBC (Bld) [#/Vol] 4.9 10*3/uL 4.4-11.0 [facility] Blood erythrocytes count (nu mber/volume)Ordered By: Ephraim Sandoval on 06-15-2023 RBC (Bld) [#/Vol] 4.03 10*6/uL 4.6-6.2 [facility] Blood hemoglobin measurement (mass/volume)Ordered By: Ephraim Sandoval on 06-15-2023 Hemoglobin (Bld) [Mass/Vol] 8.2 g/dL 13.0-16.5 [facility] Blood lymphocytes/100 leukoc ytesOrdered By: Ephraim Sandoval on 06-15-2023 Lymphocytes/100 WBC (Bld) 5.5 % 19-41 [facility] Blood manual differential co mment interpretation (narrative result)Ordered By: Ephraim Sandoval on 06-15-2023 Manual differential comment Nils (Bld) [Interp] SEE COMMENT [facility] Comment on above: LYMPHOPENIA NOTED Blood monocytes/100 leukocyt esOrdered By: Ephraim Sandoval on 06-15-2023 Monocytes/100 WBC (Bld) 4.1 % 0-10 [facility] Blood platelet adequacy dete ction by light microscopyOrdered By: Ephraim Sandoval on 06-15-2023 Platelets LM Ql (Bld) MOD INC ADEQ [facility] Blood platelet mean volumeOr dered By: Ephraim Sandoval on 06-15-2023 Platelet mean volume (Bld) [Entitic vol] 8.7 fL 6.2-12.0 [facility] Blood polychromasia detectio n by light microscopyOrdered By: Ephraim Sandoval on 06-15-2023 Polychromasia LM Ql (Bld) RARE [facility] Determination of erythrocyte mean corpuscular volume (MCV)Ordered By: Ephraim Sandoval on 06-15-2023 MCV (RBC) [Entitic vol] 76.2 fL 80-94 [facility] Erythrocyte sedimentation ra teOrdered By: Ephraim Sandoval on 06-15-2023 ESR (Bld) [Velocity] 34 mm/h 0-20 [facility] HIV 1 and HIV-2 antibody ass ay with HIV-1 p24 antigen detectionOrdered By: Ephraim Sandoval on 06-15-2023 HIV 1+2 Ab+HIV1 p24 Ag IA Ql Non-Reactive Nonreactive [facility] Hematocrit Auto (Bld) [Volum e fraction]Ordered By: Ephraim Sandoval on 06-15-2023 Hematocrit (Bld) [Volume fraction] 30.7 % 40-54 [facility] Hypochromatic red blood cell detectionOrdered By: Ephraim Sandoval on 06-15-2023 Hypochromia Ql (Bld) 1+ [facility] INR in Blood by Coagulation assayOrdered By: Ephraim Sandoval on 06-15-2023 INR Coag (Bld) [Relative time] 1.0 {INR} [facility] Laboratory - Chemistry and C hemistry - challengeOrdered By: Ephraim Sandoval on 06-15-2023 ALP [Catalytic activity/Vol] 90 U/L 45-117 [facility] ALT [Catalytic activity/Vol] 42 U/L 16-61 [facility] CO2 [Moles/Vol] 28.0 mmol/L 21.0-32.0 [facility] Globulin (S) [Mass/Vol] 4.1 g/dL 2.2-4.2 [facility] Urea nitrogen/Creatinine [Mass ratio] 15.4 mg/mg 10-20 [facility] Laboratory - CoagulationOrde red By: Ephraim Sandoval on 06-15-2023 PT Coag (PPP) [Time] 13.4 s 11.7-14.9 [facility] Laboratory - Hematology and Cell countsOrdered By: Ephraim Sandoval on 06-15-2023 Anisocytosis Ql (Bld) 1+ [facility] Erythrocyte distribution width (RBC) [Entitic vol] 79.3 fL 35.1-43.9 [facility] Erythrocyte distribution width (RBC) [Ratio] 31.2 % 11.6-14.6 [facility] Immature granulocytes/100 WBC (Bld) 0.600 % 0.0-0.9 [facility] Comment on above: IG% - Immature Granu locytes (promyelocytes, myelocytes and metamyelocytes) > 1% indicates that a LEFT SHIFT is Present. MCH (RBC) [Entitic mass] 20.3 pg 27.0-32.0 [facility] Nucleated RBC/100 WBC (Bld) [Ratio] 0 % 0-5 [facility] MCHC Auto (RBC) [Mass/Vol]Or dered By: Ephraim Sandoval on 06-15-2023 MCHC (RBC) [Mass/Vol] 26.7 g/dL 32-36 [facility] No Panel InformationOrdered By: Ephraim Sandoval on 06-15-2023 Centromere B Antibody <0.2 AI 0.0-0.9 [facility] Ceruloplasmin 20.2 mg/dL 16.0-31.0 [facility] Estimated GFR (MDRD) Amer 115 mL/min >60 [facility] Comment on above: GFR Calc Estimated GFR (MDRD) Non-Af Amer 95 mL/min >60 [facility] Comment on above: Non- GFR Calc Haptoglobin 237 mg/dL 17-317 [facility] Comment on above: Performed at: [facility] [employer] [address] [id number] Director: Chavo Bañuelos PhD, Phone: [phone] at: - [facility] [address] [id number] Director: Jennyfer De La Torre MD, Phone: [phone] BICYCLE FITTER Antibody <0.2 AI 0.0-0.9 [facility] Ovalocyte detectionOrdered B y: Ephraim Sandoval on 06-15-2023 Ovalocytes LM Ql (Bld) RARE [facility] Platelets bldOrdered By: Valente sanchez Friend on 06-15-2023 Platelets (Bld) [#/Vol] 500 10*3/uL 150-450 [facility] Qualitative QuantiFERON-TB g old in tube testOrdered By: Ephraim Sandoval on 06-15-2023 M. tuberculosis tuberculin stim IFN-g Ql (Bld) 0.02 IU/mL . [facility] RBC morphologyOrdered By: Ra carballo Friend on 06-15-2023 RBC morphology finding Nom (Bld) N CHROM NORMAL NORM C&C [facility] Serum DNA double strand anti body assay (units/volume)Ordered By: Ephraim Sandoval on 06-15-2023 DNA double strand Ab Qn (S) [IU]/mL 0-9 [facility] Comment on above: Negative <5 Equivoca l 5 - 9 Positive >9 Serum Lois-1 antibody assay (u nits/volume)Ordered By: Ephraim Sandoval on 06-15-2023 Lois-1 extractable nuclear Ab Qn (S) <0.2 AI 0.0-0.9 [facility] Serum Scl-70 extractable nuc lear antibody assay (units/volume)Ordered By: Ephraim Sandoval on 06-15-2023 SCL-70 extractable nuclear Ab Qn (S) <0.2 AI 0.0-0.9 [facility] Serum Cole extractable nucl ear antibody detectionOrdered By: Ephraim Sandoval on 06-15-2023 Cole extractable nuclear Ab Ql (S) <0.2 AI 0.0-0.9 [facility] Serum mitochondria antibody detectionOrdered By: Ephraim Sandoval on 06-15-2023 Mitochondria Ab Ql (S) <20.0 Units 0.0-20.0 [facility] Comment on above: Negative 0.0 - 20.0 Equivocal 20.1 - 24.9 Positive >24.9Mitochondrial (M2) Antibodies are found in 90-96% ofpatients with primary biliary cirrhosis.Performed at: [facility] [id number] Director: Chavo Bañuelos PhD, Phone: [phone] Serum or plasma C reactive p rotein measurement (mass/volume)Ordered By: Ephraim Sandoval on 06-15-2023 CRP [Mass/Vol] 5.18 mg/L 0.0-3.0 [facility] Comment on above: C-Reactive Protein ( CRP) provides useful information for thediagnosis, therapy and monitoring of inflammatory processesand associated diseases. For the evaluation of Relative Riskfor Cardiovascular Disease, a High Sensitivity CRP (HSCRP)should be ordered. Serum or plasma actin IgG an tibody assay (units/volume)Ordered By: Ephraim Sandoval on 06-15-2023 Actin IgG Qn 14 Units 0-19 [facility] Comment on above: Negative 0 - 19 Weak positive 20 - 30 Moderate to strong positive >30 Actin Antibodies are found in 52-85% of patients with autoimmune hepatitis or chronic active hepatitis and in 22% of patients with primary biliary cirrhosis. Serum or plasma albumin deonna urement (mass/volume)Ordered By: Ephraim Sandoval on 06-15-2023 Albumin [Mass/Vol] 2.1 g/dL 3.2-5.0 [facility] Serum or plasma albumin/glob ulin mass ratioOrdered By: Ephraim Sandvoal on 06-15-2023 Albumin/Globulin [Mass ratio] 0.5 {ratio} 0.9-2.4 [facility] Serum or plasma natnx-5-miik protein tumor marker measurement (units/volume)Ordered By: Ephraim Sandoval on 06-15-2023 AFP.tumor marker Qn 4.1 ng/mL 0.0-6.9 [facility] Comment on above: [employer] El ectrochemiluminescence Immunoassay(ECLIA)Values obtained with different assay methods or kits cannotbe used interchangeably. Results cannot be interpreted asabsolute evidence of the presence or absence of malignantdisease.This test is not interpretable in females. Serum or plasma angiotensin converting enzyme measurement (enzymatic activity/volume)Ordered By: Ephraim Sandoval on 06-15-2023 Angiotensin converting enzyme [Catalytic activity/Vol] 38 U/L 14-82 [facility] Serum or plasma calcium deonna urement (mass/volume)Ordered By: Ephraim Sandoval on 06-15-2023 Calcium [Mass/Vol] 7.7 mg/dL 8.5-10.1 [facility] Serum or plasma creatinine m easurement (mass/volume)Ordered By: Ephraim Sandoval on 06-15-2023 Creatinine [Mass/Vol] 0.98 mg/dL 0.70-1.30 [facility] Comment on above: The validity of the calculated GFR & GFRAA in patients over 70 years has not been determined. Clinical correlation is essential. Serum or plasma ferritin behzad surement (mass/volume)Ordered By: Ephraim Sandoval on 06-15-2023 Ferritin [Mass/Vol] 91 ng/mL 26-388 [facility] Serum or plasma urea nitroge n measurement (mass/volume)Ordered By: Ephraim Sandoval on 06-15-2023 Urea nitrogen [Mass/Vol] 15 mg/dL 7-18 [facility] Thin prep Papanicolaou smear with manual screeningOrdered By: Ephraim Sandoval on 06-15-2023 Thin prep Papanicolaou smear with manual screening 1+ [facility] Thin prep Papanicolaou smear with manual screening 17 U/L 15-37 [facility] Thin prep Papanicolaou smear with manual screening 4 5-15 [facility] Thin prep Papanicolaou smear with manual screening 92 ug/dL 69-132 [facility] Comment on above: Detection Limit = 5 Thin prep Papanicolaou smear with manual screening Comment . [facility] Comment on above: QuantiFERON-TB Gold Plus is a qualitative indirect test forM tuberculosis infection (including disease) and isintended for use in conjunction with risk assessment,radiography, and other medical and diagnostic evaluations.The QuantiFERON-TB Gold Plus result is determined bysubtracting the Nil value from either TB antigen (Ag)value. The Mitogen tube serves as a control for the test. Thin prep Papanicolaou smear with manual screening 0.02 IU/mL . [facility] Thin prep Papanicolaou smear with manual screening 0.01 IU/mL . [facility] Thin prep Papanicolaou smear with manual screening 1.81 IU/mL . [facility] Thin prep Papanicolaou smear with manual screening Negative Negative [facility] Comment on above: No response to M tub erculosis antigens detected.Infection with M tuberculosis is unlikely, but high riskindividuals should be considered for additional testing(ATS/IDSA/CDC Clinical Practice Guidelines, 2017). Thereference range is an Antigen minus Nil result of <0.35IU/mL.The specimen received for QuantiFERON testing was incubatedby the ordering institution. Specific procedures outlinedin our Directory of Services and in the package insert forthe QuantiFERON Gold (In Tube) test must be followed toenable for proper stimulation of cells for the productionof interferon gamma. Chemiluminescence immunoassaymethodology Whole blood hemoglobin A1c/t otal hemoglobin ratio (mass fraction)Ordered By: Ephraim Sandoval on 06-15-2023 HbA1c (Bld) [Mass fraction] 4.8 % 3.8-5.6 [facility] Comment on above: Normal < 5.7 % Predi abetic 5.7 - 6.4 % Diabetic >or= 6.5 % Please note range changes. .Auto Diffon 06-13-2023 Basophil, Absolute 0.0 10 3/mcL Normal 0.0-0.2 [facility] [place] Comment on above: Performed By: #### A DIFF, FE, ANEU, MORPH, GFR, CMP, CBC, FERR #### [place] [address] [address] Basophils/100 WBC (Bld) 0.4 % Normal 0.0-2.5 A [facility] ([place]) Comment on above: Performed By: #### A DIFF, FE, ANEU, MORPH, GFR, CMP, CBC, FERR #### [address] [address] Eosinophil, Absolute 0.0 10 3/mcL Normal 0.0-0.4 [facility] ([place]) Comment on above: Performed By: #### A DIFF, FE, ANEU, MORPH, GFR, CMP, CBC, FERR #### [address] [address] Eosinophils/100 WBC (Bld) 0.0 % Normal 0.0-7.0 [facility] ([place]) Comment on above: Performed By: #### A DIFF, FE, ANEU, MORPH, GFR, CMP, CBC, FERR #### [address] [address] Lymphocyte, Absolute 0.2 10 3/mcL Low 0.8-3.9 [facility] ([place]) Comment on above: Performed By: #### A DIFF, FE, ANEU, MORPH, GFR, CMP, CBC, FERR #### [address] [address] Lymphocytes/100 WBC (Bld) 3.5 % Low 10.0-50.0 [facility] ([place]) Comment on above: Performed By: #### A DIFF, FE, ANEU, MORPH, GFR, CMP, CBC, FERR #### [address] [address] Monocyte, Absolute 0.1 10 3/mcL Low 0.2-1.0 [facility] ([place]) Comment on above: Performed By: #### A DIFF, FE, ANEU, MORPH, GFR, CMP, CBC, FERR #### [address] [address] Monocytes/100 WBC (Bld) 1.3 % Low 1.7-13.0 [facility] ([place]) Comment on above: Performed By: #### A DIFF, FE, ANEU, MORPH, GFR, CMP, CBC, FERR #### [address] [address] Neutrophils/100 WBC (Bld) 94.8 % High 37.0-80.0 [facility] ([place]) Comment on above: Performed By: #### A DIFF, FE, ANEU, MORPH, GFR, CMP, CBC, FERR #### [address] [address] .GFRon 06-13-2023 GFR 126 ml/min/1.73sqm Normal [facility] ([place]) Comment on above: Result Comment: GFR Population [...] ANEU, MORPH, GFR, CMP, CBC, FERR #### [address] [address] GFR Non- 104 ml/min/1.73sqm Normal [facility] ([place] Comment on above: Result Comment: GFR Population [...] ANEU, MORPH, GFR, CMP, CBC, FERR #### [address] [address] .Morphon 06-13-2023 Anisocytosis Ql (Bld) 1+ Normal [facility] ([place]) Comment on above: Performed By: #### A DIFF, FE, ANEU, MORPH, GFR, CMP, CBC, FERR #### [place] [address] Microcytosis 2+ Normal [facility] ([place] Comment on above: Performed By: #### A DIFF, FE, ANEU, MORPH, GFR, CMP, CBC, FERR #### [place] [address] Ovalocytes 1+ Normal [facility] ([place] Comment on above: Performed By: #### A DIFF, FE, ANEU, MORPH, GFR, CMP, CBC, FERR #### [place] [address] Platelet Estimate Normal Normal [facility] ([place] Comment on above: Performed By: #### A DIFF, FE, ANEU, MORPH, GFR, CMP, CBC, FERR #### [place] [address] Poik 1+ Normal [facility] ([place] Comment on above: Performed By: #### A DIFF, FE, ANEU, MORPH, GFR, CMP, CBC, FERR #### [place] [address] RBC morphology finding Nom (Bld) See Below Normal [facility] ([place]) Comment on above: Performed By: #### A DIFF, FE, ANEU, MORPH, GFR, CMP, CBC, FERR #### [place] [address] .NEUABSon 06-13-2023 Neutrophil, Absolute 5.8 10 3/mcL Normal 2.9-6.2 [facility] ([place]) Comment on above: Performed By: #### A DIFF, FE, ANEU, MORPH, GFR, CMP, CBC, FERR #### [place] [address] CBCon 06-13-2023 Erythrocyte distribution width (RBC) [Ratio] 33.3 % High 11.5-14.5 [facility] ([place]) Comment on above: Performed By: #### A DIFF, FE, ANEU, MORPH, GFR, CMP, CBC, FERR #### [address] [address] Hematocrit (Bld) [Volume fraction] 28.4 % Low 42.0-52.0 [facility] ([place] Comment on above: Performed By: #### A DIFF, FE, ANEU, MORPH, GFR, CMP, CBC, FERR #### [address] [address] Hgb 8.6 G/dL Low 14.0-18.0 [facility] ([place]) Comment on above: Performed By: #### A DIFF, FE, ANEU, MORPH, GFR, CMP, CBC, FERR #### [address] [address] MCH (RBC) [Entitic mass] 20.9 pg Low 27.0-31.2 [facility] ([place] Comment on above: Performed By: #### A DIFF, FE, ANEU, MORPH, GFR, CMP, CBC, FERR #### [address] [address] MCHC 30.4 G/dL Low 31.8-35.4 [facility] ([place] Comment on above: Performed By: #### A DIFF, FE, ANEU, MORPH, GFR, CMP, CBC, FERR #### [address] [address] MCV (RBC) [Entitic vol] 68.7 fL Low 80.0-94.0 [facility] ([place]) Comment on above: Performed By: #### A DIFF, FE, ANEU, MORPH, GFR, CMP, CBC, FERR #### [address] [address] Platelet 498 10 3/mcL High 130-400 [facility] ([place]) Comment on above: Performed By: #### A DIFF, FE, ANEU, MORPH, GFR, CMP, CBC, FERR #### [address] [address] Platelet mean volume (Bld) [Entitic vol] 6.5 fL Low 7.4-10.4 [facility] ([place] Comment on above: Performed By: #### A DIFF, FE, ANEU, MORPH, GFR, CMP, CBC, FERR #### [address] [address] RBC 4.13 10 6/mcL Normal 4.04-6.13 [facility] ([place]) Comment on above: Performed By: #### A DIFF, FE, ANEU, MORPH, GFR, CMP, CBC, FERR #### [address] [address] WBC 6.1 10 3/mcL Normal 4.6-10.8 [facility] ([place] Comment on above: Performed By: #### A DIFF, FE, ANEU, MORPH, GFR, CMP, CBC, FERR #### [address] [address] CMPon 06-13-2023 Albumin Level 2.0 G/dL Low 3.5-5.0 [facility] ([place] Comment on above: Performed By: #### A DIFF, FE, ANEU, MORPH, GFR, CMP, CBC, FERR #### [address] [address] Albumin/Globulin [Mass ratio] 0.5 {ratio} Low 1.1-2.5 [facility] ([place] Comment on above: Performed By: #### A DIFF, FE, ANEU, MORPH, GFR, CMP, CBC, FERR #### [address] [address] ALP [Catalytic activity/Vol] 93 U/L Normal 40-135 [facility] ([place] Comment on above: Performed By: #### A DIFF, FE, ANEU, MORPH, GFR, CMP, CBC, FERR #### [address] [address] ALT [Catalytic activity/Vol] 45 U/L Normal 16-63 [facility] ([place]) Comment on above: Performed By: #### A DIFF, FE, ANEU, MORPH, GFR, CMP, CBC, FERR #### [address] [address] AST [Catalytic activity/Vol] 22 U/L Normal 10-40 [facility] ([place]) Comment on above: Performed By: #### A DIFF, FE, ANEU, MORPH, GFR, CMP, CBC, FERR #### [address] [address] Bili Total 0.1 mg/dL Low 0.2-1.0 [facility] ([place]) Comment on above: Result Comment: Use of this assay is not recommended for patients undergoing treatment with eltrombopag due to the potential for falsely elevated results. Performed By: #### A DIFF, FE, ANEU, MORPH, GFR, CMP, CBC, FERR #### [place] [address] BUN/Creatinine Ratio 15 ratio Normal 7-27 [facility]) Comment on above: Performed By: #### A DIFF, FE, ANEU, MORPH, GFR, CMP, CBC, FERR #### [address] [address] Calcium [Mass/Vol] 7.5 mg/dL Low 8.4-10.2 [facility] ([place]) Comment on above: Performed By: #### A DIFF, FE, ANEU, MORPH, GFR, CMP, CBC, FERR #### [address] [address] Chloride [Moles/Vol] 104 mmol/L Normal 98-107 [facility] ([place]) Comment on above: Performed By: #### A DIFF, FE, ANEU, MORPH, GFR, CMP, CBC, FERR #### [address] [address] CO2 [Moles/Vol] 30 mmol/L High 22-29 [facility] ([place]) Comment on above: Performed By: #### A DIFF, FE, ANEU, MORPH, GFR, CMP, CBC, FERR #### [place] [id number] Creatinine [Mass/Vol] 0.86 mg/dL Normal 0.70-1.30 [facility] ([place]) Comment on above: Performed By: #### A DIFF, FE, ANEU, MORPH, GFR, CMP, CBC, FERR #### [address] [address] Electrolyte Balance 7.0 mEq/L Normal 4.0-15.0 [facility] ([place]) Comment on above: Performed By: #### A DIFF, FE, ANEU, MORPH, GFR, CMP, CBC, FERR #### [address] [address] Globulin 3.9 G/dL Normal [facility] ([place]) Comment on above: Performed By: #### A DIFF, FE, ANEU, MORPH, GFR, CMP, CBC, FERR #### [address] [address] Glucose [Mass/Vol] 147 mg/dL High 70-105 [facility] ([place]) Comment on above: Performed By: #### A DIFF, FE, ANEU, MORPH, GFR, CMP, CBC, FERR #### [address] [address] Potassium [Moles/Vol] 3.8 mmol/L Normal 3.5-5.1 [facility] ([place]) Comment on above: Performed By: #### A DIFF, FE, ANEU, MORPH, GFR, CMP, CBC, FERR #### [address] [address] Sodium [Moles/Vol] 141 mmol/L Normal 136-145 [facility] ([place]) Comment on above: Performed By: #### A DIFF, FE, ANEU, MORPH, GFR, CMP, CBC, FERR #### [address] [address] Total Protein 5.9 G/dL Low 6.4-8.2 [facility] ([place]) Comment on above: Performed By: #### A DIFF, FE, ANEU, MORPH, GFR, CMP, CBC, FERR #### [place] [address] [place], [place] [address] Urea nitrogen [Mass/Vol] 13 mg/dL Normal 7-18 [facility] ([place]) Comment on above: Performed By: #### A DIFF, FE, ANEU, MORPH, GFR, CMP, CBC, FERR #### [place] [id number] [place], [place] [address] FEon 06-13-2023 Iron [Mass/Vol] 16 ug/dL Low 65-175 [facility] ([place]) Comment on above: Performed By: #### A DIFF, FE, ANEU, MORPH, GFR, CMP, CBC, FERR #### [address] [address] Lázaro 06-13-2023 Ferritin [Mass/Vol] 161.0 ng/mL Normal 26.0-388.0 [facility] ([place]) Comment on above: Performed By: #### A DIFF, FE, ANEU, MORPH, GFR, CMP, CBC, FERR #### [address] [address] Absolute lymphocyte countOrd ered By: Aristeo Boothe on 06-06-2023 Lymphocytes Auto (Unsp spec) [#/Vol] 0.14 10*3/uL 0.83-4.51 [facility] Basophil percentageOrdered B y: Aristeo Boothe on 06-06-2023 Basophils/100 WBC (Bld) 0.1 % 0-1 [facility] Chloride [Moles/Vol] 103 mmol/L 98-107 [facility] Eosinophils/100 WBC (Bld) 0.0 % 0-5 [facility] Glucose [Mass/Vol] 93 mg/dL 74-106 [facility] [place] [facility] Neutrophils (Bld) [#/Vol] 6.3 10*3/uL 2.0-7.7 [facility] Neutrophils/100 WBC (Bld) 91.8 % 47-70 [facility] Potassium [Moles/Vol] 3.3 mmol/L 3.5-5.1 [facility] Sodium [Moles/Vol] 133 mmol/L 136-145 [facility] [place] [facility] WBC (Bld) [#/Vol] 6.9 10*3/uL 4.4-11.0 [facility] [place] [facility] Blood erythrocytes count (nu mber/volume)Ordered By: Aristeo Boothe on 06-06-2023 RBC (Bld) [#/Vol] 3.92 10*6/uL 4.6-6.2 [facility] Blood hemoglobin measurement (mass/volume)Ordered By: Aristeo Boothe on 06-06-2023 Hemoglobin (Bld) [Mass/Vol] 7.5 g/dL 13.0-16.5 [facility] Blood lymphocytes/100 leukoc ytesOrdered By: Aristeo Boothe on 06-06-2023 Lymphocytes/100 WBC (Bld) 2.0 % 19-41 [facility] Blood monocytes/100 leukocyt esOrdered By: Aristeo Boothe on 06-06-2023 Monocytes/100 WBC (Bld) 5.4 % 0-10 [facility] Blood platelet adequacy dete ction by light microscopyOrdered By: Aristeo Boothe on 06-06-2023 Platelets LM Ql (Bld) ADEQUATE ADEQ [facility] Blood platelet mean volumeOr dered By: Aristeo Boothe on 06-06-2023 Platelet mean volume (Bld) [Entitic vol] 8.1 fL 6.2-12.0 [facility] Determination of erythrocyte mean corpuscular volume (MCV)Ordered By: Aristeo Boothe on 06-06-2023 MCV (RBC) [Entitic vol] 69.1 fL 80-94 [facility] Erythrocyte sedimentation ra teOrdered By: Ephraim Sandoval on 06-06-2023 ESR (Bld) [Velocity] 18 mm/h 0-20 [facility] Hematocrit Auto (Bld) [Volum e fraction]Ordered By: Aristeo Boothe on 06-06-2023 Hematocrit (Bld) [Volume fraction] 27.1 % 40-54 [facility] Laboratory - Chemistry and C hemistry - challengeOrdered By: Aristeo Boothe on 06-06-2023 CO2 [Moles/Vol] 22.0 mmol/L 21.0-32.0 [facility] Urea nitrogen/Creatinine [Mass ratio] 4.1 mg/mg 10-20 [facility] Laboratory - Hematology and Cell countsOrdered By: Aristeo Boothe on 06-06-2023 Erythrocyte distribution width (RBC) [Entitic vol] 60.4 fL 35.1-43.9 [facility] Erythrocyte distribution width (RBC) [Ratio] 25.3 % 11.6-14.6 [facility] Immature granulocytes/100 WBC (Bld) 0.700 % 0.0-0.9 [facility] Comment on above: IG% - Immature Granu locytes (promyelocytes, myelocytes and metamyelocytes) > 1% indicates that a LEFT SHIFT is Present. MCH (RBC) [Entitic mass] 19.1 pg 27.0-32.0 [facility] Nucleated RBC/100 WBC (Bld) [Ratio] 0 % 0-5 [facility] MCHC Auto (RBC) [Mass/Vol]Or dered By: Aristeo Boothe on 06-06-2023 MCHC (RBC) [Mass/Vol] 27.7 g/dL 32-36 [facility] No Panel InformationOrdered By: Dank Washington on 06-06-2023 Hepatitis A IgM Antibody Negative Negative [facility] Hepatitis B Core IgM Antibody Negative Negative [facility] Hepatitis C Antibody (EIA) Non-Reactive Non Reactive [facility] Hepatitis C Antibody Comment Comment . [facility] Comment on above: Not infected with HC V unless early or acute infection issuspected (which may be delayed in an immunocompromisedindividual), or other evidence exists to indicate HCVinfection.Performed at: [facility] [id number] Director: Chavo Bañuelos PhD, Phone: [phone] No Panel InformationOrdered By: Aristeo Boothe on 06-06-2023 Estimated Creatinine Clearance Calc 91.21 ml/min [facility] Estimated GFR (MDRD) Amer 90 mL/min >60 [facility] Comment on above: GFR Calc Estimated GFR (MDRD) Non-Af Amer 74 mL/min >60 [facility] Comment on above: Non- GFR Calc No Panel InformationOrdered By: Ephraim Sandoval on 06-06-2023 Miscellaneous Test See comment [facility] Comment on above: TEST RESULT LIMITSIB D Expanded Panel Dorys 18 units 0-50 Negative <45 Equivocal 45 - 50 Positive >50 ACCA 101 High units 0-90 Negative <80 Equivocal 80 - 90 Positive >90 ALCA 18 units 0-60 Negative <55 Equivocal 55 - 60 Positive >60 AMCA 5 units 0-100 Negative < 90 Equivocal 90 - 100 Positive >100 This test was developed and its performance characteristics determined by [facility]. It has not been cleared or approved by the Food and Drug Administration. The FDA has determined that such clearance or approval is not necessary.Atypical pANCA Negative Negative Comments Abnormal Suggestive of Crohn's Disease. Pattern is not conclusive for disease behavior risk stratification. TESTING PERFORMED AT [facility]. ORIGINAL REPORT ON FILE IN LAB CONTAINS ADDITIONAL TEST SITE INFORMATION. Platelets bldOrdered By: Gunjan Boothe on 06-06-2023 Platelets (Bld) [#/Vol] TNP [facility] Comment on above: Test not performedPl ease note: For this sample, a platelet estimate is provided rather than a platelet count due to platelet clumping. Other parameters associated with this sample are not affected by platelet clumping. If a more accurate platelet count is required, a redraw of the patient will be necessary.Previous reported result: [id number] by: ROBERTO on 06/06/23:0745 Qualitative QuantiFERON-TB g old in tube testOrdered By: Dank Washington on 06-06-2023 M. tuberculosis tuberculin stim IFN-g Ql (Bld) > 10.00 IU/mL . [facility] Serum or plasma C reactive p rotein measurement (mass/volume)Ordered By: Ephraim Sandoval on 06-06-2023 CRP [Mass/Vol] 108.00 mg/L 0.0-3.0 [facility] Comment on above: C-Reactive Protein ( CRP) provides useful information for thediagnosis, therapy and monitoring of inflammatory processesand associated diseases. For the evaluation of Relative Riskfor Cardiovascular Disease, a High Sensitivity CRP (HSCRP)should be ordered. Serum or plasma calcium deonna urement (mass/volume)Ordered By: Aristeo Boothe on 06-06-2023 Calcium [Mass/Vol] 7.1 mg/dL 8.5-10.1 [facility] [place] [facility] Serum or plasma creatinine m easurement (mass/volume)Ordered By: Aristeo Boothe on 06-06-2023 Creatinine [Mass/Vol] 1.21 mg/dL 0.70-1.30 [facility] Comment on above: The validity of the calculated GFR & GFRAA in patients over 70 years has not been determined. Clinical correlation is essential. Serum or plasma hepatitis B virus surface antigen detection by immunoassayOrdered By: Dank [place] on 06-06-2023 HBV surface Ag IA Ql Negative Negative [facility] Serum or plasma urea nitroge n measurement (mass/volume)Ordered By: Aristeo Boothe on 06-06-2023 Urea nitrogen [Mass/Vol] 5 mg/dL 7-18 [facility] Thin prep Papanicolaou smear with manual screeningOrdered By: Dank Washington on 06-06-2023 Thin prep Papanicolaou smear with manual screening Comment . [facility] Comment on above: QuantiFERON-TB Gold Plus is a qualitative indirect test forM tuberculosis infection (including disease) and isintended for use in conjunction with risk assessment,radiography, and other medical and diagnostic evaluations.The QuantiFERON-TB Gold Plus result is determined bysubtracting the Nil value from either TB antigen (Ag)value. The Mitogen tube serves as a control for the test. Thin prep Papanicolaou smear with manual screening > 10.00 IU/mL . [facility] Thin prep Papanicolaou smear with manual screening Indeterminate Negative [facility] Comment on above: Nil (negative contro l) gave high response. This indicatedelevated levels of circulating interferon gamma or thepresence of heterophile antibodies.The specimen received for QuantiFERON testing was incubatedby the ordering institution. Specific procedures outlinedin our Directory of Services and in the package insert forthe QuantiFERON Gold (In Tube) test must be followed toenable for proper stimulation of cells for the productionof interferon gamma. Chemiluminescence immunoassaymethodology Thin prep Papanicolaou smear with manual screeningOrdered By: Aristeo Boothe on 06-06-2023 Thin prep Papanicolaou smear with manual screening 8 5-15 [facility] Atypical perinuclear antineu trophil cytoplasmic antibodies measurementOrdered By: Ephraim Sandoval on 06-05-2023 Neutrophil cytoplasmic Ab.perinuclear.atypical IF (S) [Titer] <1:20 titer Neg:<1:20 [facility] Comment on above: The atypical pANCA p attern has been observed in asignificant percentage of patients with ulcerative colitis,primary sclerosing cholangitis and autoimmune hepatitis.Performed at: - [facility] [address] [id number] Director: Chavo Bañuelos PhD, Phone: [phone] at: - [facility] [id number] Director: Jennyfer De La Torre MD, Phone: [phone] Basophil percentageOrdered B y: Ephraim Sandoval on 06-05-2023 Basophil percentage < 0.2 AI 0.0-0.9 [facility] Blood manual differential co mment interpretation (narrative result)Ordered By: Aristeo Boothe on 06-05-2023 Manual differential comment Nils (Bld) [Interp] SCANNED [facility] Comment on above: LYMPHOPENIA NOTED3+ ANISOCYTOSIS Hypochromatic red blood cell detectionOrdered By: Sandro Dey on 06-05-2023 Hypochromia Ql (Bld) 1+ [facility] Laboratory - Hematology and Cell countsOrdered By: Sandro Dey on 06-05-2023 Anisocytosis Ql (Bld) 1+ [facility] Laboratory - Microbiology an d Antimicrobial susceptibilityOrdered By: Aristeo Boothe on 06-05-2023 Bacteria identified Cx Nom (Bld) No growth in 5 days. [facility] Bacteria identified Cx Nom (Bld) No growth in 5 days. [facility] No Panel InformationOrdered By: Ephraim Sandoval on 06-05-2023 Anti-Gliadin IgA Antibody 8 units 0-19 [facility] Comment on above: Negative 0 - 19 Weak Positive 20 - 30 Moderate to Strong Positive >30 Anti-Gliadin IgG Antibody 3 units 0-19 [facility] Comment on above: Negative 0 - 19 Weak Positive 20 - 30 Moderate to Strong Positive >30 Centromere B Antibody <0.2 AI 0.0-0.9 [facility] Endomysial IgA Antibody Negative Negative [facility] Immunoglobulin E 68 IU/mL 6-495 [facility] BICYCLE FITTER Antibody <0.2 AI 0.0-0.9 [facility] Tissue Transglutaminase IgG Ab <2 U/mL 0-5 [facility] Comment on above: Negative 0 - 5 Weak Positive 6 - 9 Positive >9 No Panel InformationOrdered By: Sandro Dey on 06-05-2023 Thyroid Stimulating Hormone (TSH) 4.79 uIU/mL 0.358-3.74 [facility] Review by pathologistOrdered By: Sandro Dey on 06-05-2023 Pathologist review Nils (Unsp spec) [Interp] Reviewed [facility] Comment on above: Previous reported re sult: Ciara awad Edited by: RGOOD on 06/05/23:1344LeukopeniaMicrocytic anemia.Thrombocytosis.Clinical correlation necessary.Vernon Luna M.D. 06/05/23 AMENDED REPORT 06/05/23 1344 PATH REV previously reported as: Ciara awad Serum DNA double strand anti body assay (units/volume)Ordered By: Ephraim Sandoval on 06-05-2023 DNA double strand Ab Qn (S) [IU]/mL 0-9 [facility] Comment on above: Negative <5 Equivoca l 5 - 9 Positive >9 Serum Lois-1 antibody assay (u nits/volume)Ordered By: Ephraim Sandoval on 06-05-2023 Lois-1 extractable nuclear Ab Qn (S) <0.2 AI 0.0-0.9 [facility] Serum Scl-70 extractable nuc lear antibody assay (units/volume)Ordered By: Ephraim Sandoval on 06-05-2023 SCL-70 extractable nuclear Ab Qn (S) <0.2 AI 0.0-0.9 [facility] Serum Cole extractable nucl ear antibody detectionOrdered By: Ephraim Sandoval on 06-05-2023 Cole extractable nuclear Ab Ql (S) <0.2 AI 0.0-0.9 [facility] Serum classic neutrophil cyt oplasmic antibody assay (units/volume)Ordered By: Ephraim Sandoval on 06-05-2023 Neutrophil cytoplasmic Ab.classic Qn (S) <1:20 titer Neg:<1:20 [facility] Serum or plasma IgA measurem ent (mass/volume)Ordered By: Ephraim Sandoval on 06-05-2023 IgA [Mass/Vol] 717 mg/dL 90-386 [facility] Serum or plasma IgG measurem ent (mass/volume)Ordered By: Ephraimkhalida Sandoval on 06-05-2023 IgG [Mass/Vol] 1164 mg/dL 603-1613 [facility] Serum or plasma IgM measurem ent (mass/volume)Ordered By: Ephraimkhalida Sandoval on 06-05-2023 IgM [Mass/Vol] 59 mg/dL 20-172 [facility] Serum perinuclear neutrophil cytoplasmic antibody titer by immunofluorescenceOrdered By: Ephraim Sandoval on 06-05-2023 Neutrophil cytoplasmic Ab.perinuclear IF (S) [Titer] <1:20 titer Neg:<1:20 [facility] Comment on above: The presence of posi tive fluorescence exhibiting P-ANCA orC-ANCA patterns alone is not specific for the diagnosis ofWegener's Granulomatosis (WG) or microscopic polyangiitis.Decisions about treatment should not be based solely onANCA IFA results. The [employer] ANCA [employer] Consensusrecommends follow up testing of positive sera with both WY-3 and MPO-ANCA enzyme immunoassays. As many as 5% serumsamples are positive only by EIA. Ref. AM J Clin [id number];111:[id number]. Serum tissue transglutaminas e IgA antibody assay (units/volume)Ordered By: Ephraim Sandoval on 06-05-2023 tTG IgA Qn (S) <2 U/mL 0-3 [facility] Comment on above: Negative 0 - 3 Weak Positive 4 - 10 Positive >10 Tissue Transglutaminase (tTG) has been identified as the endomysial antigen. Studies have demonstr- ated that endomysial IgA antibodies have over 99% specificity for gluten sensitive enteropathy. Basophil percentageOrdered B y: Sandro Dey on 06-04-2023 Bilirubin [Mass/Vol] 0.20 mg/dL 0.20-1.00 [facility] Comment on above: For patients on eltr ombopag therapy, use of Dimension Bardolph TBIL is not recommended. Protein [Mass/Vol] 5.7 g/dL 6.4-8.2 [facility] - Chemistry and C hemistry - challengeOrdered By: Sandro Dey on 06-04-2023 ALP [Catalytic activity/Vol] 81 U/L 45-117 [facility] ALT [Catalytic activity/Vol] 13 U/L 16-61 [facility] Globulin (S) [Mass/Vol] 4.3 g/dL 2.2-4.2 [facility] Serum or plasma albumin deonna urement (mass/volume)Ordered By: Sandro Dey on 06-04-2023 Albumin [Mass/Vol] 1.4 g/dL 3.2-5.0 [facility] Serum or plasma albumin/glob ulin mass ratioOrdered By: Sandro Dey on 06-04-2023 Albumin/Globulin [Mass ratio] 0.3 {ratio} 0.9-2.4 [facility] Thin prep Papanicolaou smear with manual screeningOrdered By: Sandro Dey on 06-04-2023 Thin prep Papanicolaou smear with manual screening 17 U/L 15-37 [facility] Absolute lymphocyte countOrd ered By: John Serrano on 06-03-2023 Lymphocytes Auto (Unsp spec) [#/Vol] 0.46 10*3/uL 0.83-4.51 [facility] Basophil percentageOrdered B y: John Serrano on 06-03-2023 Basophils/100 WBC (Bld) 0.5 % 0-1 [facility] Bilirubin [Mass/Vol] 0.20 mg/dL 0.20-1.00 [facility] Comment on above: For patients on eltr ombopag therapy, use of Dimension Bardolph TBIL is not recommended. Chloride [Moles/Vol] 110 mmol/L 98-107 [facility] Eosinophils/100 WBC (Bld) 2.0 % 0-5 [facility] Glucose [Mass/Vol] 97 mg/dL 74-106 [facility] Neutrophils (Bld) [#/Vol] 2.9 10*3/uL 2.0-7.7 [facility] Neutrophils/100 WBC (Bld) 72.0 % 47-70 [facility] Potassium [Moles/Vol] 3.4 mmol/L 3.5-5.1 [facility] Protein [Mass/Vol] 6.1 g/dL 6.4-8.2 [facility] Sodium [Moles/Vol] 140 mmol/L 136-145 [facility] WBC (Bld) [#/Vol] 4.0 10*3/uL 4.4-11.0 [facility] Blood erythrocytes count (nu mber/volume)Ordered By: John Serrano on 06-03-2023 RBC (Bld) [#/Vol] 3.58 10*6/uL 4.6-6.2 [facility] Blood hemoglobin measurement (mass/volume)Ordered By: John Serrano on 06-03-2023 Hemoglobin (Bld) [Mass/Vol] 5.8 g/dL 13.0-16.5 [facility] Blood lymphocytes/100 leukoc ytesOrdered By: John Serrano on 06-03-2023 Lymphocytes/100 WBC (Bld) 11.5 % 19-41 [facility] Blood monocytes/100 leukocyt esOrdered By: John Serrano on 06-03-2023 Monocytes/100 WBC (Bld) 13.5 % 0-10 [facility] Blood platelet mean volumeOr dered By: John Serrano on 06-03-2023 Platelet mean volume (Bld) [Entitic vol] 7.7 fL 6.2-12.0 [facility] Determination of erythrocyte mean corpuscular volume (MCV)Ordered By: John Serrano on 06-03-2023 MCV (RBC) [Entitic vol] 63.4 fL 80-94 [facility] Hematocrit Auto (Bld) [Volum e fraction]Ordered By: John Serrano on 06-03-2023 Hematocrit (Bld) [Volume fraction] 22.7 % 40-54 [facility] Hypochromatic red blood cell detectionOrdered By: John Serrano on 06-03-2023 Hypochromia Ql (Bld) 2+ [facility] INR in Blood by Coagulation assayOrdered By: John Serrano on 06-03-2023 INR Coag (Bld) [Relative time] 1.1 {INR} [facility] Iron measurement (mass/mass) Ordered By: Sandro Dey on 06-03-2023 Iron (Unsp spec) [Mass/Mass] 10 ug/dL 65-175 [facility] Laboratory - Chemistry and C hemistry - challengeOrdered By: Sandro Dey on 06-03-2023 Cobalamin (Vitamin B12) [Mass/Vol] 827 pg/mL 211-911 [facility] Laboratory - Chemistry and C hemistry - challengeOrdered By: John Serrano on 06-03-2023 ALP [Catalytic activity/Vol] 86 U/L 45-117 [facility] ALT [Catalytic activity/Vol] 14 U/L 16-61 [facility] CO2 [Moles/Vol] 26.0 mmol/L 21.0-32.0 [facility] Globulin (S) [Mass/Vol] 4.4 g/dL 2.2-4.2 [facility] Urea nitrogen/Creatinine [Mass ratio] 14.0 mg/mg 10-20 [facility] Laboratory - CoagulationOrde red By: John Serrano on 06-03-2023 aPTT Coag (Bld) [Time] 32.0 s 24.1-36.2 [facility] PT Coag (PPP) [Time] 14.2 s 11.7-14.9 [facility] Laboratory - Hematology and Cell countsOrdered By: John Serrano on 06-03-2023 Anisocytosis Ql (Bld) 2+ [facility] Erythrocyte distribution width (RBC) [Entitic vol] 41.9 fL 35.1-43.9 [facility] Erythrocyte distribution width (RBC) [Ratio] 18.7 % 11.6-14.6 [facility] Immature granulocytes/100 WBC (Bld) 0.500 % 0.0-0.9 [facility] Comment on above: IG% - Immature Granu locytes (promyelocytes, myelocytes and metamyelocytes) > 1% indicates that a LEFT SHIFT is Present. MCH (RBC) [Entitic mass] 16.2 pg 27.0-32.0 [facility] Nucleated RBC/100 WBC (Bld) [Ratio] 0 % 0-5 [facility] Lower GI hemoglobin IA Ql (S tl)Ordered By: John Serrano on 06-03-2023 Stool Occult Blood (AURY) Positive [facility] Stool Occult Blood (AURY) Positive [facility] MCHC Auto (RBC) [Mass/Vol]Or dered By: John Serrano on 06-03-2023 MCHC (RBC) [Mass/Vol] 25.6 g/dL 32-36 [facility] No Panel InformationOrdered By: John Serrano on 06-03-2023 Estimated Creatinine Clearance Calc 129.35 ml/min [facility] Estimated GFR (MDRD) Amer 134 mL/min >60 [facility] Comment on above: GFR Calc Estimated GFR (MDRD) Non-Af Amer 111 mL/min >60 [facility] Comment on above: Non- GFR Calc No Panel InformationOrdered By: Sandro Dey on 06-03-2023 Total Iron Binding Capacity 171 ug/dL 250-450 [facility] Platelets bldOrdered By: Pacheco Serrano on 06-03-2023 Platelets (Bld) [#/Vol] 457 10*3/uL 150-450 [facility] Review by pathologistOrdered By: John Serrano on 06-03-2023 Pathologist review Nils (Unsp spec) [Interp] January [facility] Serum or plasma albumin deonna urement (mass/volume)Ordered By: John Serrano on 06-03-2023 Albumin [Mass/Vol] 1.7 g/dL 3.2-5.0 [facility] Serum or plasma albumin/glob ulin mass ratioOrdered By: John Serrano on 06-03-2023 Albumin/Globulin [Mass ratio] 0.4 {ratio} 0.9-2.4 [facility] Serum or plasma calcium deonna urement (mass/volume)Ordered By: John Serrano on 06-03-2023 Calcium [Mass/Vol] 8.2 mg/dL 8.5-10.1 [facility] Serum or plasma creatinine m easurement (mass/volume)Ordered By: John Serrano on 06-03-2023 Creatinine [Mass/Vol] 0.86 mg/dL 0.70-1.30 [facility] Comment on above: The validity of the calculated GFR & GFRAA in patients over 70 years has not been determined. Clinical correlation is essential. Serum or plasma ferritin behzad surement (mass/volume)Ordered By: Sandro Dey on 06-03-2023 Ferritin [Mass/Vol] 2 ng/mL 26-388 [facility] Serum or plasma folate measu rement (mass/volume)Ordered By: Sandro Dey on 06-03-2023 Folate [Mass/Vol] 16.60 ng/mL 3.1-55.4 [facility] Serum or plasma iron saturat ion measurement (mass fraction)Ordered By: Sandro Dey on 06-03-2023 Iron saturation [Mass fraction] 5.8 % 15.0-55.0 [facility] Serum or plasma urea nitroge n measurement (mass/volume)Ordered By: John Serrano on 06-03-2023 Urea nitrogen [Mass/Vol] 12 mg/dL 7-18 [facility] Thin prep Papanicolaou smear with manual screeningOrdered By: John Serrano on 06-03-2023 Thin prep Papanicolaou smear with manual screening 2+ [facility] Thin prep Papanicolaou smear with manual screening 10 U/L 15-37 [facility] Thin prep Papanicolaou smear with manual screening 4 5-15 [facility] Office Visit (Pediatric Neur ology)on 11-11-2022 Follow-up [...] on services through [facility]. 3. 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 4. [...] Present Illness This visit was completed via Lela due to the restrictions of the COVID-19 [...] hobby. He goes with his brother to [email or web address], the Gathering activities. He is sleeping and [...] to mother Signatures Electronically signed by : William Kelly MD; Nov 11 2022 10:54AM EST (Author) [employer] Vital Signs Date Time Vital Sign Value Performing Clinician Facility 02-26-2025 14:21-0400 Body height 185.[address] Marcio Barron DO Work Phone: [facility] 02-26-2025 14:21-0400 Body mass index (BMI) [Ratio] 39.6 kg/m2 Dr. Marcio Barron DO Work Phone: [facility] 02-26-2025 14:21-0400 Body weight 136.[address] Marcio Barron DO Work Phone: [facility] 11-14-2024 13:57-0500 Body height 182.9 cm William Kelly MD Work Phone: [facility] 11-14-2024 13:57-0500 Body mass index (BMI) [Ratio] 40.1 kg/m2 William Kelly MD Work Phone: [facility] 11-14-2024 13:57-0500 Body weight 134.1 kg William Kelly MD Work Phone: 1(189)043-597696 [place] [address] 11-09-2023 13:51-0500 Body height 184.5 cm William Kelly MD Work Phone: [facility] 11-09-2023 13:51-0500 Body mass index (BMI) [Ratio] 28.38 kg/m2 William Kelly MD Work Phone: [facility] 11-09-2023 13:51-0500 Body temperature 97.5 [degF] William Kelly MD Work Phone: [facility] 11-09-2023 13:51-0500 Body weight 96.6 kg William Kelly MD Work Phone: [facility] 11-09-2023 13:51-0500 Diastolic blood pressure 70 mm[Hg] William Kelly MD Work Phone: [facility] 11-09-2023 13:51-0500 Heart rate 86 /min William Kelly MD Work Phone: [facility] 11-09-2023 13:51-0500 Systolic blood pressure 110 mm[Hg] William Kelly MD Work Phone: [facility] 09-21-2023 10:41-0500 Body height 185.[address] Marcio Barron Work Phone: [facility] 08-16-2023 13:10-0500 Body temperature 96.9 [degF] Dr. John Serrano Work Phone: [facility] 08-16-2023 13:10-0500 Diastolic blood pressure 56 mm[Hg] Dr. John Serrano Work Phone: [facility] 08-16-2023 13:10-0500 Heart rate 76 /min Dr. John Serrano Work Phone: [facility] 08-16-2023 13:10-0500 Respiratory rate 16 /min Dr. John Serrano Work Phone: [facility] 08-16-2023 13:10-0500 Systolic blood pressure 113 mm[Hg] Dr. John Serrano Work Phone: [facility] 08-16-2023 11:24-0500 Body height 185.[address] John Serrano Work Phone: [facility] 08-16-2023 11:24-0500 Body mass index (BMI) [Ratio] 23.7 kg/m2 Dr. John Serrano Work Phone: [facility] 08-16-2023 11:24-0500 Body weight 81.[address] John Serrano Work Phone: [facility] 07-03-2023 13:51-0400 Diastolic blood pressure 71 mm[Hg] Dr. John Serrano Work Phone: [facility] 07-03-2023 13:51-0400 Heart rate 85 /min Dr. John Serrano Work Phone: [facility] 07-03-2023 13:51-0400 Respiratory rate 16 /min Dr. John Serrano Work Phone: [facility] 07-03-2023 13:51-0400 SaO2% (BldA) [Mass fraction] 100 % Dr. John Serrano Work Phone: [facility] 07-03-2023 13:51-0400 Systolic blood pressure 133 mm[Hg] Dr. John Serrano Work Phone: [facility] 07-03-2023 12:32-0400 Body height 185.[address] John Serrano Work Phone: 2(047)407-209062 [place] [address] 07-03-2023 12:32-0400 Body mass index (BMI) [Ratio] 23.7 kg/m2 Dr. John Serrano Work Phone: 7(712)097-394162 [place] [address] 07-03-2023 12:32-0400 Body temperature 97.8 [degF] Dr. John Serrano Work Phone: 7(337)803-417062 [place] [address] 07-03-2023 12:32-0400 Body weight 81.[address] John Serrano Work Phone: 9(692)680-569562 [place] [address] 06-06-2023 14:50-0400 Body temperature 97.8 [degF] Dr. John Serrano Work Phone: 7(424)964-583362 [place] [address] 06-06-2023 14:50-0400 Diastolic blood pressure 60 mm[Hg] Dr. John Serrano Work Phone: 1(594)993-831362 [place] [address] 06-06-2023 14:50-0400 Heart rate 82 /min Dr. John Serrano Work Phone: 3(491)105-713162 [place] [address] 06-06-2023 14:50-0400 Respiratory rate 16 /min Dr. John Serrano Work Phone: [facility] 06-06-2023 14:50-0400 SaO2% (BldA) [Mass fraction] 100 % Dr. John Serrano Work Phone: [facility] 06-06-2023 14:50-0400 Systolic blood pressure 98 mm[Hg] Dr. John Serrano Work Phone: 9(006)339-636662 [place] [address] 06-04-2023 21:06-0400 Body height 185.[address] John Serrano Work Phone: [facility] 06-04-2023 21:06-0400 Body mass index (BMI) [Ratio] 21.2 kg/m2 Dr. John Serrano Work Phone: [facility] 06-04-2023 21:06-0400 Body weight 72.[address] John Serrano Work Phone: [facility] 06-03-2023 14:59-0400 Body temperature 98.4 [degF] Dr. John Serrano Work Phone: 1(511)295-782362 [place] [address] 06-03-2023 14:59-0400 Diastolic blood pressure 61 mm[Hg] Dr. John Serrano Work Phone: 1(150)100-987662 [place] [address] 06-03-2023 14:59-0400 Heart rate 87 /min Dr. John Serrano Work Phone: 8(263)629-992962 [place] [address] 06-03-2023 14:59-0400 Respiratory rate 18 /min Dr. John Serrano Work Phone: 3(424)257-784762 [place] [address] 06-03-2023 14:59-0400 SaO2% (BldA) [Mass fraction] 100 % Dr. John Serrano Work Phone: 8(900)603-999562 [place] [address] 06-03-2023 14:59-0400 Systolic blood pressure 100 mm[Hg] Dr. John Serrano Work Phone: 2(334)382-981962 [place] [address] 06-03-2023 13:14-0400 Body height 185.[address] John Serrano Work Phone: 3(134)941-926362 [place] [address] 06-03-2023 13:14-0400 Body mass index (BMI) [Ratio] 21.3 kg/m2 Dr. John Serrano Work Phone: 6(205)651-135762 [place] [address] 06-03-2023 13:14-0400 Body weight 73.[address] John Serrano Work Phone: 6(940)223-402962 [place] [address] 11-11-2021 14:19-0500 Body height 184 cm Dennis Urena Work Phone: HK-Lzixiywfll-Zlgkf [facility] 220 Work Phone: 11-11-2021 14:19-0500 Body mass index (BMI) [Ratio] 21.08 kg/m2 Dennis Urena Work Phone: YD-Kksrzrvnxv-Zgvxy a 220 Work Phone: 11-11-2021 14:19-0500 Body surface area Derived from formula 1.93 m2 Dennis Urena Work Phone: YD-Gcinyljiym-Ipbfi a 220 Work Phone: 11-11-2021 14:19-0500 Body temperature 97.7 [degF] Dennis Linson Work Phone: IR-Ipqhximzkh-Gmcal a 220 Work Phone: 11-11-2021 14:19-0500 Body weight 71.39 kg Dennis Urena Work Phone: JV-Oyniavnrig-Accmb a 220 Work Phone: 11-11-2021 14:19-0500 Diastolic blood pressure 70 mm[Hg] Dennis Urena Work Phone: SW-Krnwfuhvha-Vawdq a 220 Work Phone: 11-11-2021 14:19-0500 Heart rate 100 /min Dennis Linson Work Phone: QJ-Jmcmayjfup-Lzbps a 220 Work Phone: 11-11-2021 14:19-0500 Systolic blood pressure 112 mm[Hg] Dennis Urena Work Phone: DS-Gpecdcczos-Vuoja a 220 Work Phone: Encounters Encounter Date Encounter Type Care Provider Facility Start: 07-23-2025 End: 07-23-2025 ambulatory Marcio Beatrice Facility:[facility] Start: 07-18-2025 End: 07-18-2025 ambulatory Marcio Beatrice Facility:[facility] Start: 04-24-2025 End: 04-24-2025 Patient encounter procedure Ephraim Sandoval DO -[facility] Work Phone: Start: 04-24-2025 End: 04-24-[address] Marcio Barron DO Work Phone: -[facility] Start: 02-26-2025 End: 02-26-2025 Patient encounter procedure Michelle STARKEY -[facility] Work Phone: Start: 02-26-2025 End: 02-26-[address] Marcio Barron DO Work Phone: [facility] Work Phone: Start: 02-13-2025 End: 02-13-[address] Marcio Barron DO Work Phone: [facility] Work Phone: Start: 02-13-2025 End: 02-13-2025 Patient encounter procedure Ephraim Sandoval DO -Laboratory Work Phone: Start: 02-13-2025 End: 02-13-2025 ambulatory Marcio Barron Facility:[facility] Start: 01-30-2025 End: 01-30-2025 Patient encounter procedure Asia Wheeler -[facility] Work Phone: Start: 01-30-2025 End: 01-30-[address] Marcio Barron DO Work Phone: [facility] Work Phone: Start: 01-02-2025 End: 01-02-2025 Patient encounter procedure Asia Wheeler -[facility] Work Phone: Start: 01-02-2025 End: 01-02-2025 ambulatory Marcio Barron Facility:[facility] Start: 12-27-2024 End: 12-27-[address] Marcio Barron DO Work Phone: [facility] Work Phone: Start: 12-27-2024 End: 12-27-2024 Patient encounter procedure Ephraim Sandoval DO -Laboratory, Specimen Work Phone: Start: 12-27-2024 End: 12-27-2024 ambulatory Marcio Beatrice Facility:[facility] Start: 2024 End: 2024 Patient encounter procedure Asia Liam -[facility] Work Phone: Start: 2024 End: 2024 ambulatory Marcio Beatrice Facility:[facility] Start: 11-14-2024 End: 11-14-2024 Office outpatient visit 15 minutes William Kelly MD Work Phone: [facility] Comment on above: Anxiety disorder, un specified type Start: 11-14-2024 End: 11-14-2024 ambulatory WILLIAM KELLY [facility] Start: 11-08-2024 End: 11-08-2024 Patient encounter procedure Ephraim Sandoval DO -Laboratory Work Phone: Start: 11-07-2024 End: 11-07-2024 Patient encounter procedure Ephraim Sandoval DO -[facility] Work Phone: Start: 11-07-2024 End: 11-08-2024 ambulatory Marcio Beatrice Facility:[facility] Start: 10-10-2024 End: 10-10-2024 Patient encounter procedure Ephraim Sandoval DO -[facility] Work Phone: Start: 10-10-2024 End: 10-10-2024 ambulatory Marcio Beatrice Facility:[facility] Start: 09-12-2024 End: 09-12-2024 ambulatory Marcio Beatrice Facility:[facility] Start: 09-12-2024 End: 09-12-2024 Patient encounter procedure Ephraim Sandoval DO [facility] Work Phone: Start: 09-04-2024 End: 09-04-2024 Patient encounter procedure Michelle Luevano PA -Laboratory Work Phone: Start: 09-04-2024 End: 09-04-2024 ambulatory Marcio Beatrice Facility:[facility] Start: 08-14-2024 End: 08-14-2024 ambulatory Marcio Barron Facility:[facility] Start: 11-30-2023 End: 11-30-[address] Marcio Barron Work Phone: [facility] Work Phone: Start: 11-30-2023 End: 11-30-[address] [facility] Start: 11-09-2023 End: 11-09-2023 Office outpatient visit 15 minutes William Kelly MD Work Phone: [facility] Comment on above: Anxiety disorder, un specified type (Primary Dx) Start: 10-11-2023 End: 10-11-[address] Marcio Barron Work Phone: [facility] Work Phone: Start: 08-16-2023 End: 08-16-[address] John Serrano Work Phone: [facility] Work Phone: Start: 08-16-2023 End: 08-16-[address] John Serrano Work Phone: [facility]-Medical Out Work Phone: Start: 07-21-2023 End: 07-21-[address] John Serrano Work Phone: [facility] Work Phone: Start: 07-21-2023 End: 07-21-[address] [facility]err[facility]: Start: 07-03-2023 End: 07-03-[address] John Serrano Work Phone: [facility] Work Phone: Start: 07-03-2023 End: 07-03-[address] John Serrano Work Phone: [facility]-MRI - [facility] Work Phone: Start: 06-22-2023 End: 06-22-[address] John Serrano Work Phone: [facility]-Ultrasound, [facility] Work Phone: Start: 06-15-2023 End: 06-15-[address] John Serrano Work Phone: [facility]-Radiology, [facility] Work Phone: Start: 06-13-2023 End: 06-18-2023 ambulatory MARISA JORDAN MATHS [employer]OR[employer]MONITOR TECH Facility:B Start: 06-13-2023 End: 06-18-2023 Encounter for general adult medical examination without abnormal findings MARISA JORDAN MATHS TUTOR-MONITOR TECH Facility:[facility] Start: 06-06-2023 Non-patient / Non-visit Dr. John Serrano Work Phone: [facility] Work Phone: Start: 06-05-2023 Non-patient / Non-visit Dr. John Serrano Work Phone: [facility] Start: 06-05-2023 Non-patient / Non-visit Dr. John Serrano Work Phone: [facility] Work Phone: Start: 06-04-2023 Non-patient / Non-visit Dr. John Serrano Work Phone: [facility] Start: 06-04-2023 Non-patient / Non-visit Dr. John Serrano Work Phone: [facility] Work Phone: Start: 06-03-2023 Non-patient / Non-visit Dr. John Serrano Work Phone: [facility] Work Phone: Start: 06-03-2023 End: 06-06-2023 Evaluation and management of inpatient Dr. oJhn Serrano Work Phone: [facility]-Progressive Care Unit Work Phone: Start: 11-11-[address] Dennis Urena Facility:[id number] Start: 11-11-2022 Office outpatient visit 15 minutes Dennis Urena Work Phone: [facility]or[facility]Blpkriybjsz [facility] Work Phone: Start: 11-11-2021 Office outpatient visit 15 minutes Dennis Urena Work Phone: [facility]Vzltcyplbn-Kbuidfwnn-Ad min RBC 585 Work Phone: Start: 11-11-2021 Patient encounter procedure Dennis Urena Work Phone: [facility]Qqqgxxcorj-Apchqo 220 Work Phone: Procedures Date Procedure Procedure Detail Performing Clinician Start: 11-08-2024 Measurement of renal function Dr. Marcio Barron DO Work Phone: Comment on above: GFR Calc Start: 11-30-[address] Marcio Barron Work Phone: Start: 07-03-2023 MRI of small intestine Dr. John Serrano Work Phone: Start: 06-22-20[address] Ultrasound elastogra phy of liver Dr. John Serrano Work Phone: Start: 06-15-2023 Plain chest X-ray Dr. Veda Serrano Work Phone: Start: 06-05-2023 Bacteria identified in Blood by Culture Dr. John Serrano Work Phone: Start: 06-05-2023 Computed tomography of abdomen and pelvis with contrast Dr. John Serrano Work Phone: Start: 06-05-[address] John Serrano Work Phone: Start: 06-03-2023 Measurement of occul t blood in stool specimen using immunoassay Dr. John Serrano Work Phone: Plan of Treatment Date Care Activity Detail Author Start: 12-04-2041 Zoster Vaccines (1 of 2) Zoster Vaccines (1 of 2) [facility] Start: 11-27-2025 End: 11-27-2025 Patient encounter procedure 11/27/2025 2:00 PM EDT Office Visit [facility] [address] [place] [phone] [place] [id number] [address] Department of Pediatrics-Neurology [place] [id number] [facility] Start: 11-14-2024 End: 11-14-2024 Patient encounter procedure 11/14/2024 2:00 PM EST Office Visit [facility] [address] [place] [phone] [place] [id number] [address] Department of Pediatrics-Neurology [place] [id number] [facility] Start: 05-19-2024 COVID-19 Vaccine ( season) COVID-19 Vaccine ( season) [facility] Start: 05-19-2024 Influenza vaccination Influenza Vaccine (#1) [facility] Start: 11-30-2023 Procedure [facility] Start: 11-30-2023 Protein measurement [facility] Start: 08-16-2023 Iv infusion therapy/prophylaxis /dx 1st to 1 hr THER/PROPH/DIAG IV INF INIT [facility] Start: 07-03-2023 Following clinical pathway protocol [facility] Start: 06-06-2023 Patient discharge [facility] Start: 06-06-2023 Procedure [facility] Start: 06-05-2023 End: 06-05-2023 Blood culture [facility] Start: 06-05-2023 [facility] Start: 06-05-2023 Bacteria identified in Blood by Culture Blood Culture [facility] Start: 06-04-2023 End: 06-04-2023 [facility] Start: 06-03-2023 Administration of blood product [facility] Start: 06-03-2023 Administration of blood product [facility] Start: 06-03-2023 Application of intermittent pneumatic compression device [facility] Start: 06-03-2023 Following clinical pathway protocol [facility] Start: 06-03-2023 Transfusion of blood product [facility] Start: 06-03-2023 Ambulation without limitation [facility] Start: 06-03-2023 Assessment of risk of venous thromboembolism [facility] Start: 06-03-2023 Insertion of catheter into peripheral vein [facility] Start: 06-03-2023 Providing care according to standard [facility] Start: 06-03-2023 Referral to gastroenterology service [facility] Start: 06-03-2023 End: 06-03-2023 [facility] Start: 06-03-2023 Admission procedure [facility] Start: 06-03-2023 Verification routine [facility] Start: 06-03-2023 Administration of blood product [facility] Start: 06-03-2023 Leukocyte reduced red blood cells [facility] Start: 05-19-2023 Influenza vaccination Influenza Vaccine (#1) [facility] Start: 11-10-2022 FUV, Provider: William Kelly, Status: Pen, Time: 2:20 PM FUV, Provider: William Kelly, Status: Pen, Time: 2:20 PM [id number] Work Phone: Start: 12-04-2013 DTaP/Tdap/Td Vaccines (1 - Tdap) DTaP/Tdap/Td Vaccines (1 - Tdap) [facility] Start: 12-04-2010 Hepatitis B Vaccines (1 of 3 - 19+ 3-dose series) Hepatitis B Vaccines (1 of 3 - 19+ 3-dose series) [facility] Start: 12-04-2009 Hepatitis C screening Hepatitis C Screening [facility] Start: 12-04-2004 Varicella vaccination Varicella Vaccines (1 of 2 - 13+ 2-dose series) [facility] Start: 12-04-1992 Hepatitis B Surface Antibody Hepatitis B Surface Antibody [facility] Start: 12-04-1992 MMR Vaccines (1 of 1 - Standard series) MMR Vaccines (1 of 1 - Standard series) [facility] Start: 12-04-1992 Varicella vaccination Varicella Vaccines (1 of 2 - 2-dose childhood series) [facility] Start: 06-06-1992 COVID-19 Vaccine (#1) COVID-19 Vaccine (#1) [facility] Start: 1991 Cyanocobalamin vitamin b-12 Vitamin B-12 [facility] Start: 1991 Hepatitis B Vaccines (1 of 3 - 3-dose series) Hepatitis B Vaccines (1 of 3 - 3-dose series) [facility] Start: 1991 HIV screening HIV Screening [facility] Start: 1991 Lipid panel Lipid Panel [facility] Start: 1991 Screening for osteoporosis Bone Density Scan [facility] Start: 1991 TB Test TB Test [facility] Start: 1991 Vitamin D25-OH Vitamin D25-OH [facility] Start: 1991 Yearly Adult Physical Yearly Adult Physical [facility] C reactive protein [Mass/volume] in Serum or Plasma [facility] CBC W Auto Different ial panel - Blood [facility] Celiac disease screen oste r [facility] Erythrocyte sediment ation rate [facility] Ferritin [Mass/volum e] in Serum or Plasma [facility] Gliadin peptide IgA Ab [Units/volume] in Serum [facility] Gliadin peptide IgG Ab [Units/volume] in Serum [facility] Hematocrit [Volume Fraction] of Blood [facility] Hemoglobin [Mass/vol ume] in Blood [facility] Hepatitis A virus Ig M Ab [Presence] in Serum [facility] Hepatitis B core ant ibody measurement, IgM type [facility] Hepatitis B surface antigen measurement [facility] Hepatitis C antibody measurement [facility] IgA [Mass/volume] in Serum or Plasma [facility] IgE [Units/volume] i n Serum or Plasma [facility] IgG [Mass/volume] in Serum or Plasma [facility] IgM [Mass/volume] in Serum or Plasma [facility] In-vitro immunologic test [facility] Iron [Mass/mass] in Unspecified specimen [facility] Lactate dehydrogenas e measurement [facility] Measurement of immunoglobulin A in serum specimen [facility] Mycobacterium tuberc ulosis tuberculin stimulated gamma interferon [Presence] in Blood [facility] Neutrophil cytoplasm ic Ab.classic [Units/volume] in Serum [facility] P-ANCA measurement [facility] Patient referral [facility] Work Phone: Protein measurement [facility] Protein measurement [facility] Reticulocyte count [facility] Tissue transglutamin ase IgA Ab [Units/volume] in Serum [facility] Tissue transglutamin ase IgG Ab [Units/volume] in Serum [facility] Payers Date Payer Category Payer Self-pay 2022 Managed Care (Private) [employer] [id number] 2022 Unknown 2022 Unknown [id number] 1991 Unknown [id number] .356 1991 Unknown [id number] .627 1991 Unknown [id number] 2.16.840.1.325627.3.579.2 .1245 Unknown [id number] Unknown [id number] Unknown [id number] 2.16.840.1.341730.3.579.2 .462 Unknown [id number] 2.16.840.1.726330.3.579.2 .462 Unknown [id number] 2.16.840.1.097914.3.579.2 .462 Unknown [id number] 2.16.840.1.230027.3.579.2 .462 Unknown [id number] 2.16.840.1.092946.3.579.2 .462 Unknown [id number] 2.16.840.1.107450.3.579.2 .462 Unknown [id number] 2.16.840.1.834723.3.579.2 .462 Unknown [id number] 2.16.840.1.280240.3.579.2 .462 Unknown [id number] 2.16.840.1.484096.3.579.2 .462 Unknown [id number] 2.16.840.1.442492.3.579.2 .462 Unknown [id number] 2.16.840.1.277962.3.579.2 .462 Unknown [id number] 2.16.840.1.274013.3.579.2 .462 Unknown [id number] 2.16.840.1.179575.3.579.2 .462 Unknown [id number] 2.16.840.1.901344.3.579.2 .462 Unknown [id number] 2.16.840.1.016949.3.579.2 .462 Social History Date Type Detail Facility Start: 11-09-2023 Never smoker Never smoker [facility] Work Phone: Start: 06-03-2023 End: 10-16-2023 Tobacco smoking status NHIS Unknown if ever smoked [facility] Start: 1990 Sex Assigned At Male [facility] Start: 11-09-2023 End: 12-07-2023 Tobacco smoking status NHIS Never smoked tobacco [facility] Work Phone: Start: 11-09-2023 Tobacco use and exposure Smokeless tobacco non-user [facility] Work Phone: Start: 11-09-2023 End: 11-14-2024 Alcohol intake Lifetime non-drinker (finding) [facility] Work Phone: Start: 1990 Sex Assigned At Not on file [facility] Work Phone: Start: 11-09-2023 Gender identity Not on file [facility] Work Phone: Start: 11-04-2024 End: 11-14-2024 Exposure to SARS-CoV-2 (event) Not sure [facility] Start: 01-01-2025 Sex Male (finding) [facility] Goals Date Patient Goal Desired Activity /State Functional Status Date Assessment Result Facility 06-06-2023 Functional status Ambulates [facility] Work Phone: Mental Status Date Assessment Result Facility 07-03-2023 Cognitive function Voice/Name [facility] Work Phone: 06-06-2023 Cognitive function Voice/Name [facility] Work Phone: 06-03-2023 Cognitive function Level Of Cons ciousness Appropriate;Follows Commands;Drowsy [facility] Work Phone: Clinical Notes 11-11-2022 to 02-26-2025 Note Date & Type Note Facility 02-26-2025 Progress note Note Date/Time February 26, 2025 2:51pm [facility] [place] [address] OFFICE VISIT Date of Service: 02/26/25 MR#: [id number] Acct: [id number] Name: HERBIE KLEIN Rep #: [id number] : 1990 Provider: LALITO Rodriguez Age/Sex: 34/M Location: [facility] Status: Signed Intake Vital Signs 08/14/24 10:54 02/26/25 14:21 Height 6 ft 1 in 6 ft 1 in Weight: 301 lb BMI 39.6 Intake Visit Reasons: DISCUSS TREATMENT OPTIONS Chief Complaint: f/u Allergies No Known Allergies Allergy (Verified 07/18/24 13:30) Nurse's Note: OV 02/26/25 Pt here for a f/u and reports he is feeling well with no GI complaints. [facility] Medical History Wears glasses Depression Autism Non-smoker Social History (Updated 06/03/23 @ 15:[address] Sandro Dey, DO) Smoking Status: Never smoker alcohol intake: never substance use type: does not use HPI HPI Chief Complaint: f/u Details: HERBIE KLEIN, is a 34 M who presents to the office today for f/u. PMH autism spectrum high-functioning. *[facility] hospitalization 06.03.23-06.06.23 for management of anemia with chronic management of autism and depression. ? Biochemical ESR, GA(H717)ME, ANCA, celiac, hepatitis without pertinent abnormality. ?? Hgb L7.5, CRP H108, TB+, Crohn?s (apANCA, ACCA) CT abd/pel 06.05.23 hepatomegaly with fatty infiltration; wall thickening of TI, ICValve, ascending colon and descending/sigmoid/rectum with stranding consistentwith acute exacerbation of Crohn?s ? EGD and colonoscopy 06.05.23 EGD mucosal changes EOE, Savary 42F; medium hiatal hernia; medium polypoid pyloric mass, non-necrotizing granulomatous inflammation; duodenitis. Colonoscopy hemorrhoid; rectum through splenic flexure inflammation with aphthous ulcerations. Acute colitis with cryptitis, crypt abscesses, glandular distortion, granulation and fibrinopurulent material Contact 06.15.23 to discuss results and workup need. If repeat TB and/or CXR are positive needs referral to infectious disease. Mother voiced understanding regarding workup and needs. Biochemical CBC (hgb L8.2/anemia), haptoglobin, coag, CMP (calcium L7.7), LFT, LDH, A1c, STEPHANI, AFP, ceruloplasmin, ammonia, ferritin, copper, IGLESIA comp, ASM, AMA, HIV, TB without pertinent abnormality ? ESR H34, CRP H5.18 ? CXR 06.15.23 hyperinflation of lungs consistent with COPD. No evidence of TB US/elastography 06.22.23 hepatic measurement 17.3, fatty infiltration, stiffness 6.6kPa MREnterography 07.04.23 multiple small bowel loops at TI with circumferential wall thickening with mucosal hyperenhancement; moderate to severe wall thickening of transverse, descending, sigmoid and rectum with mucosal hyperenhancement. OV 3..24 mother reports she is not observing as much urgency with BM and feelsthe frequency has reduced. OV 7..24 pt reports that he is feeling well overall and denies GI symptoms of concern at this time. Pt reports 2 soft bm per day; occasional blood when he wipes. Mother reports that pt has mentioned feeling better on the Q4W dosing. OV 10.31.24 Pt has been doing well. He has no GI symptoms or concerns today. Hismother has questions regarding his prednisone. OV 2.20.25 pt reports that he is feeling well overall and denies GI symptoms of concern at this time. Pt's mother has questions about lab work and prednisone dosage. Pt continues with Q4W stelara dosing; injection given today at visit. OV 6.11.25 Pt doing well today. He denies abd pain, diarrhea or blood in his stool. He does have some joint pain. ROS Const Constitutional: No anorexia, fatigue, fever(s), weight change or sleep problems Eyes Eyes: No change in vision ENT ENT: No abnormal hearing, difficulty swallowing, mouth lesions, tongue swelling or throat swelling Resp Respiratory: No cough or shortness of breath Cardio Cardiology: No chest pain at rest, chest pain with exertion, shortness of breathor dyspnea on exertion Gastro GI: No difficulty swallowing Genitourinary Male: No difficulty urinating or burning urination Musc Musculoskeletal: No joint pain, joint swelling, muscle weakness or decreased muscle mass Skin Skin: No hair loss in leg, yellowing of the eye, itchy eyes, rash, skin ulcer orskin swelling Neuro Neurology: No abnormal hearing, abnormal movements, confusion, unsteady gait/balance or memory loss Psych Psychiatric: No anxiety, No confusion and No memory loss Endo Endocrine: No fatigue or weight change Aller/Imm Allergy/Immunologic: No itchy eyes, throat swelling or tongue swelling Eric/Lymp Hematologic/Lymphatic: No easy bleeding, easy bruising or enlarged lymph nodes Exam Const General: cooperative and healthy appearing Resp Effort & Inspection: normal respiratory effort Cardio Rate: regular rate Rhythm: regular rhythm GI Inspection: normal to inspection Palpation: soft Office Procedures Injections stelara: Procedure performed by: Suly Duval Site of injection: right deltoid IM Dose of injection: 90mg/ml Comments: pt tolerated well Lot [id number] EXP 04/2027 Assessment and Plan Assessment and Plan (1) Crohn's disease: Status: Chronic Plan: Herbie is a 34 yo male pt here today for f/u regarding his Crohns disease. Pt has been stable for a few months however recent calprotectin jumped into the 800s. He denies any worsening in his symptoms. Pt already on q4 dosing of Stelara. Discussed with him and his mother the need to switch therapies. he was agreeable. Will discuss with Dr. Sandoval what medication he would like to switch to. -Discuss with Dr. Sandoval which biologic he should be switched to -f/u in [address] Sandoval Coding Level of Care Code Off vis,est,level 3 Diagnoses Crohn's disease K50.90 02/26/25 3675 <Electronically signed by Michelle STARKEY> Date _ Michelle STARKEY Cosigner Signature: Date (if applicable) CC: ~ [facility] Work Phone: 1(991) 767-538206-11-2025 Evaluation note* Diagnosis Onset Date Resolution Status Admit Date Crohn's disease chronic February 1:52pm Anemia chronic April 24 1:23pm Crohn's disease chronic April 1:23pm [facility] Work Phone: [phone] [facility] [address] [place] [address] OFFICE VISIT Date of Service: 02/26/25 MR#: [id number] Acct: [id number] Name: HERBIE KLEIN Rep #: [id number] : 1990 Provider: LALITO Rodriguez Age/Sex: 34/M Location: [facility] Status: Signed Intake Vital Signs 08/14/24 10:54 02/26/25 14:21 Height 6 ft 1 in 6 ft 1 in Weight: 301 lb BMI 39.6 Intake Visit Reasons: DISCUSS TREATMENT OPTIONS Chief Complaint: f/u Allergies No Known Allergies Allergy (Verified 07/18/24 13:30) Nurse's Note: OV 02/26/25 Pt here for a f/u and reports he is feeling well with no GI complaints. [facility] Medical History Wears glasses Depression Autism Non-smoker Social History (Updated 06/03/23 @ 15:[address] Sandro Dey, ) Smoking Status: Never smoker alcohol intake: never substance use type: does not use HPI HPI Chief Complaint: f/u Details: HERBIE KLEIN, is a 34 M who presents to the office today for f/u. PMH autism spectrum high-functioning. *[facility] hospitalization 06.03.23-06.06.23 for management of anemia with chronic management of autism anddepression. ? Biochemical ESR, GA(H717)ME, ANCA, celiac, hepatitis without pertinent abnormality. ?? Hgb L7.5, CRP H108, TB+, Crohn?s (apANCA, ACCA) CT abd/pel 06.05.23 hepatomegaly with fatty infiltration; wall thickening of TI, ICValve, ascending colon and descending/sigmoid/rectum with stranding consistentwith acute exacerbation of Crohn?s ? EGD and colonoscopy 06.05.23 EGD mucosal changes EOE, Savary 42F; medium hiatal hernia; medium polypoid pyloric mass, non-necrotizing granulomatous inflammation; duodenitis. Colonoscopy hemorrhoid; rectum through splenic flexure inflammation with aphthous ulcerations. Acute colitis with cryptitis, crypt abscesses, glandular distortion, granulation and fibrinopurulent material Contact 06.15.23 to discuss results and workup need. If repeat TB and/or CXR are positive needs referral to infectious disease. Mother voiced understanding regarding workup and needs. Biochemical CBC (hgb L8.2/anemia), haptoglobin, coag, CMP (calcium L7.7), LFT, LDH, A1c, STEPHANI, AFP, ceruloplasmin, ammonia, ferritin, copper, IGLESIA comp, ASM, AMA, HIV, TB without pertinent abnormality ? ESR H34, CRP H5.18 ? CXR 06.15.23 hyperinflation of lungs consistent with COPD. No evidence of TB US/elastography .02.07 hepatic measurement 17.3, fatty infiltration, stiffness 6.6kPa MREnterography 07.04.23 multiple small bowel loops at TI with circumferential wall thickening with mucosal hyperenhancement; moderate to severe wall thickening of transverse, descending, sigmoid and rectum with mucosal hyperenhancement. OV 3.21.24 mother reports she is not observing as much urgency with BM and feelsthe frequency has reduced. OV 7.11.24 pt reports that he is feeling well overall and denies GI symptoms of concern at this time. Pt reports 2 soft bm per day; occasional blood when he wipes. Mother reports that pt has mentioned feeling better on the Q4W dosing. OV 10.31.24 Pt has been doing well. He has no GI symptoms or concerns today. Hismother has questions regarding his prednisone. OV 2.20.25 pt reports that he is feeling well overall and denies GI symptoms of concern at this time. Pt's mother has questions about lab work and prednisone dosage. Pt continues with Q4W stelara dosing; injection given today at visit. OV 6.11.25 Pt doing well today. He denies abd pain, diarrhea or blood in his stool. He does have some joint pain. ROS Const Constitutional: No anorexia, fatigue, fever(s), weight change or sleep problems Eyes Eyes: No change in vision ENT ENT: No abnormal hearing, difficulty swallowing, mouth lesions, tongue swelling or throat swelling Resp Respiratory: No cough or shortness of breath Cardio Cardiology: No chest pain at rest, chest pain with exertion, shortness of breathor dyspnea on exertion Gastro GI: No difficulty swallowing Genitourinary Male: No difficulty urinating or burning urination Musc Musculoskeletal: No joint pain, joint swelling, muscle weakness or decreased muscle mass Skin Skin: No hair loss in leg, yellowing of the eye, itchy eyes, rash, skin ulcer orskin swelling Neuro Neurology: No abnormal hearing, abnormal movements, confusion, unsteady gait/balance or memory loss Psych Psychiatric: No anxiety, No confusion and No memory loss Endo Endocrine: No fatigue or weight change Aller/Imm Allergy/Immunologic: No itchy eyes, throat swelling or tongue swelling Eric/Lymp Hematologic/Lymphatic: No easy bleeding, easy bruising or enlarged lymph nodes Exam Const General: cooperative and healthy appearing Resp Effort & Inspection: normal respiratory effort Cardio Rate: regular rate Rhythm: regular rhythm GI Inspection: normal to inspection Palpation: soft Office Procedures Injections stelara: Procedure performed by: Suly Duval Site of injection: right deltoid IM Dose of injection: 90mg/ml Comments: pt tolerated well Lot [id number] EXP 04/2027 Assessment and Plan Assessment and Plan (1) Crohn's disease: Status: Chronic Plan: Herbie is a 34 yo male pt here today for f/u regarding his Crohns disease. Pt has been stable for a few months however recent calprotectin jumped into the 800s. He denies any worsening in his symptoms.Pt already on q4 dosing of Stelara. Discussed with him and his mother the need to switch therapies.he was agreeable. Will discuss with Dr. Sandoval what medication he would like to switch to. -Discuss with Dr. Sandoval which biologic he should be switched to -f/u in [address] Sandoval Coding Level of Care Code Off vis,est,level 3 Diagnoses Crohn's disease K50.90 02/26/25 1451 sov PA> Date _ Michelle STARKEY Clare Signature: Date (if applicable) CC: ~ [facility]02-27-2025 History of Present illness Narrative* William Kelly MD - 11/14/2024 2:00 PM EST Subjective Herbie Klein is a 33 y.o. man with anxiety. Anxiety Herbie is a 33 year old man with ASD and anxiety. He takes sertraline 100 mg daily with good effect. Mood is usually good. 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 He has a woodworking hobby that is occasionally done. He changed from [employer] to [employer] and[employer] activities. He is sleeping and eating adequately (sleeps till noon and is awake most of the night). He is living in an apartment attached to his sister's home (they bought it from his parents). He interacts withhis nieces (attends their activities). Review of Systems All other systems have been reviewed with no other pertinent positives. He has Crohn's disease (initially manifested by diarrhea and anemia) on Stellara. He is feeling better since August 2023. He has weight gain associated with prednisone use. Objective Neurological Exam Mental Status Awake and alert. Good mood Speaks with short utterances Has a sense of humor. Motor No abnormal involuntary movements. Physical Exam Constitutional: General: He is awake. Neurological: Mental Status: He is alert. Assessment/Plan Herbie is doing well. Anxiety is controlled. Mood is good. No change in medication. Renewed prescription. Call if problems Follow up in 1 year documented in this [facility] Work Phone: 1(475) 347-761002-27-2025 Instructions* Patient Instructions* William Kelly MD - 11/14/2024 2:00 PM EST Herbie is doing well. Anxiety is controlled. Mood is good. No change in medication. Renewed prescription. Call if problems Follow up in 1 year documented in this [facility] Work Phone: 1(982) 295-875202-20-2025 Evaluation note* Diagnosis Onset Date Resolution Status Admit Date Anemia chronic November 07, 2024 2:49pm Crohn's disease chronic November 07, 2024 2:49pm [facility] Work Phone: 1(134) 895-922402-20-2025 Evaluation note* Diagnosis Onset Date Resolution Status Admit Date Anemia chronic November 07, 2024 2:49pm Crohn's disease chronic November 07, 2024 2:49pm Crohn's disease chronic February 1:52pm [facility] Work Phone: 1([phone]) 539-455102-22-2024 History of Present illness Narrative* William Kelly MD - 11/09/2023 2:00 PM EST Subjective Herbie Klein is a 32 y.o. [...] He changed from [employer] to [employer] and tuul activities. He is sleeping and eating adequately (sleeps till noon and is awake most of the night). He is living in an apartment attached to his sister's home (they bought it from his parents). He interacts withhis nieces. Review of Systems All other systems [...] be in 1 year. [facility]: 1(280) 880-128702-22-2024 Instructions* Patient Instructions* William Kelly MD - 11/09/2023 2:00 PM EST Herbie is doing OK. Anxiety is reasonably controlled. 1. No change in sertraline dose. A prescription renewal with 11 refills was sent. Dose can be increased if needed. 2. Follow up will be in 1 year. [facility] Phone: 1([phone]) 790-161009-19-2023 Discharge summary Author Dank Washington [facility] June 06, 2023 10:57am Note Date/Time June 06, 2023 10:51am [facility] Medical Records Department [address] [place] [address] Discharge Summary 06/06/23 1049 MR#: [id number] Acct: [id number] Name: HERBIE KLEIN Rep #:[id number] : 1990 32 From: Dank Washington MD PCP: Dr. Marcio Barron DO Status:ADM I N Location: [place] [address] Providers Date of Admission: 06/03/23 Date of Discharge: 06/06/23 Primary Care Physician: Dr. Marcio Barron, Consultations 06/03/23 15:40 Consult: Gastroenterology Routine Consulting Provider: [facility] Reason for Consult: anemia EMERGENT Consult: No MD Notified: Yes Date Notified: 06/03/23 Time Notified: 15:03 Method of Notification: Text Reason For Visit: ANEMIA Diagnosis Discharge Diagnosis (1) Anemia: Status: Acute Code(s): D64.9 - Anemia, unspecified Qualifiers: Anemia type: unspecified type Qualified Code(s): D64.9 - Anemia, unspecified Plan Patient is a 32-year-old gentleman sent today ED by the primary care physician after patient was found to be anemic following work-up for significant fatigue hemoglobin was found to be 5.9 on admission 1. Microcytic anemia ? Suspected to be secondary to chronic blood loss anemia admitted to monitored bed transfused with 2 unit PRBC, started on Protonix as well as parenteral iron with consultation placed to GI. Patient seen in consultation by Dr. Sandoval withplanned upper and lower endoscopy and possibly capsule endoscopy. ? 06/06/2023 patient underwent colonoscopy as well as upper EGD results has been Colonoscopy Impressions : - Hemorrhoids found on perianal exam. - Inflammatory bowel disease. Inflammation was found in the anus, in the rectum, in the sigmoid colon, in the descending colon and in the splenic flexure. This was severe, new compared to previous examinations. Biopsied Upper GI endoscopy Impressions : - Esophageal mucosal changes consistent with eosinophilic esophagitis. Dilated. - Medium-sized hiatal hernia. 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 Biopsied. - Erythematous duodenopathy. Biopsied. -Case discussed with Dr. Sandoval with GI patient will be discharged home on prednisone 60 mg with plans for patient to follow-up with GI as outpatient 2. Depression ? Patient is on sertraline 3. Autism spectrum: Patient has Asperger's ? Complicating care. 4. DVT prophylaxis ? Chemoprophylaxis contraindicated given patient's significant anemia Time spent in the patient's overall evaluation,decision-making process, review of diagnostic data, adjustment of management, discussion with other providers, nursing nursing and ancillary staff involved in patient's care documentation, 35minutes Medications at Discharge Home Medications sertraline 100 mg tablet 100 mg PO DAILY Depression 06/03/23 polysaccharide iron complex 150 mg iron capsule (Ferric x-150) 150 mg PO DAILY #60 caps 06/06/23 prednisone 50 mg tablet 50 mg PO DAILY #60 tabs 06/06/23 Hospital Course Summary of Care Provided Minutes Spent on Discharge: 35 Physical Exam Narrative GENERAL: cooperative HEENT: Atraumatic; normocephalic EYES; Anicteric, Normal Conjunctiva NECK; supple, normal thyroid, RESPIRATORY: Diminished to auscultation CARDIOVASCULAR: Regular S1 S2, GI: soft, normoactive bowel sounds, : No Renal angle tenderness; EXTREMITIES: No edema, no clubbing, MUSCULOSKELETAL: no muscle wasting NEURO: Awake; no lateralizing signs. SKIN: No Rash PSYCH; Flat affect Weight / BMI Weight Weight: 72.9 kg Body Mass Index (BMI) 21.2 ABG / Lab / Microbiology Data 06/06/23 07:08 06/06/23 07:08 Laboratory: Laboratory Results - last 24 hr 06/03/23 13:42: Diff Path Review Reviewed 06/03/23 15:15: Diff Path Review Reviewed 06/05/23 04:58: Diff Path Review Reviewed 06/05/23 20:58: WBC 10.9, RBC 4.08 L, Hgb 7.8 L, Hct 28.0 L, MCV 68.6 L, MCH 19.1 L, MCHC 27.9 L, RDW Std Deviation 58.5 H, RDW Coeff of Miriam 24.9 H, Plt Count 409, MPV 7.7, Immature Gran % (Auto) 0.600, Neut % (Auto) 92.7 H, Lymph % (Auto) 1.2 L, Cochran % (Auto) 5.1, Eos % (Auto) 0.2, Baso % (Auto) 0.2, Absolute Neuts (auto) 10.1 H, Absolute Lymphs (auto) 0.13 L, Nucleated RBC % 0, Differential Comment SCANNED, Sodium 137, Potassium 3.2 L, Chloride 105, Carbon Dioxide 25.0, Anion Gap 7, BUN 6 L, Creatinine 1.07, Estim Creat Clear Calc 103.14, Est GFR (MDRD) Af Amer 103, Est GFR (MDRD) Non-Af 85, BUN/Creatinine Ratio 5.6 L, Glucose 99, Calcium 7.4 L 06/06/23 07:08: WBC 6.9, RBC 3.92 L, Hgb 7.5 L, Hct 27.1 L, MCV 69.1 L, MCH 19.1L, MCHC 27.7 L, RDW Std Deviation 60.4 H, RDW Coeff of Miriam 25.3 H, Plt Count TNP, MPV 8.1, Immature Gran % (Auto) 0.700, Neut % (Auto) 91.8 H, Lymph % (Auto) 2.0 L, Cochran % (Auto) 5.4, Eos % (Auto) 0.0, Baso % (Auto) 0.1, Absolute Neuts (auto) 6.3, Absolute Lymphs (auto) 0.14 L, Nucleated RBC % 0, Platelet Estimate ADEQUATE, ESR 18, Sodium 133 L, Potassium 3.3 L, Chloride 103, Carbon Dioxide 22.0, Anion Gap 8, BUN 5 L, Creatinine 1.21, Estim Creat Clear Calc 91.21, Est GFR (MDRD) Af Amer 90, Est GFR (MDRD) Non-Af 74, BUN/Creatinine Ratio 4.1 L, Glucose 93, Calcium 7.1 L, C-React Prot Ext Range 108.00 H Microbiology: Microbiology 06/03/23 14:12 Stool Stool Occult Blood (AURY) - Final Occult Blood Positive Radiography Diagnostic Testing: Radiology Impression Abdomen/Pelvis CT 06/05/23 13:30 IMPRESSION: Findings consistent with known Crohn''s disease with most severe acute involvement of the descending colon and anorectal segments at this time Electronically Signed: Pancho Valenzuela MD at 17:58 EDT Reading Location ID and State: [facility] / [place] Tel , Service support , D/C Instructions Discharge Diet: No restrictions Discharge Activity: Return to Normal Activity Call your doctor if you observe: Fever of 101 or Higher, Shortness of breath, Fainting spells and Chest pain Meaningful Use Info Meaningful Use Diagnoses (Choose all that apply): None applicable Discharge Plan Admission Admit Date/Time: 06/03/23 14:57 Attending Provider: Dank Washington Primary Care Provider: Marcio Barron Consulting Providers: Sandro Dey Discharge Orders/Prescriptions Prescriptions: New prednisone 50 mg tablet 50 mg PO DAILY Qty: 60 0RF polysaccharide iron complex [Ferric x-150] 150 mg iron capsule 150 mg PO DAILY Qty: 60 0RF Continued sertraline 100 mg tablet 100 mg PO DAILY Referrals / Follow Up: Marcio Barron DO [Primary Care Provider] - Within 1 Week FriendEphraim DO [Med Staff - Active Staff] - Within 1 Week Disposition Disposition (needs filled in before D/C Order can be placed): Home, Self Care Charges/Coding Visit Charges Inpatient E&M: 70843 Disch Hosp >30min 06/06/23 1057 <Electronically signed by Dank Washington MD> Cosigner Signature (if applicable): CC: Dr. Marcio Barron, DO; Dr. Dank Washington MD~ Signed [facility] Work Phone: 1(960) 673-377709-19-2023 Progress note Author Dank Washington [facility] June 06, 2023 10:49am Note Date/Time June 06, 2023 7:46am [facility] Medical Records Department [address] [place] [address] Progress Note - Hospitalist 06/06/23 0744 MR#: [id number] Acct: [id number] Name: HERBIE KLEIN Rep #:[id number] : 1990 32 From: Dank Washington MD PCP: Dr. Marcio Barron DO Status:ADM I N Location: [place] [address] Reason for Visit Reason for Visit: Diagnoses Anemia, unspecified (06/03/23) Subjective Subjective Patient underwent EGD and colonoscopy today prior results are as below Objective Data Objective Data Vital Signs: Vital Signs Temp Pulse Resp BP Pulse Ox O2 Del Method 102.5 F H 112 H 18 118/61 97 Room Air 06/06/23 03:02 06/06/23 03:02 06/06/23 03:02 06/06/23 03:02 06/06/23 03:02 06/06/23 03:02 Oxygen Delivery Method Room Air Weight: 72.9 kg Body Mass Index (BMI) 21.2 Intake & Output: Intake and Output for Last 24 Hours 06/04/23 06/05/23 06/06/23 23:59 23:59 23:59 Intake Total 3950 / 3950 1128.33 / 1488.33 1531.67 / 1531.67 Balance 3950 / 3950 1128.33 / 1488.33 1531.67 / 1531.67 Lab / Micro Data 06/06/23 07:08 06/06/23 07:08 Labs: Laboratory Results - last 24 hr 06/03/23 13:42: Diff Path Review Reviewed 06/03/23 15:15: Diff Path Review Reviewed 06/03/23 21:17: Vitamin B12 827 06/05/23 04:58: Diff Path Review Reviewed 06/05/23 20:58: WBC 10.9, RBC 4.08 L, Hgb 7.8 L, Hct 28.0 L, MCV 68.6 L, MCH 19.1 L, MCHC 27.9 L, RDW Std Deviation 58.5 H, RDW Coeff of Miriam 24.9 H, Plt Count 409, MPV 7.7, Immature Gran % (Auto) 0.600, Neut % (Auto) 92.7 H, Lymph % (Auto) 1.2 L, Cochran % (Auto) 5.1, Eos % (Auto) 0.2, Baso % (Auto) 0.2, Absolute Neuts (auto) 10.1 H, Absolute Lymphs (auto) 0.13 L, Nucleated RBC % 0, Differential Comment SCANNED, Sodium 137, Potassium 3.2 L, Chloride 105, Carbon Dioxide 25.0, Anion Gap 7, BUN 6 L, Creatinine 1.07, Estim Creat Clear Calc 103.14, Est GFR (MDRD) Af Amer 103, Est GFR (MDRD) Non-Af 85, BUN/Creatinine Ratio 5.6 L, Glucose 99, Calcium 7.4 L 06/06/23 07:08: WBC 6.9, RBC 3.92 L, Hgb 7.5 L, Hct 27.1 L, MCV 69.1 L, MCH 19.1L, MCHC 27.7 L, RDW Std Deviation 60.4 H, RDW Coeff of Miriam 25.3 H, Plt Count 329, MPV 8.1, Immature Gran % (Auto) 0.700, Neut % (Auto) 91.8 H, Lymph % (Auto)2.0 L, Cochran % (Auto) 5.4, Eos % (Auto) 0.0, Baso % (Auto) 0.1, Absolute Neuts (auto) 6.3, Absolute Lymphs (auto) 0.14 L, Nucleated RBC % 0, Sodium 133 L, Potassium 3.3 L, Chloride 103, Carbon Dioxide 22.0, Anion Gap 8, BUN 5 L, Creatinine 1.21, Estim Creat Clear Calc 91.21, Est GFR (MDRD) Af Amer 90, Est GFR (MDRD) Non-Af 74, BUN/Creatinine Ratio 4.1 L, Glucose 93, Calcium 7.1 L Micro: Microbiology 06/03/23 14:12 Stool Stool Occult Blood (AURY) - Final Occult Blood Positive Radiography Diagnostic Testing: Radiology Impression Abdomen/Pelvis CT 06/05/23 13:30 IMPRESSION: Findings consistent with known Crohn''s disease with most severe acute involvement of the descending colon and anorectal segments at this time Electronically Signed: Pancoh Valenzuela MD at 17:58 EDT Reading Location ID and State: [address] [place] [address] Tel , Service support , Physical Exam Narrative GENERAL: cooperative HEENT: Atraumatic; normocephalic EYES; Anicteric, Normal Conjunctiva NECK; supple, normal thyroid, RESPIRATORY: Diminished to auscultation CARDIOVASCULAR: Regular S1 S2, GI: soft, normoactive bowel sounds, : No Renal angle tenderness; EXTREMITIES: No edema, no clubbing, MUSCULOSKELETAL: no muscle wasting NEURO: Awake; no lateralizing signs. SKIN: No Rash PSYCH; Flat affect Assessment & Plan Assessment/Plan (1) Anemia: QUALIFIERS: Anemia type: unspecified type Qualified Code(s): D64.9 - Anemia, unspecified PLAN: Plan Patient is a 32-year-old gentleman sent today ED by the primary care physician after patient was found to be anemic following work-up for significant fatigue hemoglobin was found to be 5.9 on admission 1. Microcytic anemia ? Suspected to be secondary to chronic blood loss anemia admitted to monitored bed transfused with 2 unit PRBC, started on Protonix as well as parenteral iron with consultation placed to GI. Patient seen in consultation by Dr. Sandoval withplanned upper and lower endoscopy and possibly capsule endoscopy. ? 06/06/2023 patient underwent colonoscopy as well as upper EGD results has been Colonoscopy Impressions : - Hemorrhoids found on perianal exam. - Inflammatory bowel disease. Inflammation was found in the anus, in the rectum, in the sigmoid colon, in the descending colon and in the splenic flexure. This was severe, new compared to previous examinations. Biopsied Upper GI endoscopy Impressions : - Esophageal mucosal changes consistent with eosinophilic esophagitis. Dilated. - Medium-sized hiatal hernia. 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 Biopsied. - Erythematous duodenopathy. Biopsied. -Case discussed with Dr. Sandoval with GI patient will be discharged home on prednisone 60 mg with plans for patient to follow-up with GI as outpatient 2. Depression ? Patient is on sertraline 3. Autism spectrum: Patient has Asperger's ? Complicating care. 4. DVT prophylaxis ? Chemoprophylaxis contraindicated given patient's significant anemia Time spent in the patient's overall evaluation,decision-making process, review of diagnostic data, adjustment of management, discussion with other providers, nursing nursing and ancillary staff involved in patient's care documentation, 35minutes Charges/Coding Visit Charges Inpatient E&M: 80166 Subs Hosp L2 06/06/23 1049 <Electronically signed by Dank Washington MD> Cosigner Signature (if applicable): CC: ~ Signed [facility] Work Phone: 1(197) 857-184209-19-2023 Progress note Author Dank [facility] June 06, 2023 7:47am Note Date/Time June 05, 2023 11:04am [facility] Medical Records Department [address] [place] [address] Progress Note - Hospitalist 06/05/23 1102 MR#: [id number] Acct: [id number] Name: HERBIE KLEIN Rep #:[id number] : 1990 32 From: Dank Washington MD PCP: Dr. Marcio Barron, DO Status:ADM I N Location: [place] [address] Reason for Visit Reason for Visit: Diagnoses Anemia, unspecified (06/03/23) Objective Data Objective Data Vital Signs: Vital Signs Temp Pulse Resp BP Pulse Ox O2 Del Method 97.8 F 81 16 106/64 99 Room Air 06/05/23 07:58 06/05/23 07:58 06/05/23 07:58 06/05/23 07:58 06/05/23 07:58 06/05/23 07:58 Oxygen Delivery Method Room Air Weight: 72.9 kg Body Mass Index (BMI) 21.2 Intake & Output: Intake and Output for Last 24 Hours 06/03/23 06/04/23 06/05/23 23:59 23:59 23:59 Intake Total 795 / 1295 3950 / 3950 Balance 795 / 1295 3950 / 3950 Lab / Micro Data 06/05/23 04:58 06/04/23 07:17 Labs: Laboratory Results - last 24 hr 06/03/23 21:17: Vitamin B12 827 06/05/23 04:58: WBC 3.2 L, RBC 4.06 L, Hgb 7.8 L, Hct 28.1 L, MCV 69.2 L, MCH 19.2 L, MCHC 27.8 L, RDW Std Deviation 58.5 H, RDW Coeff of Miriam 24.4 H, Plt Count 514 H, MPV 8.1, Immature Gran % (Auto) 0.300, Neut % (Auto) 63.6, Lymph % (Auto) 15.6 L, Cochran % (Auto) 17.4 H, Eos % (Auto) 2.5, Baso % (Auto) 0.6, Absolute Neuts (auto) 2.0, Absolute Lymphs (auto) 0.50 L, Nucleated RBC % 0, Diff Path Review January, Platelet Estimate SLT INC, Hypochromasia 1+, Anisocytosis 1+, TSH 4.79 H Micro: Microbiology 06/03/23 14:12 Stool Stool Occult Blood (AURY) - Final Occult Blood Positive Assessment & Plan Assessment/Plan (1) Anemia: QUALIFIERS: Anemia type: unspecified type Qualified Code(s): D64.9 - Anemia, unspecified PLAN: Plan Patient is a 32-year-old gentleman sent today ED by the primary care physician after patient was found to be anemic following work-up for significant fatigue hemoglobin was found to be 5.9 on admission 1. Microcytic anemia ? Suspected to be secondary to chronic blood loss anemia admitted to monitored bed transfused with 2 unit PRBC, started on Protonix as well as parenteral iron with consultation placed to GI. Patient seen in consultation by Dr. Sandoval withplanned upper and lower endoscopy and possibly capsule endoscopy. 2. Depression ? Patient is on sertraline 3. Autism spectrum: Patient has Asperger's ? Complicating care. 4. DVT prophylaxis ? Chemoprophylaxis contraindicated given patient's significant anemia Time spent in the patient's overall evaluation,decision-making process, review of diagnostic data, adjustment of management, discussion with other providers, nursing nursing and ancillary staff involved in patient's care documentation, 40minutes Charges/Coding Visit Charges Inpatient E&M: 81791 Subs Hosp L2 06/05/23 1104 <Electronically signed by Dank Washington MD> Cosigner Signature (if applicable): CC: ~ Signed ADDENDUM by Dr. Dank [place] MD on 06/06/23 at 0747 Addendum GENERAL: cooperative HEENT: Atraumatic; normocephalic EYES; Anicteric, Normal Conjunctiva NECK; supple, normal thyroid, RESPIRATORY: Diminished to auscultation CARDIOVASCULAR: Regular S1 S2, GI: soft, normoactive bowel sounds, : No Renal angle tenderness; EXTREMITIES: No edema, no clubbing, MUSCULOSKELETAL: no muscle wasting NEURO: Awake; no lateralizing signs. SKIN: No Rash PSYCH; Flat affect 06/06/23 0747<Electronically signed by Dank [place] MD> Cosigner Signature (if applicable): cc: ~* Signed [facility] Work Phone: 1(843) 914-828309-18-2023 Procedure [facility] 06-05-2023 Procedure [facility]09-18-2023 Procedure note [facility]09-18-2023 Procedure [facility] 06-04-2023 Consult note Author Ephraim Friend [facility] June 04, 2023 5:23pm Note Date/Time June 04, 2023 5:23pm [facility] Medical Records Department [address] [place] [address] Consultation - GI 06/04/23 1720 MR#: [id number] Acct: [id number] Name: HERBIE KLEIN Rep #:[id number] : 1990 32 From: Ephraim Friend PCP: Dr. Marcio Barron DO Status:ADM I N Location: [place] [address] HPI Consult Data Date of Consult: 06/04/23 HPI Narrative Reason for Consultation: Anemia HPI Narrative: HERBIE KLEIN, is a 32 M who presents for abnormal labs. He was sent in by his PCP when he was discovered to have a hemoglobin of 5.8. His baseline runs in between 14 and 15. Almost all of history is obtained from the chart and the patient's mother. He had a low hemoglobin on a test that was done yesterday. This was done because he has been fatigued recently. He has noted some red on toilet paper but no other bleeding. No black or tarry stools. No blood thinners. No history of GI bleeding. No history of colonoscopy. No abdominal pain or other associated symptoms or signs of fatigue. There is no family history of colon cancer. He does not take any NSAIDs. He does take sertraline. He does not take any more medicines on a daily basis. [facility] Medical History (Updated 06/03/23 @ 15:[address] Sandro Dey DO) Autism spectrum Home Medications sertraline 100 mg tablet 100 mg PO DAILY Depression 06/03/23 [History Last Taken 06/03/23] Allergy/AdvReac Type Severity Reaction Status Date / Time No Known Allergies Allergy Verified 06/03/23 13:15 Social History (Updated 06/03/23 @ 15:[address] Sandro Dey DO) Smoking Status: Never smoker alcohol intake: never substance use type: does not use ROS Review of Systems ROS Unobtainable: other Constitutional Constitutional: Denies fatigue, fever(s), poor appetite, weight gain or weight loss ENT HEENT: Denies mouth lesions Cardiovascular Cardiovascular: Denies abdominal bloating, abdominal edema or abdominal pain Respiratory/Chest Respiratory/Chest: Denies change in mental status, change in phlegm color, chestcongestion or chest tightness Gastrointestinal Gastrointestinal: Denies belching, bloating, change in bowel habits, change in stool character, chewing difficulty, coffee ground emesis, constipation, cramping, diarrhea, dyspepsia, dysphagia, early satiety, excessive flatus, fecalincontinence, heartburn, hematemesis, hematochezia, hemorrhoids, loose stools, melena, nausea, odynophagia, rectal bleeding, tenesmus, vomiting or weight changes Genitourinary Genitourinary: Denies abdominal discomfort, burning urination or itching Musculoskeletal Musculoskeletal: Reports as per HPI; Denies muscle weakness or myalgias Integumentary Integumentary: Denies jaundice Neurologic Neurologic: Denies lack of coordination or weakness Psychiatric Psychiatric: Denies confusion, depression, memory loss, mood swings, paranoia orsuicidal ideation Endocrine Endocrinology: Denies systems reviewed and no addt'l complaints, except as documented Hematologic/Lymphatic Hematologic/Lymphatic: Denies anemia, easy bleeding, easy bruising or lymphadenopathy Allergic/Immunologic Allergic/Immunologic: Denies systems reviewed and no addt'l complaints, except as documented Physical Exam Resp normal respiratory effort, no retractions, no use of accessory muscles and clearto auscultation bilaterally GI normal to inspection, nondistended, normoactive bowel sounds, soft to palpation,non-tender and non-distended Extremity normal to inspection Psych Psych Narrative: flat affect. Lab / Micro Data 06/04/23 08:25 06/04/23 07:17 Labs: Laboratory Results - last 24 hr 06/03/23 13:42: Iron 10 L, TIBC 171 L, Iron Saturation 5.8 L, Ferritin 2 L, Folate 16.60 06/03/23 16:09: Antibody Screen NEGATIVE, Crossmatch See Detail 06/03/23 16:09: Crossmatch See Detail 06/03/23 21:17: Hgb 6.6 L 06/04/23 02:21: Hgb 7.9 L, Hct 28.6 L 06/04/23 07:17: WBC Cancelled, Corrected WBC Cancelled, RBC Cancelled, Hgb Cancelled, Hct Cancelled, MCV Cancelled, MCH Cancelled, MCHC Cancelled, RDW Std Deviation Cancelled, RDW Coeff of Miriam Cancelled, Plt Count Cancelled, MPV Cancelled, Immature Gran % (Auto) Cancelled, Neut % (Auto) Cancelled, Lymph % (Auto) Cancelled, Cochran % (Auto) Cancelled, Eos % (Auto) Cancelled, Baso % (Auto)Cancelled, Absolute Neuts (auto) Cancelled, Absolute Lymphs (auto) Cancelled, Total Counted Cancelled, Neutrophils % (Manual) Cancelled, Band Neutrophils % Cancelled, Lymphocytes % (Manual) Cancelled, Monocytes % (Manual) Cancelled, Eosinophils % (Manual) Cancelled, Basophils % (Manual) Cancelled, Metamyelocytes% Cancelled, Myelocytes % Cancelled, Promyelocytes % Cancelled, Blast Cells % Cancelled, Plasma Cell % (Manual) Cancelled, Other Cells % Cancelled, Nucleated RBC % Cancelled, Nucleated RBCs/100 WBC Cancelled, Differential Comment Cancelled, Diff Path Review Cancelled, Hypersegmented Neuts Cancelled, Atypical Lymphocytes Cancelled, Reactive Lymphocytes Cancelled, Smudge Cells Cancelled, Toxic Granulation Cancelled, Toxic Vacuolation Cancelled, Dohle Bodies Cancelled, Jose Rods Cancelled, Platelet Estimate Cancelled, Plt Morphology Comment Cancelled, RBC Morphology Cancelled 06/04/23 07:17: RBC Morphology Cancelled, Polychromasia Cancelled, HypochromasiaCancelled, Poikilocytosis Cancelled, Basophilic Stippling Cancelled, Anisocytosis Cancelled, Microcytosis Cancelled, Macrocytosis Cancelled, Spherocytes Cancelled, Sickle Cells Cancelled, Target Cells Cancelled, Tear Drop Cells Cancelled, Ovalocytes Cancelled, Stomatocytes Cancelled, [place] Bodies Cancelled, Rocio Cells Cancelled, Bite Cells Cancelled, Crenated Cell Cancelled, Acanthocytes (Spur) Cancelled, Rouleaux Cancelled, Schistocytes Cancelled, Sodium 140, Potassium 3.7, Chloride 113 H, Carbon Dioxide 23.0, Anion Gap 4 L, BUN 9, Creatinine 0.89, Estim Creat Clear Calc 124.00, Est GFR (MDRD) Af Amer 129, Est GFR (MDRD) Non-Af 106, BUN/Creatinine Ratio 10.2, Glucose 75, Calcium 7.6 L, Total Bilirubin 0.20, AST 17, ALT 13 L, Alkaline Phosphatase 81, Total Protein 5.7 L, Albumin 1.4 L, Globulin 4.3 H, Albumin/Globulin Ratio 0.3 L 06/04/23 08:25: WBC 3.4 L, RBC 3.96 L, Hgb 7.7 L, Hct 27.6 L, MCV 69.7 L D, MCH 19.4 L, MCHC 27.9 L D, RDW Std Deviation 58.9 H, RDW Coeff of Miriam 24.3 H, Plt Count 436, MPV 8.2, Immature Gran % (Auto) 0.300, Neut % (Auto) 66.6, Lymph % (Auto) 14.3 L, Cochran % (Auto) 15.5 H, Eos % (Auto) 2.7, Baso % (Auto) 0.6, Absolute Neuts (auto) 2.2, Absolute Lymphs (auto) 0.48 L, Nucleated RBC % 0, Hypochromasia 2+, Anisocytosis 2+ Micro: Microbiology 06/03/23 14:12 Stool Stool Occult Blood (AURY) - Final Occult Blood Positive Assessment & Plan Assessment/Plan (1) Anemia: QUALIFIERS: Anemia type: unspecified type Qualified Code(s): D64.9 - Anemia, unspecified PLAN: Plan 32-year-old gentleman comes in with new onset anemia. Differential diagnosis does include celiac disease, angiodysplastic lesions, neoplasia, peptic ulcer disease secondary to H. pylori. He should undergo upper and lower endoscopy andpossible capsule endoscopy. I will also send off celiac disease labs and other labs to see if he has any other autoimmune disease associated with malabsorptionof iron. Agree with iron transfusions, blood transfusions and likely oral iron as an outpatient. Charges/Coding Visit Charges Inpatient E&M: 54532 Init Hosp L3 06/04/23 1723 <Electronically signed by Ephraim Friend > Cosigner Signature (if applicable): CC: Dr. Marcio Barron DO~ Signed [facility] Work Phone: [phone]) 908-733709-17-2023 Progress note Author Sandro Dey [facility] June 04, 2023 1:38pm Note Date/Time June 04, 2023 8:27am [facility] Medical Records Department [address] [place] [address] Progress Note - Hospitalist 06/04/23 0821 MR#: [id number] Acct: [id number] Name: HERBIE KLEIN Rep #:[id number] : 1990 32 From: Sandro Dey DO PCP: Dr. Marcio Barron DO Status:ADM I N Location: [place] [address] Reason for Visit Reason for Visit: Diagnoses Anemia, unspecified (06/03/23) Subjective Subjective No events overnight. Objective Data Objective Data Vital Signs: Vital Signs Temp Pulse Resp BP Pulse Ox O2 Del Method 36.0 C L 68 18 117/66 100 Room Air 06/04/23 06:00 06/04/23 06:00 06/04/23 06:00 06/04/23 06:00 06/04/23 06:00 06/04/23 08:17 Oxygen Delivery Method Room Air Weight: 72.9 kg Body Mass Index (BMI) 21.2 Intake & Output: Intake and Output for Last 24 Hours 06/02/23 06/03/23 06/04/23 23:59 23:59 23:59 Intake Total 795 / 1295 900 / 900 Balance 795 / 1295 900 / 900 Lab / Micro Data 06/04/23 08:25 06/04/23 07:17 Labs: Laboratory Results - last 24 hr 06/03/23 13:42: WBC 4.0 L, RBC 3.58 L, Hgb 5.8 L*, Hct 22.7 L, MCV 63.4 L, MCH 16.2 L, MCHC 25.6 L, RDW Std Deviation 41.9, RDW Coeff of Miriam 18.7 H, Plt Count 457 H, MPV 7.7, Immature Gran % (Auto) 0.500, Neut % (Auto) 72.0 H, Lymph % (Auto) 11.5 L, Cochran % (Auto) 13.5 H, Eos % (Auto) 2.0, Baso % (Auto) 0.5, Absolute Neuts (auto) 2.9, Absolute Lymphs (auto) 0.46 L, Nucleated RBC % 0, Diff Path Review January, Hypochromasia 2+, Anisocytosis 2+, Microcytosis 2+, PT 14.2, INR 1.1, APTT 32.0, Sodium 140, Potassium 3.4 L, Chloride 110 H, CarbonDioxide 26.0, Anion Gap 4 L, BUN 12, Creatinine 0.86, Estim Creat Clear Calc 129.35, Est GFR (MDRD) Af Amer 134, Est GFR (MDRD) Non-Af 111, BUN/Creatinine Ratio 14.0, Glucose 97, Calcium 8.2 L, Iron 10 L, TIBC 171 L, Iron Saturation 5.8 L, Ferritin 2 L, Total Bilirubin 0.20, AST 10 L, ALT 14 L, Alkaline Phosphatase 86, Total Protein 6.1 L, Albumin 1.7 L, Globulin 4.4 H, Albumin/Globulin Ratio 0.4 L, Folate 16.60, Blood Type Cancelled, Antibody Screen Cancelled 06/03/23 15:15: Hgb 5.5 L*, Hct 20.6 L, Diff Path Review January foll 06/03/23 16:09: Blood Type A POSITIVE, Antibody Screen NEGATIVE, Crossmatch See Detail 06/03/23 16:09: Crossmatch See Detail 06/03/23 21:17: Hgb 6.6 L 06/04/23 02:21: Hgb 7.9 L, Hct 28.6 L 06/04/23 07:17: WBC Cancelled, Corrected WBC Cancelled, RBC Cancelled, Hgb Cancelled, Hct Cancelled, MCV Cancelled, MCH Cancelled, MCHC Cancelled, RDW Std Deviation Cancelled, RDW Coeff of Miriam Cancelled, Plt Count Cancelled, MPV Cancelled, Immature Gran % (Auto) Cancelled, Neut % (Auto) Cancelled, Lymph % (Auto) Cancelled, Cochran % (Auto) Cancelled, Eos % (Auto) Cancelled, Baso % (Auto)Cancelled, Absolute Neuts (auto) Cancelled, Absolute Lymphs (auto) Cancelled, Total Counted Cancelled, Neutrophils % (Manual) Cancelled, Band Neutrophils % Cancelled, Lymphocytes % (Manual) Cancelled, Monocytes % (Manual) Cancelled, Eosinophils % (Manual) Cancelled, Basophils % (Manual) Cancelled, Metamyelocytes% Cancelled, Myelocytes % Cancelled, Promyelocytes % Cancelled, Blast Cells % Cancelled, Plasma Cell % (Manual) Cancelled, Other Cells % Cancelled, Nucleated RBC % Cancelled, Nucleated RBCs/100 WBC Cancelled, Differential Comment Cancelled, Diff Path Review Cancelled, Hypersegmented Neuts Cancelled, Atypical Lymphocytes Cancelled, Reactive Lymphocytes Cancelled, Smudge Cells Cancelled, Toxic Granulation Cancelled, Toxic Vacuolation Cancelled, Dohle Bodies Cancelled, Jose Rods Cancelled, Platelet Estimate Cancelled, Plt Morphology Comment Cancelled, RBC Morphology Cancelled 06/04/23 07:17: RBC Morphology Cancelled, Polychromasia Cancelled, HypochromasiaCancelled, Poikilocytosis Cancelled, Basophilic Stippling Cancelled, Anisocytosis Cancelled, Microcytosis Cancelled, Macrocytosis Cancelled, Spherocytes Cancelled, Sickle Cells Cancelled, Target Cells Cancelled, Tear Drop Cells Cancelled, Ovalocytes Cancelled, Stomatocytes Cancelled, [place] Bodies Cancelled, Neon Cells Cancelled, Bite Cells Cancelled, Crenated Cell Cancelled, Acanthocytes (Spur) Cancelled, Rouleaux Cancelled, Schistocytes Cancelled Micro: Microbiology 06/03/23 14:12 Stool Stool Occult Blood (AURY) - Final Occult Blood Positive Physical Exam Resp normal respiratory effort, no retractions, no use of accessory muscles and clearto auscultation bilaterally GI normal to inspection, nondistended, normoactive bowel sounds, soft to palpation,non-tender and non-distended Extremity normal to inspection Psych Psych Narrative: flat affect. Assessment & Plan Assessment/Plan (1) Anemia: QUALIFIERS: Anemia type: unspecified type Qualified Code(s): D64.9 - Anemia, unspecified PLAN: Iron-deficiency. Unknown source, but I would suspect a chronic GI loss. Improved after 2 units of PRBCs Iron 10, ferritin 2, Clear liquid diet for now. Consult GI. Patient received a bolus of 80 mg of pantoprazole in the emergency room. Continue with 40 twice daily IV Iron deficit 1900 Start Iron Sucrose 200mg daily for 3 days. Ferrous sulfate on discharge. PLAN: Plan Chronic conditions * Autism spectrum: Patient has Asperger's. May limit issues in regards to the patient does require a prep for colonoscopy how well he is going to take. His family can be involved and encouraged him to do so that may be of benefit. VTE prophylaxis with SCDs. DW pt's mother at bedside. Charges/Coding Visit Charges Inpatient E&M: 43496 Subs Hosp L2 06/04/23 1338 <Electronically signed by Sandro Dey DO> Cosigner Signature (if applicable): CC: ~ Signed [facility] Work Phone: [phone]) 714-599809-16-2023 History and physical note Author Sandro Dey [facility] June 03, 2023 3:14pm Note Date/Time June 03, 2023 3:08pm [facility] Medical Records Department [address] [place] [address] H&P Exam - Hospitalist 06/03/23 1503 MR#: [id number] Acct: [id number] Name: HERBIE KLEIN Rep #:[id number] : 1990 32 From: Sandro Dey DO PCP: Dr. Marcio Barron, DO Status:ADM I N Location: [place] [address] HPI - General General Date of Service: 06/03/23 Chief Complaint: Weakness. HPI Narrative HERBIE KLEIN, is a 32 M who presents with weakness. Patient had outpatient labs that showed that he was anemic and patient was advised to come to the emergency room. In the emergency room, patient was noted to have a hemoglobin of 5.8. Patient thinks that he may have had some blood in his stool a week or so ago but that resolved. Denies any melena. No overt hematochezia otherwise. Patient was typed and crossed for 1 unit of packed red blood cells. Patient hadno history of anemia in the past. [facility] Medical History (Updated 06/03/23 @ 15:[address] Sandro Dey, DO) Autism spectrum Allergy/AdvReac Type Severity Reaction Status Date / Time No Known Allergies Allergy Verified 06/03/23 13:15 Social History (Updated 06/03/23 @ 15:[address] Sandro Dey, ) Smoking Status: Never smoker alcohol intake: never substance use type: does not use Vital Signs Vital Signs Vital Signs: 06/03/23 13:14 06/03/23 13:48 Temperature 36.1 C L Temperature Source Temporal Pulse Rate 90 Respiratory Rate 18 Respiratory Effort Normal Non-Labored Respiratory Pattern Normal Blood Pressure 115/57 L Blood Pressure Mean 76 Pulse Ox 100 Oxygen Delivery Method Room Air Weight Weight: 73.482 kg Body Mass Index (BMI) 21.3 Physical Exam Const alert and no apparent distress Constitutional Narrative: Nontoxic. Reserved. Answers questions sparingly but mostly answers yes/no questions. Most of the history is actually obtained through the patient's mother who is at bedside. HEENT normocephalic and hearing grossly normal bilaterally Resp normal respiratory effort and no retractions Cardio regular rate, regular rhythm, S1 normal heart sound and S2 normal heart sound GI normal to inspection, nondistended, normoactive bowel sounds, soft to palpation,non-tender and non-distended Extremity normal to inspection Results Lab / Micro Data Attestation: I reviewed the patient's lab results. 06/03/23 13:42 06/03/23 13:42 Labs: Laboratory Results - last 24 hr 06/03/23 13:42: WBC 4.0 L, RBC 3.58 L, Hgb 5.8 L*, Hct 22.7 L, MCV 63.4 L, MCH 16.2 L, MCHC 25.6 L, RDW Std Deviation 41.9, RDW Coeff of Miriam 18.7 H, Plt Count 457 H, MPV 7.7, Immature Gran % (Auto) 0.500, Neut % (Auto) 72.0 H, Lymph % (Auto) 11.5 L, Cochran % (Auto) 13.5 H, Eos % (Auto) 2.0, Baso % (Auto) 0.5, Absolute Neuts (auto) 2.9, Absolute Lymphs (auto) 0.46 L, Nucleated RBC % 0, Diff Path Review May foll, Hypochromasia 2+, Anisocytosis 2+, Microcytosis 2+, PT 14.2, INR 1.1, APTT 32.0, Sodium 140, Potassium 3.4 L, Chloride 110 H, CarbonDioxide 26.0, Anion Gap 4 L, BUN 12, Creatinine 0.86, Estim Creat Clear Calc 129.35, Est GFR (MDRD) Af Amer 134, Est GFR (MDRD) Non-Af 111, BUN/Creatinine Ratio 14.0, Glucose 97, Calcium 8.2 L, Total Bilirubin 0.20, AST 10 L, ALT 14 L,Alkaline Phosphatase 86, Total Protein 6.1 L, Albumin 1.7 L, Globulin 4.4 H, Albumin/Globulin Ratio 0.4 L Micro: Microbiology 06/03/23 14:12 Stool Stool Occult Blood (AURY) - Final Occult Blood Positive Assessment & Plan Assessment/Plan (1) Anemia: QUALIFIERS: Anemia type: unspecified type Qualified Code(s): D64.9 - Anemia, unspecified PLAN: Appears to be macrocytic which would likely indicate, also given his lack of severe symptoms, that this has been more of a chronic process. Patient has been typed and crossed for 1 unit packed red blood cells. Check iron studies, B12, folate and TSH. Clear liquid diet for now. Consult GI. Patient will need endoscopy at some point, whether that is inpatient versus outpatient will be determined. Patient receiving a bolus of 80 mg of pantoprazole in the emergency room. Will continue with 40 twice daily IV PLAN: Plan Chronic conditions * Autism spectrum: Patient has Asperger's. May limit issues in regards to the patient does require a prep for colonoscopy how well he is going to take. His family can be involved and encouraged him to do so that may be of benefit. VTE prophylaxis with SCDs. Charges/Coding Visit Charges Inpatient E&M: 63797 Init Hosp L2 06/03/23 1514 <Electronically signed by Sandro Dey DO> Cosigner Signature (if applicable): CC: Dr. Marcio Barron DO; Dr. Sandro Dey DO~ Signed [facility] Work Phone: [phone]) [phone] Discharge summary Author John Serrano [facility] June 03, 2023 2:55pm Note Date/Time June 03, 2023 2:55pm [facility] Medical Records Department [address] [place] [address] Emergency Department Summary 06/03/23 MR#: [id number] Acct: [id number] Name: HERBIE KLEIN Rep #:[id number] : 1990 32 From: John Serrano MD PCP: Dr. Marcio Barron DO Status:REG E R Location: ED HPI History of Present Illness Chief Complaint: Abn Labs Onset/Context/Timing Onset: Yesterday Quality: hgb 5 Narrative Narrative: Patient presents for abnormal labs. He had a low hemoglobin on a test that was done yesterday. This was done because he has been fatigued recently. He has noted some red on toilet paper but no other bleeding. No black or tarry stools. No blood thinners. No history of GI bleeding. No history of colonoscopy. No abdominal pain or other associated symptoms or signs of fatigue. PFSH PFSH Allergy/AdvReac Type Severity Reaction Status Date / Time No Known Allergies Allergy Verified 06/03/23 13:15 Social History Smoking Status: Never smoker ROS ROS ED Constitutional Constitutional ED: Denies chills or fever(s) Eyes Eyes: Denies blurry vision ENT ENT ED: Denies ear pain Cardiovascular Cardiovascular: Denies chest pain Respiratory/Chest Respiratory/Chest: Denies dyspnea Gastrointestinal Gastrointestinal: Reports melena; Denies abdominal pain Genitourinary Genitourinary ED: Denies dysuria Musculoskeletal Musculoskeletal: Denies arthralgias Integumentary Denies abscess Neurologic Neurologic: Denies headache(s) Endocrine Endocrinology: Denies cold intolerance Allergic/Immunologic Allergic/Immunologic ED: Denies mouth swelling EXAM Physical Exam Const Vital Signs: 06/03/23 13:14 06/03/23 13:48 Temperature 97 F L Temperature Source Temporal Pulse Rate 90 Respiratory Rate 18 Respiratory Effort Normal Non-Labored Respiratory Pattern Normal Blood Pressure 115/57 L Blood Pressure Mean 76 Pulse Ox 100 Oxygen Delivery Method Room Air Positive well nourished and well developed General Appearance ED: well developed HEENT Reports moist mucous membranes Eyes EOMs intact bilaterally Neck no lymphadenopathy Resp normal respiratory effort Cardio regular rate and regular rhythm GI normal to inspection, nondistended, normoactive bowel sounds GI Narrative: External hemorrhoids noted Back/Spine no CVA tenderness Extremity normal to inspection Neuro Sensorium / Orientation: alert Skin no rashes or lesions noted MDM MDM MDM Narrative Medical decision making narrative: Patient's hemoglobin 5.8. Coags normal. Fecal occult blood test was positive. Patient is hemodynamically stable. Will treat with Protonix and packed RBCs. Discussed with the hospitalist who admit for further care Impression #1 GI bleeding Impression #2 anemia requiring transfusion Lab Data Attestation: I reviewed the patient's lab results. Labs: Laboratory Results - last 24 hr 06/03/23 13:42 WBC 4.0 L RBC 3.58 L Hgb 5.8 L* Hct 22.7 L MCV 63.4 L MCH 16.2 L MCHC 25.6 L RDW Std Deviation 41.9 RDW Coeff of Miriam 18.7 H Plt Count 457 H MPV 7.7 Immature Gran % (Auto) 0.500 Neut % (Auto) 72.0 H Lymph % (Auto) 11.5 L Cochran % (Auto) 13.5 H Eos % (Auto) 2.0 Baso % (Auto) 0.5 Absolute Neuts (auto) 2.9 Absolute Lymphs (auto) 0.46 L Nucleated RBC % 0 Diff Path Review May foll Hypochromasia 2+ Anisocytosis 2+ Microcytosis 2+ PT 14.2 INR 1.1 APTT 32.0 Sodium 140 Potassium 3.4 L Chloride 110 H Carbon Dioxide 26.0 Anion Gap 4 L BUN 12 Creatinine 0.86 Estim Creat Clear Calc 129.35 Est GFR (MDRD) Af Amer 134 Est GFR (MDRD) Non-Af 111 BUN/Creatinine Ratio 14.0 Glucose 97 Calcium 8.2 L Total Bilirubin 0.20 AST 10 L ALT 14 L Alkaline Phosphatase 86 Total Protein 6.1 L Albumin 1.7 L Globulin 4.4 H Albumin/Globulin Ratio 0.4 L EKG Initial EKG: Comments: EKG interpreted by me showed sinus rhythm at a rate of 93 with no sign of ischemia or infarction pattern Critical Care Time Critical Care Time: Yes Critical care time (excluding procedures): 30-74 minutes Discharge Plan Triage Chief Complaint: Abn Labs ED Provider: John Serrano Dx/Rx/DC Orders Primary Care Provider: Marcio Barron Referrals: Marcio Barron, [Primary Care Provider] - What to do if you have Problems For any increased pain, shortness of breath, bleeding, nausea or vomiting, chestpain, or any unexpected problems, contact your Primary Care Provider. Call [facility] ([phone]) or report to the closest Emergency Room. Call 911 if necessary. 06/03/23 4671 <Electronically signed by John Serrano MD> Cosigner Signature (if applicable): CC: Dr. Marcio Barron DO ~ Signed [facility] Work Phone: [phone] Discharge summary Author Jhon Serrano [facility] June 03, 2023 2:55pm Note Date/Time June 03, 2023 2:55pm [facility] Medical Records Department [address] [place] [address] Emergency Department Summary 06/03/23 MR#: [id number] Acct: [id number] Name: HERBIE KLEIN Rep #:[id number] : 1990 32 From: John Serrano MD PCP: Dr. Marcio Barron DO Status:REG E R Location: ED HPI History of Present Illness Chief Complaint: Abn Labs Onset/Context/Timing Onset: Yesterday Quality: hgb 5 Narrative Narrative: Patient presents for abnormal labs. He had a low hemoglobin on a test that was done yesterday. This was done because he has been fatigued recently. He has noted some red on toilet paper but no other bleeding. No black or tarry stools. No blood thinners. No history of GI bleeding. No history of colonoscopy. No abdominal pain or other associated symptoms or signs of fatigue. PFSH PFSH Allergy/AdvReac Type Severity Reaction Status Date / Time No Known Allergies Allergy Verified 06/03/23 13:15 Social History Smoking Status: Never smoker ROS ROS ED Constitutional Constitutional ED: Denies chills or fever(s) Eyes Eyes: Denies blurry vision ENT ENT ED: Denies ear pain Cardiovascular Cardiovascular: Denies chest pain Respiratory/Chest Respiratory/Chest: Denies dyspnea Gastrointestinal Gastrointestinal: Reports melena; Denies abdominal pain Genitourinary Genitourinary ED: Denies dysuria Musculoskeletal Musculoskeletal: Denies arthralgias Integumentary Denies abscess Neurologic Neurologic: Denies headache(s) Endocrine Endocrinology: Denies cold intolerance Allergic/Immunologic Allergic/Immunologic ED: Denies mouth swelling EXAM Physical Exam Const Vital Signs: 06/03/23 13:14 06/03/23 13:48 Temperature 97 F L Temperature Source Temporal Pulse Rate 90 Respiratory Rate 18 Respiratory Effort Normal Non-Labored Respiratory Pattern Normal Blood Pressure 115/57 L Blood Pressure Mean 76 Pulse Ox 100 Oxygen Delivery Method Room Air Positive well nourished and well developed General Appearance ED: well developed HEENT Reports moist mucous membranes Eyes EOMs intact bilaterally Neck no lymphadenopathy Resp normal respiratory effort Cardio regular rate and regular rhythm GI normal to inspection, nondistended, normoactive bowel sounds GI Narrative: External hemorrhoids noted Back/Spine no CVA tenderness Extremity normal to inspection Neuro Sensorium / Orientation: alert Skin no rashes or lesions noted MDM MDM MDM Narrative Medical decision making narrative: Patient's hemoglobin 5.8. Coags normal. Fecal occult blood test was positive. Patient is hemodynamically stable. Will treat with Protonix and packed RBCs. Discussed with the hospitalist who admit for further care Impression #1 GI bleeding Impression #2 anemia requiring transfusion Lab Data Attestation: I reviewed the patient's lab results. Labs: Laboratory Results - last 24 hr 06/03/23 13:42 WBC 4.0 L RBC 3.58 L Hgb 5.8 L* Hct 22.7 L MCV 63.4 L MCH 16.2 L MCHC 25.6 L RDW Std Deviation 41.9 RDW Coeff of Miriam 18.7 H Plt Count 457 H MPV 7.7 Immature Gran % (Auto) 0.500 Neut % (Auto) 72.0 H Lymph % (Auto) 11.5 L Cochran % (Auto) 13.5 H Eos % (Auto) 2.0 Baso % (Auto) 0.5 Absolute Neuts (auto) 2.9 Absolute Lymphs (auto) 0.46 L Nucleated RBC % 0 Diff Path Review May foll Hypochromasia 2+ Anisocytosis 2+ Microcytosis 2+ PT 14.2 INR 1.1 APTT 32.0 Sodium 140 Potassium 3.4 L Chloride 110 H Carbon Dioxide 26.0 Anion Gap 4 L BUN 12 Creatinine 0.86 Estim Creat Clear Calc 129.35 Est GFR (MDRD) Af Amer 134 Est GFR (MDRD) Non-Af 111 BUN/Creatinine Ratio 14.0 Glucose 97 Calcium 8.2 L Total Bilirubin 0.20 AST 10 L ALT 14 L Alkaline Phosphatase 86 Total Protein 6.1 L Albumin 1.7 L Globulin 4.4 H Albumin/Globulin Ratio 0.4 L EKG Initial EKG: Comments: EKG interpreted by me showed sinus rhythm at a rate of 93 with no sign of ischemia or infarction pattern Critical Care Time Critical Care Time: Yes Critical care time (excluding procedures): 30-74 minutes Discharge Plan Triage Chief Complaint: Abn Labs ED Provider: John Serrano Dx/Rx/DC Orders Primary Care Provider: Marcio Barron Referrals: Marcio Barron DO [Primary Care Provider] - What to do if you have Problems For any increased pain, shortness of breath, bleeding, nausea or vomiting, chestpain, or any unexpected problems, contact your Primary Care Provider. Call [facility] ([phone]) or report to the closest Emergency Room. Call 911 if necessary. 06/03/23 1455 <Electronically signed by John Serrano MD> Cosigner Signature (if applicable): CC: Dr. Marcio Barron DO ~ Signed [facility] Work Phone: [phone] Chief complaint Narrative - Reported* An interactive audio and video telecommunication system which permits real time communications between the patient (at the originating site) and provider (at the distant site) was utilized to providethis telehealth service. * Verbal consent was requested and obtained for minor from Mother (parent/guardian) on this date, 11/11/2022 10:00 AM , for a telehealth visit. * FU * Accompanied by mother. [id number] Work Phone: Evaluation note* Diagnosis Onset Date Resolution Status Anemia acute [facility] Work Phone: Evaluation note* Diagnosis Anxiety disorder, unspecified type- Primary documented in this encounter [facility] Work Phone: Evaluation noteNo assessment information available [facility] Work Phone: Evaluation note* Diagnosis Anxiety disorder, unspecified type documented in this encounter [facility] Work Phone: History and physical note Author Sandro Dey [facility] June 03, 2023 3:14pm Note Date/Time June 03, 2023 3:08pm [facility] Medical Records Department [address] [place] [address] H&P Exam - Hospitalist 06/03/23 1503 MR#: [id number] Acct: [id number] Name: HERBIE KLEIN Rep #:[id number] : 1990 32 From: Sandro Dey DO PCP: Dr. Marcio Barron DO Status:ADM I N Location: [place] [address] HPI - General General Date of Service: 06/03/23 Chief Complaint: Weakness. HPI Narrative HERBIE KLEIN, is a 32 M who presents with weakness. Patient had outpatient labs that showed that he was anemic and patient was advised to come to the emergency room. In the emergency room, patient was noted to have a hemoglobin of 5.8. Patient thinks that he may have had some blood in his stool a week or so ago but that resolved. Denies any melena. No overt hematochezia otherwise. Patient was typed and crossed for 1 unit of packed red blood cells. Patient hadno history of anemia in the past. [facility] Medical History (Updated 06/03/23 @ 15:[address] Sadnro Dey DO) Autism spectrum Allergy/AdvReac Type Severity Reaction Status Date / Time No Known Allergies Allergy Verified 06/03/23 13:15 Social History (Updated 06/03/23 @ 15:[address] Sandro Dey DO) Smoking Status: Never smoker alcohol intake: never substance use type: does not use Vital Signs Vital Signs Vital Signs: 06/03/23 13:14 06/03/23 13:48 Temperature 36.1 C L Temperature Source Temporal Pulse Rate 90 Respiratory Rate 18 Respiratory Effort Normal Non-Labored Respiratory Pattern Normal Blood Pressure 115/57 L Blood Pressure Mean 76 Pulse Ox 100 Oxygen Delivery Method Room Air Weight Weight: 73.482 kg Body Mass Index (BMI) 21.3 Physical Exam Const alert and no apparent distress Constitutional Narrative: Nontoxic. Reserved. Answers questions sparingly but mostly answers yes/no questions. Most of the history is actually obtained through the patient's mother who is at bedside. HEENT normocephalic and hearing grossly normal bilaterally Resp normal respiratory effort and no retractions Cardio regular rate, regular rhythm, S1 normal heart sound and S2 normal heart sound GI normal to inspection, nondistended, normoactive bowel sounds, soft to palpation,non-tender and non-distended Extremity normal to inspection Results Lab / Micro Data Attestation: I reviewed the patient's lab results. 06/03/23 13:42 06/03/23 13:42 Labs: Laboratory Results - last 24 hr 06/03/23 13:42: WBC 4.0 L, RBC 3.58 L, Hgb 5.8 L*, Hct 22.7 L, MCV 63.4 L, MCH 16.2 L, MCHC 25.6 L, RDW Std Deviation 41.9, RDW Coeff of Miriam 18.7 H, Plt Count 457 H, MPV 7.7, Immature Gran % (Auto) 0.500, Neut % (Auto) 72.0 H, Lymph % (Auto) 11.5 L, Cochran % (Auto) 13.5 H, Eos % (Auto) 2.0, Baso % (Auto) 0.5, Absolute Neuts (auto) 2.9, Absolute Lymphs (auto) 0.46 L, Nucleated RBC % 0, Diff Path Review May foll, Hypochromasia 2+, Anisocytosis 2+, Microcytosis 2+, PT 14.2, INR 1.1, APTT 32.0, Sodium 140, Potassium 3.4 L, Chloride 110 H, CarbonDioxide 26.0, Anion Gap 4 L, BUN 12, Creatinine 0.86, Estim Creat Clear Calc 129.35, Est GFR (MDRD) Af Amer 134, Est GFR (MDRD) Non-Af 111, BUN/Creatinine Ratio 14.0, Glucose 97, Calcium 8.2 L, Total Bilirubin 0.20, AST 10 L, ALT 14 L,Alkaline Phosphatase 86, Total Protein 6.1 L, Albumin 1.7 L, Globulin 4.4 H, Albumin/Globulin Ratio 0.4 L Micro: Microbiology 06/03/23 14:12 Stool Stool Occult Blood (AURY) - Final Occult Blood Positive Assessment & Plan Assessment/Plan (1) Anemia: QUALIFIERS: Anemia type: unspecified type Qualified Code(s): D64.9 - Anemia, unspecified PLAN: Appears to be macrocytic which would likely indicate, also given his lack of severe symptoms, that this has been more of a chronic process. Patient has been typed and crossed for 1 unit packed red blood cells. Check iron studies, B12, folate and TSH. Clear liquid diet for now. Consult GI. Patient will need endoscopy at some point, whether that is inpatient versus outpatient will be determined. Patient receiving a bolus of 80 mg of pantoprazole in the emergency room. Will continue with 40 twice daily IV PLAN: Plan Chronic conditions * Autism spectrum: Patient has Asperger's. May limit issues in regards to the patient does require a prep for colonoscopy how well he is going to take. His family can be involved and encouraged him to do so that may be of benefit. VTE prophylaxis with SCDs. Charges/Coding Visit Charges Inpatient E&M: 52169 Init Hosp L2 06/03/23 1517 <Electronically signed by Sandro Dey DO> Cosigner Signature (if applicable): CC: Dr. Marcio Barron DO; Dr. Sandro Dey DO~ Signed [facility] Work Phone: History of Present illness Narrative* Herbie is a 30 year old man with ASD and anxiety. He is doing well on sertraline 100 mg daily. 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 Family has been helping him with seeking employment options. He has a woodworking hobby. He goes with his brother to [email or web address], the [employer] activities. * He is sleeping and eating adequately (sleeps till noon and is awake most of the night). He is living in an apartment attached to his sister's home (they bought it from his parents). He interacts withhis nieces. He keeps busy with books and puzzles. He will be helping his sister at her new job withcomputers. [id number] [address] Work Phone: History of Present illness Narrative* Herbie is a 30 year old man with ASD and anxiety. He is doing well on sertraline 100 mg daily. 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 Family has been helping him with seeking employment options. He has a woodworking hobby. He goes with his brother to [email or web address], the [employer] activities. * He is sleeping and eating adequately (sleeps till noon and is awake most of the night). He is living in an apartment attached to his sister's home (they bought it from his parents). He interacts withhis nieces. He keeps busy with books and puzzles. He will be helping his sister at her new job withcomputers. PB[facility][id number][facility]Tmahqob[facility] [address] Work Phone: History of Present illness Narrative* This visit was completed via Lela due to the restrictions of the COVID-19 pandemic. All issues as below were discussed and addressed but no physical exam was performed. If it was felt that the patient should be evaluated in clinic then they were directed there. The patient's mother verbally consented to the visit. * Herbie is a 31 year old man with ASD and anxiety. He is doing well on sertraline 100 mg daily. Mood is usually good. 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 He volunteers once weekly. He has a woodworking hobby. He goes with his brother to [email or web address] the [employer] activities. * He is sleeping and eating adequately (sleeps till noon and is awake most of the night). He is living in an apartment attached to his sister's home (they bought it from his parents). He interacts withhis nieces. [id number] Work Phone: Reason for referral (narrative)No reason for referral information [facility] Work Phone: Chief Complaint * follow up [...] Purpose Advance Directives No Advanced Directives Records Found Advance Directive Response Recorded Date/ Time Living Will No June 03, 2023 1:48pm Power of Forensic Science Examiner No May 1:48pm Advance Directive Response Recorded Date/ Time Living Will No June 03, 2023 3:55pm Power of Forensic Science Examiner No May 3:55pm Advance Directive Response Recorded Date/ Time Living Will No June 03, 2023 2:55pm Power of Forensic Science Examiner No May 2:55pm Advance Directive Response Recorded Date/ Time Living Will No September 21 11:41am Power of Forensic Science Examiner No September 21 024 11:41am Advance Directive Response Recorded Date/ Time Living Will No September 21 11:41am Do you have a Healthcare Power of Forensic Science Examiner? No September 21, 2023 11:41am Chief Complaint and Reason for Visit Chief Complaint ANEMIA ANEMIA Reason for Visit Anemia Chief Complaint ANEMIA ANEMIA ANEMIA ANEMIA ANEMIA ANEMIA Reason for Visit Anemia Chief Complaint ANEMIA ANEMIA ANEMIA ANEMIA ANEMIA ANEMIA EORDERS/CROHNS Crohn's disease, unspecified, without complication Crohn's disease, unspecified, without complication Reason for Visit Anemia Chief Complaint ANEMIA ANEMIA ANEMIA ANEMIA ANEMIA ANEMIA EORDERS/CROHNS Crohn's disease, unspecified, without complication Crohn's disease, unspecified, without complication STELARA 390MG Reason for Visit Anemia Chief Complaint STELARA 390MG STELARA INJECTION INT LABS/LABSPEC Chief Complaint Admit Date EORDER September 04, 2024 3:17pm STALARA INJ September 12, 2024 12:51pm STELARA INJ October 10, 2024 1 2:49pm 3 M FU/STELARA INJ November 07, 2024 2:49pm Stelara Injection 2024 12: 53pm E ORDERS December 27, 2024 1:0 7pm Reason for Visit Admit Date Anemia November 07, 2024 2:49pm Crohn's disease November 07, 2024 2:49pm Chief Complaint Admit Date STELARA INJ October 10, 2024 1 2:49pm 3 M FU/STELARA INJ November 07, 2024 2:49pm Stelara Injection 2024 12: 53pm E ORDERS December 27, 2024 1:0 7pm Stelara Injection January 02, 2025 12: 59pm Stelara Injection January 30, 2025 12:50 pm Chief Complaint Admit Date 3 M FU/STELARA INJ November 07, 2024 2:49pm Stelara Injection 2024 12: 53pm E ORDERS December 27, 2024 1:0 7pm Stelara Injection January 02, 2025 12: 59pm Stelara Injection January 30, 2025 12:50 pm INT LAB ORDERS February 13, 2025 2:29p m Chief Complaint Admit Date 3 M FU/STELARA INJ November 07, 2024 2:49pm Stelara Injection 2024 12: 53pm E ORDERS December 27, 2024 1:0 7pm Stelara Injection January 02, 2025 12: 59pm Stelara Injection January 30, 2025 12:50 pm INT LAB ORDERS February 13, 2025 2:29p m DISCUSS TREATMENT OPTIONS February 26 1:52pm Reason for Visit Admit Date Anemia November 07, 2024 2:49pm Crohn's disease November 07, 2024 2:49pm Crohn's disease February 26, 2025 1:52 pm Chief Complaint Admit Date E ORDERS December 27, 2024 1:0 7pm Stelara Injection January 02, 2025 12: 59pm Stelara Injection January 30, 2025 12:50 pm INT LAB ORDERS February 13, 2025 2:29p m DISCUSS TREATMENT OPTIONS February 26 1:52pm 6 M FU and Injection April 24, 2025 1: 23pm Reason for Visit Admit Date Crohn's disease February 26, 2025 1:52 pm Anemia April 24, 2025 1:2 3pm Crohn's disease April 24, 2025 1:2 3pm Additional Source Comments (unrecognized sect ion and content) No Status Records FoundNo Status Records FoundNo Status Records FoundNo Status Records FoundNo Status Records Found INFORMATION SOURCE (unrecogn ized section and content) DATE CREATED AUTHOR 11/12/2022 [facility] DATE CREATED AUTHOR AUTHOR'S ORGANIZ ATION 11/12/2022 [employer] DATE CREATED AUTHOR AUTHOR'S ORGANIZ ATION 06/23/2023 [facility] ([place] DATE CREATED AUTHOR AUTHOR'S ORGANIZ ATION 11/16/2024 [facility] DATE CREATED AUTHOR AUTHOR'S ORGANIZ ATION 07/28/2025 [facility] Care Teams (unrecognized sec tion and content) Team Status: Active Member Role Status Dates Dr. Marcio Barron DO Primary Care Provider Active Team Status: Inactive Member Role Status Dates Dr. Marcio Barron DO Primary Care Provider Active Start: September 04, 2024 End: September 04, 2024 LALITO Rodriguez Attending Provider Active Start: September 04, 2024 End: September 04, 2024 LALITO Rodriguez Referring Provider Active Start: September 04, 2024 End: September 04, 2024 Team Status: Inactive Member Role Status Dates Dr. Marcio Barron DO Primary Care Provider Active Start: September 12, 2024 End: September 12, 2024 Dr. Marcio Barron DO Referring Provider Active Start: September 12, 2024 End: September 12, 2024 Dr. Ephraim Sandoval DO Attending Provider Active Start: September 12, 2024 End: September 12, 2024 Team Status: Inactive Member Role Status Dates Dr. Marcio Barron DO Primary Care Provider Active Start: October 10, 2024 End: October 10, 2024 Dr. Marcio Barron DO Referring Provider Active Start: October 10, 2024 End: October 10, 2024 Dr. Ephraim Sandoval DO Attending Provider Active Start: October 10, 2024 End: October 10, 2024 Team Status: Inactive Member Role Status Dates Dr. Marcio Barron DO Primary Care Provider Active Start: November 07, 2024 End: November 07, 2024 Dr. Marcio Barron DO Referring Provider Active Start: November 07, 2024 End: November 07, 2024 Dr. Ephraim Sandoval DO Attending Provider Active Start: November 07, 2024 End: November 07, 2024 Team Status: Inactive Member Role Status Dates Dr. Marcio Barron DO Primary Care Provider Active Start: November 08, 2024 End: November 08, 2024 Dr. Ephraim Sandoval DO Attending Provider Active Start: November 08, 2024 End: November 08, 2024 Dr. Ephraim Sandoval DO Referring Provider Active Start: November 08, 2024 End: November 08, 2024 Team Status: Inactive Member Role Status Dates Dr. Marcio Barron DO Primary Care Provider Active Start: 2024 End: 2024 Dr. Marcio Barron DO Referring Provider Active Start: 2024 End: 2024 Asia Wheeler Attending Provider Active Star t: 2024 End: 2024 Team Status: Inactive Member Role Status Dates Dr. Marcio Barron DO Primary Care Provider Active Start: December 27, 2024 End: December 27, 2024 Dr. Ephraim Sandoval DO Attending Provider Active Start: December 27, 2024 End: December 27, 2024 Dr. Ephraim Sandoval DO Referring Provider Active Start: December 27, 2024 End: December 27, 2024 Team Status: Active Member Role Status Dates Dr. John Serrano MD Emergency Provider Active Dr. Marcio Barron DO Primary Care Provider Active Dr. Sandro Dey DO Admit Provider, Attending Provid er, Other Provider Active Team Status: Active Member Role Status Dates Dr. John Serrano MD Emergency Provider Active Dr. Marcio Barron DO Primary Care Provider Active Dr. Sandro Dey DO Admit Provider, Attending Provid er Active Team Status: Active Member Role Status Dates Dr. John Serrano MD Emergency Provider Active Dr. Marcio Barron DO Primary Care Provider Active Dr. Sandro Dey DO Admit Provider, Other Provider A ctive Dr. Ephraim Sandoval DO Attending Provider Active Team Status: Active Member Role Status Dates Dr. John Serrano MD Emergency Provider Active Dr. Marcio Barron DO Primary Care Provider Active Dr. Sandro Jopperi , DO Admit Provider, Other Provider A ctive Dr. Dank Washington MD Attending Provider, Other Provid er Active Team Status: Active Member Role Status Dates Dr. Marcio Barron , Primary Care Provider Active Dr. Ephraim Sandoval , DO Attending Provider Active Team Status: Inactive Member Role Status Dates Dr. John Serrano MD Emergency Provider Active Dr. Marcio Barron , DO Primary Care Provider Active Dr. Sandro Dey , DO Admit Provider, Other Provider A ctive Dr. Dank Washington MD Attending Provider Active Team Status: Active Member Role Status Dates Dr. John Serrano MD Emergency Provider Active Dr. Marcio Barron DO Primary Care Provider Active Dr. Sandro Dey , DO Admit Provider, Other Provider A ctive Dr. Ephraim Sandoval , DO Attending Provider Active Dr. Dank Washington MD Referring Provider Active Team Status: Active Member Role Status Dates Dr. Marcio Barron DO Primary Care Provider Active Dr. Ephraim Sandoval , DO Attending Provider Active Dr. Dank Washington MD Referring Provider Active Team Status: Inactive Member Role Status Dates Dr. Marcio Barron DO Primary Care Provider Active Dr. Ephraim Sandoval , DO Attending Provider, Referring Provider Active Team Status: Inactive Member Role Status Dates Dr. Marcio Barron , DO Primary Care Provider Active Dr. Ephraim Sandoval DO Attending Provider Active Eight Arm Operator Relationship Specialty Start Date End Date Marcio Barron DO [address] [place] [place] [address] PCP - [facility] 11/09/23 Team Status: Inactive Member Role Status Dates Dr. Marcio Barron DO Primary Care Provider, Referring Provider Active Dr. Ephraim Sandoval DO Attending Provider Active Eight Arm Operator Relationship Specialty Start Date End Date Marcio Barron DO [address] [place] [address] PCP - [facility] 11/09/23 Team Status: Inactive Member Role Status Dates Dr. Marcio Barron DO Primary Care Provider Active Start: January 02, 2025 End: January 02, 2025 Dr. Marcio Barron DO Referring Provider Active Start: January 02, 2025 End: January 02, 2025 Asia Wheeler Attending Provider Active Star t: January 02, 2025 End: January 02, 2025 Team Status: Inactive Member Role Status Dates Dr. Marcio Barron DO Primary Care Provider Active Start: January 30, 2025 End: January 30, 2025 Dr. Marcio Barron DO Referring Provider Active Start: January 30, 2025 End: January 30, 2025 Asia Wheeler Attending Provider Active Star t: January 30, 2025 End: January 30, 2025 Team Status: Inactive Member Role Status Dates Dr. Marcio Barron DO Primary Care Provider Active Start: February 13, 2025 End: February 13, 2025 Dr. Ephraim Sandoval DO Attending Provider Active Start: February 13, 2025 End: February 13, 2025 Dr. Ephraim Sandoval DO Referring Provider Active Start: February 13, 2025 End: February 13, 2025 Team Status: Inactive Member Role Status Dates Dr. Marcio Barron DO Referring Provider Active Start: February 26, 2025 End: February 26, 2025 LALITO Rodriguez Attending Provider Active Start: February 26, 2025 End: February 26, 2025 Team Status: Active Member Role/Relationship Status Dates Dr. Marcio Barron DO Primary Care Provider Active Team Status: Inactive Member Role/Relationship Status Dates Dr. Marcio Barron DO Primary Care Provider Active Start: December 27, 2024 End: December 27, 2024 Dr. Ephraim Sandoval DO Attending Provider Active Start: December 27, 2024 End: December 27, 2024 Dr. Ephraim Sandoval DO Referring Provider Active Start: December 27, 2024 End: December 27, 2024 Team Status: Inactive Member Role/Relationship Status Dates Dr. Marcio Barron DO Primary Care Provider Active Start: January 02, 2025 End: January 02, 2025 Dr. Marcio Barron DO Referring Provider Active Start: January 02, 2025 End: January 02, 2025 Asia Wheeler Attending Provider Active Star t: January 02, 2025 End: January 02, 2025 Team Status: Inactive Member Role/Relationship Status Dates Dr. Marcio Barron DO Primary Care Provider Active Start: January 30, 2025 End: January 30, 2025 Dr. Marcio Barron DO Referring Provider Active Start: January 30, 2025 End: January 30, 2025 Asia Wheeler Attending Provider Active Star t: January 30, 2025 End: January 30, 2025 Team Status: Inactive Member Role/Relationship Status Dates Dr. Marico Barron DO Primary Care Provider Active Start: February 13, 2025 End: February 13, 2025 Dr. Ephraim Sandoval DO Attending Provider Active Start: February 13, 2025 End: February 13, 2025 Dr. Ephraim Sandoval DO Referring Provider Active Start: February 13, 2025 End: February 13, 2025 Team Status: Inactive Member Role/Relationship Status Dates Dr. Marcio Barron DO Referring Provider Active Start: February 26, 2025 End: February 26, 2025 LALITO Rodriguez Attending Provider Active Start: February 26, 2025 End: February 26, 2025 Team Status: Inactive Member Role/Relationship Status Dates Dr. Marcio Barron DO Primary Care Provider Active Start: April 24, 2025 End: April 24, 2025 Dr. Marcio Barron DO Referring Provider Active Start: April 24, 2025 End: April 24, 2025 Dr. Ephraim Sandoval DO Attending Provider Active Start: April 24, 2025 End: April 24, 2025 Goals (unrecognized section and content) Goals may be documented in a n alternate sectionGoals may be documented in an alternate sectionGoals may be documented in an alternate sectionGoals may be documented in an alternate sectionGoals may be documented in an alternate sectionGoals may be documented in an alternate sectionGoals may be documented in an alternate section Reason for Visit (unrecogniz ed section and content) Reason Comments Follow-up Patient here with mo m Reason Comments Follow-up Anxiety Yearly follow up. FOR RECORDS PERTAINING TO PATIENTS WHO ARE [...] BE BASED ON THE PRIMARY CLINICAL RECORDS. [facility]. provides no warranty or guarantee of the accuracy or completeness of information in this document.
[2025-08-30 03:07] LABS: Calprotectin, Stool 1980 ug/g (0-120)
== END | disposition home or self-care (01) ==
LOC: LAB 12:30
PROVIDERS: PCP Family Medicine; Referring Provider Internal Medicine Gastroenterology; Visit Provider Internal Medicine Gastroenterology
DX: K50.90 Crohn's disease, unspecified, without complications (principal)
CPT/HCPCS: 36415; 83993; 85652; 86140